=== PATIENT | male | born 1965 | race Caucasian/White ===

== ENCOUNTER 2018-04-11 16:43 | Inpatient (IN) | payer BC, MEDICARE ==
[2018-04-11] MEDS ORDERED: VANCOMYCIN IV PER PHARMACY 1 EACH MISC MISCELLANE PRN (17:51)
[2018-04-11] MEDS ORDERED: ceFAZolin IN SWFI 2 GM/20 ML SYRINGE IVP ONE (18:00)
[2018-04-11] MEDS ORDERED: VANCOMYCIN 1,750 MG in SODIUM CHLORIDE 0.9% 500 ML 500 ML IVPB ONE (18:30)
[2018-04-11] MEDS ORDERED: SODIUM CHLORIDE 0.9% 1,000 ML IV ONE (18:36)
[2018-04-11] MEDS ORDERED: MORPHINE SULFATE 4 MG/ML SYRINGE IVP STA (18:38)
[2018-04-11] MEDS ORDERED: KETOROLAC 30 MG/ML 1 ML VIAL IVP STA (18:45)
--- NOTE | 2018-04-11 18:48 | ED ---
Skin/Abscess/FB HPI - General Source: patient, RN notes reviewed, old records reviewed Mode of arrival: ambulatory Limitations: no limitations <Nahed Dickey - Last Filed: 04/11/18 19:37> <Derek Moran - Last Filed: 04/11/18 21:13> - General Chief complaint: Skin/Abscess/Foreign Body Stated complaint: RT HAND INFECTION Time Seen by Provider: 04/11/18 17:30 - History of Present Illness Initial comments: Patient is a 52-year-old male with a history of 3 days of worsening swelling and pain to the right hand. Patient reports that a few weeks ago he tripped and fell causing an abrasion over the fourth digit. Patient reports that he's had a history of chronic joint infections after he had sold surgery on the right shoulder many years ago. He's had multiple back surgeries. 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 Patient states that he's had no fevers or chills. He reports that he has had increased pain and swelling of the right hand radiating up towards the wrist. Patient states that he attempted to drain his hand himself over his fourth digit with her wrist area of what he believed be pus. He is reports he inserted a needle and only received had blood return. (Nahed Dickey) - Related Data Home Medications Medication Instructions Recorded Confirmed Cyclobenzaprine [Flexeril] 10 mg PO Q6HR PRN 04/11/18 04/11/18 Exenatide Microspheres [Bydureon 2 mg SQ MARKS 04/11/18 04/11/18 Pen] Furosemide [Lasix] 20 mg PO Q6HR PRN 04/11/18 04/11/18 HYDROmorphone HCL [Exalgo] 48 mg PO BID 04/11/18 04/11/18 HYDROmorphone [Dilaudid] 1 - 2 tab PO BID 04/11/18 04/11/18 Ibuprofen [Motrin Ib] 400 mg PO TID 04/11/18 04/11/18 LORazepam [Ativan] 1 mg PO BID 04/11/18 04/11/18 Lisinopril-Hctz 20-12.5 mg 1 tab PO DAILY 04/11/18 04/11/18 [Zestoretic 20-12.5] Prochlorperazine [Compazine] 10 mg PO TID PRN 04/11/18 04/11/18 tiZANidine [Zanaflex] 4 mg PO QID PRN 04/11/18 04/11/18 Allergies Allergy/AdvReac Type Severity Reaction Status Date / Time prednisone Allergy Rash/Hives Verified 04/11/18 17:58 Review of Systems ROS Other: All systems not noted in ROS Statement are negative. <NobleNahed - Last Filed: 04/11/18 19:37> ROS Other: All systems not noted in ROS Statement are negative. <Derek Moran - Last Filed: 04/11/18 21:13> ROS Statement: Those systems with pertinent positive or pertinent negative responses have been documented in the HPI. Past Medical History Past Medical History: Diabetes Mellitus, Hypertension, Pneumonia Additional Past Medical History / Comment(s): chronic back pain History of Any Multi-Drug Resistant Organisms: None Reported Past Surgical History: Back Surgery, Orthopedic Surgery Additional Past Surgical History / Comment(s): right knee, right shoulder Past Psychological History: No Psychological Hx Reported Smoking Status: Never smoker Past Alcohol Use History: None Reported Past Drug Use History: None Reported <NobleNahed - Last Filed: 04/11/18 19:37> General Exam Limitations: no limitations General appearance: alert, in no apparent distress Head exam: Present: atraumatic, normocephalic, normal inspection Eye exam: Present: normal appearance, PERRL, EOMI. Absent: scleral icterus, conjunctival injection, periorbital swelling ENT exam: Present: normal exam, mucous membranes moist Neck exam: Present: normal inspection. Absent: tenderness, meningismus, lymphadenopathy Respiratory exam: Present: normal lung sounds bilaterally. Absent: respiratory distress, wheezes, rales, rhonchi, stridor Cardiovascular Exam: Present: regular rate, normal rhythm, normal heart sounds. Absent: systolic murmur, diastolic murmur, rubs, gallop, clicks GI/Abdominal exam: Present: soft, normal bowel sounds. Absent: distended, tenderness, guarding, rebound, rigid Extremities exam: Present: full ROM, normal capillary refill. Absent: normal inspection, tenderness, pedal edema, joint swelling, calf tenderness Right Upper Arm exam: Present: normal inspection, full ROM Elbow exam: Present: normal inspection, full ROM Forearm Wrist exam: Present: full ROM, swelling. Absent: normal inspection Hand Wrist exam: Present: tenderness, swelling, erythema (Patient has tenderness , significant swelling and erythema over the dorsum of the right hand. Worsening erythema over the dorsum of the third fourth and fifth digit. There is evidence of skin abrasion over the proximal interphalangeal joint of the fourth digit. He has pain with any range of motion of the fingers. The refills less than 2 seconds. Normal radial pulse.). Absent: normal inspection Vascular: Present: normal capillary refill Back exam: Present: normal inspection Neurological exam: Present: alert, oriented X3, CN II-XII intact Psychiatric exam: Present: normal affect, normal mood Skin exam: Present: warm, dry, intact, normal color. Absent: rash <Nahed Dickey - Last Filed: 04/11/18 19:37> <Derek Moran - Last Filed: 04/11/18 21:13> - General Exam Comments Initial Comments: This is a 52-year-old male. Alert and oriented. Patient appears in no acute distress. (Nahed Dickey) Vital Signs 04/11/18 04/11/18 16:50 19:46 Temperature 98.4 F Pulse Rate 87 83 Respiratory 18 16 Rate Blood Pressure 167/81 165/96 O2 Sat by Pulse 98 99 Oximetry Medical Decision Making - Lab Data Result diagrams: 04/11/18 18:17 04/11/18 18:17 - Radiology Data Radiology results: report reviewed <Nahed Dickey - Last Filed: 04/11/18 19:37> - Lab Data Result diagrams: 04/11/18 18:17 04/11/18 18:17 <Derek Moran - Last Filed: 04/11/18 21:13> - Medical Decision Making 52-year-old male presents emergency department today with right hand swelling pain and infection for the past 3 days. He has an abrasion over the fourth digit that occurred a few weeks ago due to a fall. Patient suffers from chronic back pain. Multiple oral pain medications. At this time Patient reports he tried to attempt to I&D his hand today. Patient reports feeling of blood. This time he has significant cellulitis. Concern for possibility of early tenosynovitis with pain with any range of motion of the fingers. Patient blood work was reviewed, white count was unremarkable. Have a slight left shift. His ESR was elevated 100. CRP is mildly elevated at 19. Patient also has history of diabetes. Patient was started on IV, and vancomycin. Case discussed with Dr. Aguilar. I discussed the case with the Jose Liu except admission for right hand cellulitis and will consult orthopedics. (Nahed Dickey) The patient was seen and examined. All diagnostics were reviewed. The case was discussed with the PA and I agree with the findings as documented. (Derek Moran) - Lab Data Lab Results 04/11/18 04/11/18 Range/Units 18:17 18:17 WBC 9.6 (3.8-10.6) k/uL RBC 4.21 L (4.30-5.90) m/uL Hgb 12.1 L (13.0-17.5) gm/dL Hct 36.2 L (39.0-53.0) % MCV 86.2 (80.0-100.0) fL MCH 28.7 (25.0-35.0) pg MCHC 33.3 (31.0-37.0) g/dL RDW 15.1 (11.5-15.5) % Plt Count 310 (150-450) k/uL Neutrophils % 81 % Lymphocytes % 11 % Monocytes % 6 % Eosinophils % 1 % Basophils % 0 % Neutrophils # 7.8 H (1.3-7.7) k/uL Lymphocytes # 1.1 (1.0-4.8) k/uL Monocytes # 0.6 (0-1.0) k/uL Eosinophils # 0.1 (0-0.7) k/uL Basophils # 0.0 (0-0.2) k/uL ESR 104 H (0-15) mm/hr Sodium 138 (137-145) mmol/L Potassium 4.3 (3.5-5.1) mmol/L Chloride 103 (98-107) mmol/L Carbon Dioxide 26 (22-30) mmol/L Anion Gap 9 mmol/L BUN 19 (9-20) mg/dL Creatinine 0.91 (0.66-1.25) mg/dL Est GFR (CKD-EPI)AfAm >90 (>60 ml/min/1.73 sqM) Est GFR (CKD-EPI)NonAf >90 (>60 ml/min/1.73 sqM) Glucose 104 H (74-99) mg/dL Calcium 9.4 (8.4-10.2) mg/dL C-Reactive Protein 19.2 H (<10.0) mg/L - Radiology Data Evidence of soft tissue swelling on the x-ray. (Nahed Dickey) Disposition Is patient prescribed a controlled substance at d/c from ED?: No Time of Disposition: 19:39 <Nahed Dickey - Last Filed: 04/11/18 19:37> <Derek Moran - Last Filed: 04/11/18 21:13> Clinical Impression: Cellulitis of right hand Disposition: ADMITTED IP TO THIS HOSP Condition: Good Additional Instructions: Patient advised to follow-up with primary care physician. Return to emergency department if any alarming signs or symptoms occur. Referrals: Rosendo Mota MD [Primary Care Provider] - 1-2 days
[2018-04-11 18:51] LABS: Basophils % (A) 0 %; Eosinophils # (A) 0.1 k/uL (0-0.7); Eosinophils % (A) 1 %; HCT 36.2 % (39.0-53.0); HGB 12.1 gm/dL (13.0-17.5); Lymphocytes # (A) 1.1 k/uL (1.0-4.8); Lymphocytes % (A) 11 %; MCH 28.7 pg (25.0-35.0); MCHC 33.3 g/dL (31.0-37.0); MCV 86.2 fL (80.0-100.0); Monocytes # (A) 0.6 k/uL (0-1.0); Monocytes % (A) 6 %; Neutrophils # (A) 7.8 k/uL (1.3-7.7); Neutrophils % (A) 81 %; Platelet Count 310 k/uL (150-450); RBC 4.21 m/uL (4.30-5.90); RDW 15.1 % (11.5-15.5); WBC 9.6 k/uL (3.8-10.6)
[2018-04-11 18:53] LABS: Anion Gap 9 mmol/L; Blood Urea Nitrogen 19 mg/dL (9-20); C Reactive Protein 19.2 mg/L (<10.0); Calcium 9.4 mg/dL (8.4-10.2); Carbon Dioxide 26 mmol/L (22-30); Chloride 103 mmol/L (98-107); Glucose 104 mg/dL (74-99); Potassium 4.3 mmol/L (3.5-5.1); Sodium 138 mmol/L (137-145)
--- NOTE | 2018-04-11 19:05 | XR ---
PROCEDURE: XR hand complete RT 3V DATE AND TIME: 04/11/2018 6:36 PM CLINICAL INDICATION: Infection/pain TECHNIQUE: Department protocol. 3V COMPARISON: None FINDINGS: Diffuse nonspecific soft tissue is noted. No focal soft tissue findings. No radiopaque foreign bodies. No soft tissue emphysema. There is no fracture or malalignment. There is no focal osteopenia. No erosions or radiographic evide nce of joint effusion. IMPRESSION: Soft tissue swelling
[2018-04-11 19:36] LABS: Erythrocyte Sedimentation Rate 104 mm/hr (0-15)
[2018-04-11] MEDS ORDERED: ONDANSETRON 4 MG/2 ML VIAL IVP PRN (19:40)
[2018-04-11] MEDS ORDERED: ACETAMINOPHEN TAB 325 MG TAB PO PRN (19:40)
[2018-04-11] MEDS ORDERED: IBUPROFEN 400 MG TAB PO PRN (19:40)
[2018-04-11] MEDS ORDERED: MORPHINE SULFATE 4 MG/ML SYRINGE IV PRN (19:40)
[2018-04-11] MEDS ORDERED: LORazepam 2 MG/ML INJ IV PRN (19:40)
[2018-04-11] MEDS ORDERED: NALOXONE 0.4 MG/ML 1 ML VIAL IV PRN (19:40)
[2018-04-11] MEDS ORDERED: CYCLOBENZAPRINE 10 MG TAB PO PRN (19:52)
[2018-04-11] MEDS ORDERED: FUROSEMIDE 20 MG TAB PO PRN (19:52)
[2018-04-11] MEDS ORDERED: tiZANidine 4 MG TAB PO PRN (19:52)
[2018-04-11] MEDS ORDERED: PROCHLORPERAZINE 10 MG TAB PO PRN (19:52)
[2018-04-11] MEDS: HYDROMORPHONE HCL PO SCH (22:45)
[2018-04-11 23:07] VITALS: BMI 38.6
[2018-04-11] MEDS: LORazepam 1 MG TAB PO SCH (23:16)
[2018-04-11] MEDS: IBUPROFEN 400 MG TAB PO SCH (23:17)
[2018-04-11 23:19] LABS: Glucose,Whole Blood 116 mg/dL (75-99)
[2018-04-11] MEDS: SODIUM CHLORIDE 0.9% 1,000 ML IV SCH (23:57)
[2018-04-12] MEDS: KETOROLAC 30 MG/ML 1 ML VIAL IVP PRN ×2 (01:42→08:12)
[2018-04-12] MEDS: HYDROmorphone 1 MG/ML 1 ML SYRINGE IVP PRN ×7 (03:09→23:40)
[2018-04-12] MEDS: VANCOMYCIN 1,500 MG in SODIUM CHLORIDE 0.9% 250 ML IVPB SCH ×3 (03:11→20:38)
[2018-04-12] MEDS: SODIUM CHLORIDE 0.9% 1,000 ML IV SCH ×2 (05:56→13:41)
[2018-04-12] MEDS: HYDROMORPHONE HCL PO SCH (08:16)
[2018-04-12] MEDS: LORazepam 1 MG TAB PO SCH ×2 (08:18→21:13)
[2018-04-12] MEDS: LISINOPRIL-HCTZ 20-12.5 MG 1 EACH TAB PO SCH ×3 (08:18→11:13)
[2018-04-12] MEDS: PANTOPRAZOLE 40 MG/10 ML VIAL IV SCH (08:38)
[2018-04-12] MEDS: IBUPROFEN 400 MG TAB PO SCH ×3 (10:14→21:07)
--- NOTE | 2018-04-12 13:02 | P.CNOR ---
History of Present Illness - [facility] Consult date: 04/12/18 Requesting physician: Nahed Dickey Consult reason: other (Right hand and fourth metacarpal cellulitis) History of present illness: Patient is a very pleasant 52-year-old male who is seen at the bedside for further evaluation of the right hand. Patient states he sustained multiple falls at home at nighttime of unknown cause approximately 2 weeks ago. At that time he sustained a small abrasion over the dorsum of the right ring finger near the knuckle of the hand. Over the past couple days he has noticed increased erythema and swelling over the abrasion location. He presented to the emergency department yesterday for further evaluation. At that time he was admitted and started on vancomycin. He states since his admission symptoms have significantly worsened. He now has significant swelling over the right hand with a raised palpable fluid collection over the dorsum of the right ring finger near the fourth metacarpal phalangeal joint. He has decreased range of motion of the right hand. He is unable to make a fist. His pain is present but is controlled. He is more concerned about the significant swelling that is radiating into the right hand and wrist. He does have erythema over the dorsum of the right ring finger and hand that is quite significant. The erythema is most significant near the fourth metacarpal phalangeal joint just distal to this joint. He also has erythema on the palmar side of the hand most significant at the fourth metacarpal phalangeal joint. He states he has noticed some spasms of the right hand that started since his admittance. He denies any other injuries. He denies difficulty with range of motion of the right shoulder or right elbow. Patient has a medical history which includes diabetes mellitus and hypertension. Past Medical History Past Medical History: Diabetes Mellitus, Hypertension, Pneumonia Additional Past Medical History / Comment(s): Chronic back pain History of Any Multi-Drug Resistant Organisms: None Reported Past Surgical History: Back Surgery, Orthopedic Surgery Additional Past Surgical History / Comment(s): Right knee, right shoulder, multiple back surgeries with hardware. Past Psychological History: No Psychological Hx Reported Smoking Status: Never smoker Past Alcohol Use History: None Reported Past Drug Use History: None Reported Medications and Allergies Home Medications Medication Instructions Recorded Confirmed Type Cyclobenzaprine [Flexeril] 10 mg PO Q6HR PRN 04/11/18 04/11/18 History Exenatide Microspheres [Bydureon 2 mg SQ MARKS 04/11/18 04/11/18 History Pen] Furosemide [Lasix] 20 mg PO Q6HR PRN 04/11/18 04/11/18 History HYDROmorphone HCL [Exalgo] 48 mg PO BID 04/11/18 04/11/18 History HYDROmorphone [Dilaudid] 1 - 2 tab PO BID 04/11/18 04/11/18 History Ibuprofen [Motrin Ib] 400 mg PO TID 04/11/18 04/11/18 History LORazepam [Ativan] 1 mg PO BID 04/11/18 04/11/18 History Lisinopril-Hctz 20-12.5 mg 1 tab PO DAILY 04/11/18 04/11/18 History [Zestoretic 20-12.5] Prochlorperazine [Compazine] 10 mg PO TID PRN 04/11/18 04/11/18 History tiZANidine [Zanaflex] 4 mg PO QID PRN 04/11/18 04/11/18 History Allergies Allergy/AdvReac Type Severity Reaction Status Date / Time prednisone Allergy Rash/Hives Verified 04/11/18 23:18 Physical Examination Physical Exam: Patient is awake, alert, and oriented 3 Vital signs stable Good chest excursion with deep inspiration and expiration Evidence of significant swelling over the right hand with a raised palpable fluid collection over the dorsum of the right ring finger near the fourth metacarpal phalangeal joint Decreased range of motion of the right hand with difficulty making a fist and performing extension of the fingers Evidence of swelling over all fingers of the right hand, the right hand, and extending to the right wrist Evidence of erythema over the dorsum of the right ring finger and hand with the erythema is most significant near the fourth metacarpal phalangeal joint just distal to this joint Evidence of erythema on the palmar side of the hand most significant at the fourth metacarpal phalangeal joint Pain on palpation around the elevated wound site Neurovascular intact right upper extremity Adequate full range of motion of the right elbow and shoulder without difficulty Results X-rays of the right hand: Evidence of soft tissue swelling without evidence of fracture, erosion, radiopaque foreign body, or joint effusion - Labs Labs: Abnormal Lab Results - Last 24 Hours (Table) 04/11/18 04/11/18 04/11/18 Range/Units 18:17 18:17 23:15 RBC 4.21 L (4.30-5.90) m/uL Hgb 12.1 L (13.0-17.5) gm/dL Hct 36.2 L (39.0-53.0) % Neutrophils # 7.8 H (1.3-7.7) k/uL ESR 104 H (0-15) mm/hr Glucose 104 H (74-99) mg/dL POC Glucose (mg/dL) 116 H (75-99) mg/dL C-Reactive Protein 19.2 H (<10.0) mg/L H & H 04/11/18 Range/Units 18:17 Hgb 12.1 L (13.0-17.5) gm/dL Hct 36.2 L (39.0-53.0) % Result Diagrams: 04/11/18 18:17 04/11/18 18:17 Assessment and Plan Assessment: Assessment: Status post I&D palpable fluid collection of the right proximal fourth metacarpal near the fourth metacarpal phalangeal joint Right hand and fourth digit cellulitis Wound with fluid collection over the right dorsal ring finger near the fourth metacarpal phalangeal joint Swelling at the right fingers, hand, and wrist Decreased range of motion with flexion and extension of the fingers of the right hand Pain at the right fourth digit and right hand History of hypertension and diabetes mellitus (1) Right hand pain Current Visit: Yes Status: Acute Code(s): M79.641 - PAIN IN RIGHT HAND SNOMED Code(s): 19789080 (2) Swelling of right hand Current Visit: Yes Status: Acute Code(s): M79.89 - OTHER SPECIFIED SOFT TISSUE DISORDERS SNOMED Code(s): 212965714 (3) History of hypertension Current Visit: Yes Status: Acute Code(s): Z86.79 - PERSONAL HISTORY OF OTHER DISEASES OF THE CIRCULATORY SYSTEM SNOMED Code(s): 188878520 (4) History of diabetes mellitus Current Visit: Yes Status: Acute Code(s): Z86.39 - PERSONAL HISTORY OF ENDO , NUTRITIONAL AND METABOLIC DISEASE SNOMED Code(s): 784530358 (5) Cellulitis of right hand Current Visit: Yes Status: Acute Code(s): L03.113 - CELLULITIS OF RIGHT UPPER LIMB SNOMED Code(s): 26692121 Plan: Plan: 1. Patient has been discussed in detail with Dr. Jackson. Given the elevated fluid collection which appears just under the skin, we will plan for bedside irrigation and debridement. We will take culture and sent the culture for aerobic testing. Patient will plan to proceed with 30 minutes soaks 4 times per day with warm soapy water. When wound site is not being soaked, we will plan for dry dressing to be placed. Patient may also elevate the right hand, massage the area, and apply ice for comfort support as needed. We will plan to continue with antibiotic IV treatment with vancomycin as prescribed. Consultation has been placed for Dr. Emery in infectious disease. He may adjust the antibiotic medications as he feels appropriate. We will continue to follow the patient closely. Patient has been discussed in detail with Dr. Mello Jackson who agrees with this plan. Dr. Jackson will plan to see the patient at the bedside today. 2. Consultation has been placed with Dr. Emery in infectious disease 3. Medicine will continue to follow the patient Time with Patient: Greater than 30
--- NOTE | 2018-04-12 13:08 | P.PN ---
Progress Note - Text Progress Note Date: 04/12/18 Procedure performed: Irrigation and debridement of the wound of the dorsum of the fourth metacarpal near but not into the fourth metacarpal phalangeal joint Procedure performed by: Alfredo Lazo PA-C Procedure note: Irrigation and debridement procedure was described in detail with the patient and his family. Plan of care following irrigation and debridement was discussed with the patient and his family in detail. Patient agreed to proceed forward bedside irrigation and debridement. Patient's right hand was draped over a wash basin. A 10 blade scalpel was used to make a 2 cm incision over the wound site at the dorsum of the fourth metacarpal near but not into the fourth metacarpal phalangeal joint. Evidence of pus and blood evacuated from the incision site. The wound site was swabbed for culture and sent for aerobic testing. The wound site was irrigated with 20 mL of saline and the wound site appeared clean. Patient tolerated the procedure well. Wound was not dressed at that time. Patient was prepped to proceed forward with warm soapy water soak for half hour for the wound site.
[2018-04-12] MEDS: HYDROMORPHONE HCL 16 MG PO SCH ×2 (13:38→21:08)
[2018-04-12] MEDS ORDERED: HYDROcodone/APAP 5-325MG 1 EACH TAB PO PRN (18:26)
[2018-04-12] MEDS: ceFAZolin IN SWFI 2 GM/20 ML SYRINGE IVP SCH (20:38)
[2018-04-12] MEDS ORDERED: TEMAZEPAM 15 MG CAP PO PRN (21:00)
[2018-04-12] MEDS: HEPARIN SODIUM,PORCINE 5,000 UNIT/ML 1 ML VIAL SQ SCH (21:06)
[2018-04-12 21:12] LABS: Glucose,Whole Blood 123 mg/dL (75-99)
[2018-04-12] MEDS: INSULIN ASPART 100 UNIT/ML 1 ML 10 ML VIAL SQ SCH (21:14)
--- NOTE | 2018-04-12 23:27 | HP ---
HISTORY AND PHYSICAL CHIEF COMPLAINTS: Pain and swelling of the right index finger. HISTORY OF PRESENT ILLNESS: This 52-year-old gentleman with a past medical history of multiple medical problems including diabetes, hypertension, history of pneumonia, history of DJD being followed by Dr. Rosendo Mota in the outpatient setting apparently fell in the bathroom and caused abrasion of the 4th digit and subsequently patient developed significant infection and abscess and Orthopedics saw the patient and is planning incision drainage at this time on the right hand on the 4th digit. There is no history of fever, rigors. No history of headache, loss of consciousness, seizures at this time. White count is 9.6. The patient also had hand x-ray which showed soft tissue swelling. There is no history of fever, rigors or chills at this time. PAST MEDICAL HISTORY: Diabetes type 2, hypertension, history of pneumonia, history of chronic back pain. MEDICATIONS: Prior to admission home medications are: 1. Zanaflex 4 mg q.i.d. p.r.n. 2. Zestril 20/12.5 p.o. daily. 3. Ativan 1 mg p.o. b.i.d. 4. Motrin 400 mg p.o. t.i.d. 5. Exalgo 48 mg p.o. b.i.d. 6. Dilaudid 1 tablet p.o. b.i.d. 7. Lasix 20 mg q.6 p.r.n. 8. Bydureon 20 units subcu. 9. Flexeril 10 mg p.o. q.6h p.r.n. 10.Compazine 10 mg p.o. t.i.d. p.r.n. ALLERGIES: PREDNISONE. FAMILY HISTORY: No history of heart disease or strokes in the family. SOCIAL HISTORY: No history of smoking. No history of alcohol intake. REVIEW OF SYSTEMS: ENT: No diminished hearing or vision. CARDIOVASCULAR: No angina or palpitations. RESPIRATORY: No cough or hemoptysis. GI: No nausea or vomiting. : No dysuria. NERVOUS SYSTEM: No numbness or weakness. ALLERGY/IMMUNOLOGY: No asthma or hayfever. MUSCULOSKELETAL as mentioned earlier. HEMATOLOGY/ONCOLOGY: No history of anemia. ENDOCRINE: As mentioned earlier. CONSTITUTIONAL: As mentioned earlier. Dermatology: Negative. Rheumatology: Negative. Psychiatry: As mentioned earlier. PHYSICAL EXAMINATION: GENERAL: The patient is alert and oriented times three. VITAL SIGNS: Pulse 113, blood pressure 140/71. Respiratory rate 18, temperature 98.9, pulse ox 94% on room air. HEENT: Conjunctivae normal. Oral mucosa moist. NECK is no jugular venous distention. No carotid bruit. No lymph node enlargement. CARDIOVASCULAR: S1, S2 muffled. RESPIRATORY: Breath sounds diminished in the bases. A few scattered rhonchi and crackles. ABDOMEN: Soft, nontender. No mass palpable. Minimal facial puffiness present. LEGS: No edema. No swelling. NERVOUS SYSTEM: No focal deficits. Examination of the hand: The right hand has significant swelling and pain and as well as significant pointing also of the proximal phalanx of the 4th finger present. LABS: WBC 9.2, hemoglobin 12.1. 19.2. ASSESSMENT: 1. Acute cellulitis of the right fourth digit. 2. Diabetes mellitus type 2. 3. Hypertension. 4. History of pneumonia. 5. History of chronic back pain and degenerative joint disease. RECOMMENDATIONS AND DISCUSSION: This 52-year-old gentleman presented with multiple complex medical issues, we will monitor the patient closely. Continue the current medications, continue with monitoring, symptomatic treatment. We will initiate broad-spectrum IV antibiotics. The patient is started on vancomycin. I would add Unasyn to the current regimen and I would also recommend to monitor blood sugars closely and continue to monitor. We will also get infectious disease evaluation. Overall prognosis guarded because of multiple complex medical issues. Further recommendations to follow. MMODL / IJN: [id number] / MTDD
--- NOTE | 2018-04-12 23:34 | P.CONS ---
History of Present Illness - Reason for Consult Consult date: 04/12/18 - Chief Complaint pain right hand - History of Present Illness 52 year old male with multiple medical problems presents to the ER with complaints of rapidly progressive pain and swelling to the right hand. Patient relates that he has had medical problems over the years including chronic facial edema of an unknown etiology.The patient relates that he's been having increasing difficulties over the last several days. He relates that at nighttime when he gets up sometimes to urinate feels quite poorly in the other night upon awakening he was stumbling because he was so weak and appears to have had a near syncopal event following through a doorway injuring his right hand. He relates that he scraped the top of the hand. For the first few days does not seem to be much of an issue. But then just before admission the hand started to become much more painful. He has a history of chronic back pain and relates he normally does well with chronic pain. Today he started to swell became immensely painful and presented to the emergency center. He is subsequently been seen by orthopedics and an incision and drainage was performed of the abscess that had formed on the dorsum of the right hand fourth finger. This time the patient is feeling better but still poorly because of the pain swelling and drainage. He believes he had a fever at home but did not check his temperature. He is having no further chill or right ear. He relates that he's been resting and has had no further presyncopal events. Review of Systems 52-year-old maleuncomfortable HEENT:Denies headache or acute visual change. Denies sinus or mouth discomforts. Denies neck stiffness or pain. Denies significant oral cavity pain. Denies difficulty on swallowing.chronic facial swelling Lungs: Denies significant shortness of breath, cough, sputum production, or hemoptysis. Cardiovascular: Denies significant shortness of breath, chest pain, chest wall pain, orthopnea, dyspnea on exertion, syncope Gastrointestinal:Denies nausea, vomiting, diarrhea, constipation, hematemesis, melena, hematochezia. No no significant change of bowel habit noticed. Musculoskeletal: denies significant myalgias or arthralgias. No new joint swelling. Denies new back pain. Skin: as per the HPI wound and infection to the right hand Neuro: Denies headache or visual change. Denies any new onset weakness or difficulty with ambulation. Denies falls or seizures. Psychiatric:Denies anxiety or depression. Endocrine: Ongoing fatigue questionable diabetes, nursing staff relates he became quite angry when diabetes was discussed Past Medical History Past Medical History: Diabetes Mellitus, Hypertension, Pneumonia Additional Past Medical History / Comment(s): Chronic back pain History of Any Multi-Drug Resistant Organisms: None Reported Past Surgical History: Back Surgery, Orthopedic Surgery Additional Past Surgical History / Comment(s): Right knee, right shoulder, multiple back surgeries with hardware. Past Psychological History: No Psychological Hx Reported Additional Psychological History / Comment(s): and lives in the family is . One adult child. No experience. No international travel. Disabled. No tobacco or alcohol use related Smoking Status: Never smoker Past Alcohol Use History: None Reported Past Drug Use History: None Reported Medications and Allergies Home Medications and Allergies Comment(s): Current Medications Acetaminophen (Tylenol Tab) 650 mg PO Q6HR PRN PRN Reason: Mild Pain or Fever > 100.5 Hydrocodone Bitart/Acetaminophen (Kittrell 5-325) 1 each PO Q6HR PRN PRN Reason: Pain Cefazolin Sodium (Kefzol) 2 gm IVP Q8H [facility] Last Admin: 04/12/18 20:38 Dose: 2 gm Cyclobenzaprine HCl (Flexeril) 10 mg PO Q6HR PRN PRN Reason: Spasms Furosemide (Lasix) 20 mg PO Q6HR PRN PRN Reason: WATER RETENTION Lisinopril/HCTZ (Zestoretic 20-12.5) 1 each PO DAILY [facility] Last Admin: 04/12/18 11:13 Dose: 1 each Heparin Sodium (Porcine) (Heparin) 5,000 unit SQ Q12HR [facility] Last Admin: 04/12/18 21:06 Dose: Not Given Hydromorphone HCl (Dilaudid) 0.5 mg IVP Q4HR PRN PRN Reason: Pain Last Admin: 04/12/18 19:42 Dose: 0.5 mg Sodium Chloride (Saline 0.9%) 1,000 mls @ 100 mls/hr IV .Q10H [facility] Last Admin: 04/12/18 13:41 Dose: 100 mls/hr Vancomycin HCl 1,500 mg/ (Sodium Chloride) 250 mls @ 125 mls/hr IVPB Q8H [facility] Last Admin: 04/12/18 20:38 Dose: 125 mls/hr Ibuprofen (Motrin) 400 mg PO TID [facility] Last Admin: 04/12/18 21:07 Dose: 400 mg Insulin Aspart (Novolog) 0 unit SQ ACHS [facility]; Protocol Last Admin: 04/12/18 21:14 Dose: Not Given Ketorolac Tromethamine (Toradol) 30 mg IVP Q6HR PRN PRN Reason: Moderate Pain Stop: 04/16/18 19:41 Last Admin: 04/12/18 08:12 Dose: 30 mg Lorazepam (Ativan) 0.5 mg IV Q6HR PRN PRN Reason: Anxiety Lorazepam (Ativan) 1 mg PO BID [facility] Last Admin: 04/12/18 21:13 Dose: Not Given Miscellaneous Information (Vancomycin Trough Due) 1 each MISCELLANE ONCE ONE Stop: 04/13/18 11:01 Naloxone HCl (Narcan) 0.2 mg IV Q2M PRN PRN Reason: Opioid Reversal Non-Formulary Medication (Exenatide Microspheres [Bydureon Pen]) 2 mg SQ [facility] Hydromorphone Hcl [ (Exalgo] 16 Mg) 48 mg PO BID [facility] Last Admin: 04/12/18 21:08 Dose: 48 mg Ondansetron HCl (Zofran) 4 mg IVP Q8HR PRN PRN Reason: Nausea And Vomiting Pantoprazole Sodium (Protonix) 40 mg IV DAILY [facility] Last Admin: 04/12/18 08:38 Dose: 40 mg Prochlorperazine Maleate (Compazine) 10 mg PO TID PRN PRN Reason: Nausea And Vomiting Temazepam (Restoril) 15 mg PO HS PRN PRN Reason: Insomnia Tizanidine HCl (Zanaflex) 4 mg PO QID PRN PRN Reason: Spasms Last Admin: 04/11/18 23:13 Dose: 4 mg Home Medications Medication Instructions Recorded Confirmed Type Cyclobenzaprine [Flexeril] 10 mg PO Q6HR PRN 04/11/18 04/11/18 History Exenatide Microspheres [Bydureon 2 mg SQ [facility]KS 04/11/18 04/11/18 History Pen] Furosemide [Lasix] 20 mg PO Q6HR PRN 04/11/18 04/11/18 History HYDROmorphone HCL [Exalgo] 48 mg PO BID 04/11/18 04/11/18 History HYDROmorphone [Dilaudid] 1 - 2 tab PO BID 04/11/18 04/11/18 History Ibuprofen [Motrin Ib] 400 mg PO TID 04/11/18 04/11/18 History LORazepam [Ativan] 1 mg PO BID 04/11/18 04/11/18 History Lisinopril-Hctz 20-12.5 mg 1 tab PO DAILY 04/11/18 04/11/18 History [Zestoretic 20-12.5] Prochlorperazine [Compazine] 10 mg PO TID PRN 04/11/18 04/11/18 History tiZANidine [Zanaflex] 4 mg PO QID PRN 04/11/18 04/11/18 History Allergies Allergy/AdvReac Type Severity Reaction Status Date / Time prednisone Allergy Rash/Hives Verified 04/11/18 23:18 Physical Exam Vitals: Vital Signs Temp Pulse Resp BP Pulse Ox 04/12/18 15:00 98.9 F 113 H 18 145/79 94 L 04/12/18 07:00 96.5 F L 60 18 148/72 96 04/11/18 23:15 97.2 F L 79 20 155/85 99 Intake and Output 04/12/18 04/12/18 04/12/18 06:59 14:59 22:59 Intake Total 200 Balance 200 Intake: Oral 200 Other: Voiding Method Toilet # Voids 3 Weight 92.805 kg 52-year-old male in no distress HEENT: Anicteric conjunctiva are pink and moist nasal mucosa grossly intact without significant lesions, there is no thrush.he has facial edema particularly periorbital in naturenontender no open lesions Neck: The neck is supple without significant lymphadenopathy or thyromegaly. Lungs: Good bilateral air entry without significant crackles or wheezing. There is no significant bronchial sounds. There is no egophony or dullness. Heart: Regular rate and rhythm with an audible S1-S2, no S3 no S4. There is no significant murmur click or rub, PMI was nondisplaced. Abdomen: Positive bowel sounds soft and nontender without palpable masses or organomegaly. There was no guarding or rebound. Extremities: left arm is normal. Left arm reveals evidence of the dressing in place on the right hand from the recent incision and drainage of the abscess on the dorsum of the right fourth finger. Dressing not removed. There is the lack of significant ascending erythema. There is no epitrochlear or axillary lymphadenopathy. No other abnormal lymph nodes are seen. Lower extremities have minimal trace edema. No other open ulcerations are seen. Neuro: Awake alert oriented to person place and time. There are no acute new gross focal sensory motor deficits. Results CBC & Chem 7: 04/11/18 18:17 04/11/18 18:17 Labs: Abnormal Lab Results - Last 24 Hours (Table) 04/11/18 04/12/18 Range/Units 23:15 21:11 POC Glucose (mg/dL) 116 H 123 H (75-99) mg/dL Microbiology - Last 24 Hours (Table) 04/11/18 18:17 Blood Culture - Preliminary Blood No Growth after 24 hours Laboratory Results WBC 9.6 k/uL (3.8-10.6) 04/11/18 18:17 RBC 4.21 m/uL (4.30-5.90) L 04/11/18 18:17 Hgb 12.1 gm/dL (13.0-17.5) L 04/11/18 18:17 Hct 36.2 % (39.0-53.0) L 04/11/18 18:17 MCV 86.2 fL (80.0-100.0) 04/11/18 18:17 MCH 28.7 pg (25.0-35.0) 04/11/18 18:17 MCHC 33.3 g/dL (31.0-37.0) 04/11/18 18:17 RDW 15.1 % (11.5-15.5) 04/11/18 18:17 Plt Count 310 k/uL (150-450) 04/11/18 18:17 Neutrophils % 81 % 04/11/18 18:17 Lymphocytes % 11 % 04/11/18 18:17 Monocytes % 6 % 04/11/18 18:17 Eosinophils % 1 % 04/11/18 18:17 Basophils % 0 % 04/11/18 18:17 Neutrophils # 7.8 k/uL (1.3-7.7) H 04/11/18 18:17 Lymphocytes # 1.1 k/uL (1.0-4.8) 04/11/18 18:17 Monocytes # 0.6 k/uL (0-1.0) 04/11/18 18:17 Eosinophils # 0.1 k/uL (0-0.7) 04/11/18 18:17 Basophils # 0.0 k/uL (0-0.2) 04/11/18 18:17 ESR 104 mm/hr (0-15) H 04/11/18 18:17 Sodium 138 mmol/L (137-145) 04/11/18 18:17 Potassium 4.3 mmol/L (3.5-5.1) 04/11/18 18:17 Chloride 103 mmol/L (98-107) 04/11/18 18:17 Carbon Dioxide 26 mmol/L (22-30) 04/11/18 18:17 Anion Gap 9 mmol/L 04/11/18 18:17 BUN 19 mg/dL (9-20) 04/11/18 18:17 Creatinine 0.91 mg/dL (0.66-1.25) 04/11/18 18:17 Est GFR (CKD-EPI)AfAm >90 (>60 ml/min/1.73 sqM) 04/11/18 18:17 Est GFR (CKD-EPI)NonAf >90 (>60 ml/min/1.73 sqM) 04/11/18 18:17 Glucose 104 mg/dL (74-99) H 04/11/18 18:17 POC Glucose (mg/dL) 123 mg/dL (75-99) H 04/12/18 21:11 POC Glu Double Corner Cutter ID [place], Betsy 04/12/18 21:11 Calcium 9.4 mg/dL (8.4-10.2) 04/11/18 18:17 C-Reactive Protein 19.2 mg/L (<10.0) H 04/11/18 18:17 Microbiology 04/12/18 12:11 Hand - Right Wound Culture - Preliminary 04/11/18 18:17 Blood Blood Culture - Preliminary No Growth after 24 hours Assessment and Plan (1) Abscess of right hand including fingers Narrative/Plan: [id number] who has a history of chronic back pain with multiple back surgeries relates that he had what appears to be a presyncopal event causing an injury to the dorsum of his right hand upon falling. Some local care was given and he developed a significant amount of swelling erythema and pain to the right hand. Upon presentation emergency room at rapidly worsened and he was seen by orthopedics for drainage of the developing abscess. It is related that at the time of the incision and drainage there was no tendon or joint involvement. Patient is feeling better to show some drainage at the site. Does not seem to have a significantly ascending infection at this time. Blood sugars as noted are slightly elevated. Antibiotic therapy with vancomycin therapy has been started cefazolin is added with concerns to an MSSA infection and try to maximize therapy. The patient has periorbital edema which she relates has been persistent for some time.he does not have renal failure. Thyroid status will be checked. The patient relates to what may be a presyncopal event. His pulse appears to have acceptable volume but seems to have diminished upstroke. Carotid Dopplers will be performed to further evaluate and may need echocardiogram also. His pain control appears to be adequate with the multiple lesions that are being utilized. Current Visit: Yes Status: Acute Code(s): L02.511 - CUTANEOUS ABSCESS OF RIGHT HAND SNOMED Code(s): 6598270 (2) Cellulitis of right hand Current Visit: Yes Status: Acute Code(s): L03.113 - CELLULITIS OF RIGHT UPPER LIMB SNOMED Code(s): 85417441 (3) Periorbital edema Current Visit: Yes Status: Acute Code(s): R60.0 - LOCALIZED EDEMA SNOMED Code(s): 68340557 (4) Pre-syncope Current Visit: Yes Status: Acute Code(s): R55 - SYNCOPE AND COLLAPSE SNOMED Code(s): 018267064
[2018-04-13] MEDS: HYDROmorphone 1 MG/ML 1 ML SYRINGE IVP PRN ×6 (04:11→23:56)
[2018-04-13] MEDS: VANCOMYCIN 1,500 MG in SODIUM CHLORIDE 0.9% 250 ML IVPB SCH ×3 (04:11→20:16)
[2018-04-13] MEDS: ceFAZolin IN SWFI 2 GM/20 ML SYRINGE IVP SCH ×3 (04:11→20:15)
[2018-04-13] MEDS: SODIUM CHLORIDE 0.9% 1,000 ML IV SCH ×3 (04:12→21:30)
[2018-04-13 07:47] LABS: Glucose,Whole Blood 94 mg/dL (75-99)
[2018-04-13] MEDS: INSULIN ASPART 100 UNIT/ML 1 ML 10 ML VIAL SQ SCH ×4 (07:58→21:27)
[2018-04-13] MEDS: HEPARIN SODIUM,PORCINE 5,000 UNIT/ML 1 ML VIAL SQ SCH ×2 (08:01→21:26)
[2018-04-13] MEDS: LISINOPRIL-HCTZ 20-12.5 MG 1 EACH TAB PO SCH (08:01)
[2018-04-13] MEDS: PANTOPRAZOLE 40 MG/10 ML VIAL IV SCH (08:02)
[2018-04-13] MEDS: LORazepam 1 MG TAB PO SCH (08:08)
[2018-04-13] MEDS: IBUPROFEN 400 MG TAB PO SCH ×3 (08:08→21:31)
[2018-04-13] MEDS ORDERED: LORazepam 1 MG TAB PO PRN (08:12)
--- NOTE | 2018-04-13 09:21 | US ---
EXAMINATION TYPE: US carotid duplex BILAT DATE OF EXAM: 04/13/2018 COMPARISON: NONE CLINICAL HISTORY: syncope. Patient stated he fell upon awakening EXAM MEASUREMENTS: RIGHT: Peak Systolic Velocity (PSV) cm/sec ----- Right CCA: 97.9 ----- Right ICA: 109.2 ----- Right ECA: 123.8 ICA/CCA ratio: 1.1 RIGHT: End Diastole cm/sec ----- Right CCA: 17.1 ----- Right ICA: 0.0 ----- Right ECA: 10.1 LEFT: Peak Systolic Velocity (PSV) cm/sec ----- Left CCA: 78.8 ----- Left ICA: 75.5 ----- Left ECA: 88.7 ICA/CCA ratio: 1.0 LEFT: End Diastole cm/sec ----- Left CCA: 16.1 ----- Left ICA: 22.7 ----- Left ECA: 0.0 VERTEBRALS (direction of flow): Right Vertebral: Antegrade Left Vertebral: Antegrade Rhythm: Normal IMPRESSION: Very mild intimal wall changes at right carotid bifurcation. At Left distal CCA soft wall plaque is noted in linear appearance from distal CCA to mid CCA. Criteria for Assigning % of Stenosis / Diameter reduction (Estimation based on the indirect measurements of the internal carotid artery velocities (ICA PSV). 1. Normal (no stenosis)=ICA PSV < 125 cm/s: ratio < 2.0: ICA EDV<40 cm/s. 2. Less than 50% stenosis=ICA PSV < 125 cm/s: ratio < 2.0: ICA EDV<40 cm/s. 3. 50 to 69% stenosis=ICA PSV of 125 to 230 cm/s: ration 2.0 ? 4.0: ICA EDV 40-100 cm/s. 4. Greater than 70% stenosis to near occlusion= ICA PSV > 230 cm/s: ratio > 4.0: ICA EDV > 100 cm/s. 5. Near occlusion= ICA PSV velocities may be low or undetectable: variable ratio and ICA EDV. 6. Total occlusion=unable to detect flow.
[2018-04-13] MEDS: HYDROMORPHONE HCL 16 MG PO SCH ×2 (09:30→21:26)
--- NOTE | 2018-04-13 10:02 | XR ---
EXAMINATION TYPE: XR chest 1V portable DATE OF EXAM: 04/13/2018 HISTORY: Shortness of breath. COMPARISON: None. TECHNIQUE: Single view of the chest is submitted. FINDINGS: Demonstrated are scattered senescent parenchymal change. Chronic elevation left hemidiaphragm and ch ronic pleural thickening left costophrenic angle. There is no evidence for focal infiltrate. The heart is stable. Hilar and mediastinal structures are within normal limits. Degenerative changes are seen of the dorsal spine. IMPRESSION: 1. Chronic changes without evidence for acute pulmonary disease.
--- NOTE | 2018-04-13 10:33 | PN ---
PROGRESS NOTE HISTORY: Gianfranco is a 52-year-old male with multiple medical problems, who presented to the emergency department with swelling and erythema of his right hand. He did note that he had a fall and had a scrape on the top of his hand. This progressed. He was seen yesterday by our physician senior office assistant. He had a superficial dorsal hand abscess. An incision and drainage was performed on the dorsum of the right hand 4th finger. He has done twice daily soaks and is feeling much better today. I saw him at the bedside. His hand symptoms are much better. Today's his pain is much less today. EXAM: I removed the dressing. He had an approximate 2 cm incision over the dorsal abscess on the dorsum of his right 4th finger. The erythema is much improved from yesterday. He has full flexion-extension of all fingers and he has intact sensation distally in the 4th finger. There is no evidence of any ascending erythema or infection. The dorsal incision is draining and is still draining purulent material. After my exam, we did start him in his morning soak for this. IMPRESSION: Dorsal hand abscess, right hand, improving after incision and drainage. RECOMMENDATION: We would have Gianfranco continue with the IV antibiotics. We greatly appreciate the input from Dr. Emery, infectious Disease. He currently has Gianfranco being treated with vancomycin and cefazolin. He seems to be improving quite a bit with this. The cultures from the incision and drainage yesterday show no growth at this point. We would continue with twice daily soaks and dressing changes. We will continue with the IV antibiotic treatment as per the Infectious Disease. We will continue to monitor Gianfranco while he is in the hospital. MMODL / IJN: [id number] / [facility]ITALDaniel
[2018-04-13] MEDS ORDERED: VANCOMYCIN TROUGH DUE 1 EACH MISC MISCELLANE ONE ×2 (11:00→19:00)
[2018-04-13 12:18] LABS: Glucose,Whole Blood 163 mg/dL (75-99)
[2018-04-13 12:39] LABS: Glucose,Whole Blood 162 mg/dL (75-99)
[2018-04-13] MEDS ORDERED: Exenatide Microspheres [Bydureon Pen] 2 MG SQ SCH (13:00)
[2018-04-13 15:09] LABS: Glucose,Whole Blood 73 mg/dL (75-99)
[2018-04-13 17:29] LABS: Glucose,Whole Blood 102 mg/dL (75-99)
--- NOTE | 2018-04-13 19:51 | PN ---
PROGRESS NOTE DATE OF SERVICE: 04/13/2018 This 52-year-old gentleman who was admitted with acute cellulitis, right 4th digit incision and drainage by Orthopedic Surgery. The patient had periorbital edema and facial edema also. No chest pain. No palpitations. No fever. EXAM: Alert and oriented x3. Pulse is 74, blood pressure 130/60, respirations 16, temperature 97 degrees, pulse ox 93% on room air. is conjunctivae normal. HEENT: Conjunctivae normal. Oral mucosa moist. NECK: No jugular venous distention. No lymph node enlargement. CARDIOVASCULAR: S1, S2. RESPIRATORY: Diminished breath sounds at the bases. A few scattered rhonchi, no crackles. ABDOMEN: Soft, nontender. LEGS: No swelling. NERVOUS SYSTEM: No focal deficits. Right ring finger status post incision and drainage of abscess. LABS: Accu-Cheks 162, 173. WBC 9.6, hemoglobin is 12.1. ASSESSMENT: 1. Acute cellulitis of the right 4th digit with abscess status post incision and drainage. 2. Diabetes mellitus type 2. 3. Hypertension. 4. History of pneumonia. 5. History of chronic back pain, degenerative joint disease. RECOMMENDATIONS: Continue current management, continue symptomatic treatment. Continue with IV antibiotics. Cultures are pending at this time. Closely follow with Infectious Disease and Orthopedic Surgery. Further recommendations to follow. MMODL / IJN: [id number] /
[2018-04-13] MEDS: KETOROLAC 30 MG/ML 1 ML VIAL IVP PRN (21:27)
[2018-04-13 21:31] LABS: Glucose,Whole Blood 194 mg/dL (75-99)
[2018-04-14 02:27] LABS: Glucose,Whole Blood 101 mg/dL (75-99)
[2018-04-14] MEDS: HYDROmorphone 1 MG/ML 1 ML SYRINGE IVP PRN ×5 (03:53→20:53)
[2018-04-14] MEDS: ceFAZolin IN SWFI 2 GM/20 ML SYRINGE IVP SCH ×3 (03:54→20:44)
[2018-04-14] MEDS: VANCOMYCIN 1,500 MG in SODIUM CHLORIDE 0.9% 250 ML IVPB SCH ×2 (06:01→22:06)
[2018-04-14 06:15] VITALS: RESP 18
[2018-04-14 07:26] LABS: Glucose,Whole Blood 109 mg/dL (75-99)
[2018-04-14] MEDS: INSULIN ASPART 100 UNIT/ML 1 ML 10 ML VIAL SQ SCH ×4 (07:58→21:49)
[2018-04-14] MEDS: SODIUM CHLORIDE 0.9% 1,000 ML IV SCH ×2 (08:11→19:25)
[2018-04-14] MEDS: PANTOPRAZOLE 40 MG/10 ML VIAL IV SCH (08:15)
[2018-04-14] MEDS: LISINOPRIL-HCTZ 20-12.5 MG 1 EACH TAB PO SCH (08:15)
[2018-04-14] MEDS: HEPARIN SODIUM,PORCINE 5,000 UNIT/ML 1 ML VIAL SQ SCH ×2 (08:15→20:44)
[2018-04-14] MEDS: IBUPROFEN 400 MG TAB PO SCH ×3 (08:18→20:44)
[2018-04-14] MEDS: HYDROMORPHONE HCL 16 MG PO SCH ×2 (09:50→21:49)
[2018-04-14 11:04] LABS: Hemoglobin A1C 5.8 % (4.0-6.0)
[2018-04-14 11:27] LABS: Glucose,Whole Blood 120 mg/dL (75-99)
[2018-04-14 11:35] LABS: Basophils % (A) 0 %; Eosinophils # (A) 0.2 k/uL (0-0.7); Eosinophils % (A) 4 %; HCT 33.7 % (39.0-53.0); Lymphocytes # (A) 1.3 k/uL (1.0-4.8); Lymphocytes % (A) 19 %; MCH 28.6 pg (25.0-35.0); MCHC 32.6 g/dL (31.0-37.0); MCV 87.9 fL (80.0-100.0); Mean Platelet Volume 7.9; Monocytes # (A) 0.4 k/uL (0-1.0); Monocytes % (A) 6 %; Neutrophils # (A) 4.7 k/uL (1.3-7.7); Neutrophils % (A) 69 %; Platelet Count 287 k/uL (150-450); RBC 3.83 m/uL (4.30-5.90); WBC 6.8 k/uL (3.8-10.6)
[2018-04-14 11:54] LABS: Anion Gap 7 mmol/L; Blood Urea Nitrogen 19 mg/dL (9-20); Calcium 8.7 mg/dL (8.4-10.2); Carbon Dioxide 26 mmol/L (22-30); Chloride 107 mmol/L (98-107); Glucose 108 mg/dL (74-99); Potassium 4.3 mmol/L (3.5-5.1); Sodium 140 mmol/L (137-145)
--- NOTE | 2018-04-14 14:41 | P.PN ---
Subjective Progress Note Date: 04/14/18 Principal diagnosis: Cellulitis/abscess right ring finger Patient is a 52-year-old male seen at bedside this afternoon. We are following him for cellulitis abscess of the right ring finger. Dr. Jackson has seen the patient as well as infectious disease. He's been on IV antibiotics as well as doing soaks. He feels his hand and fingers are improved some today. He currently denies fever or chills. He has no numbness or tingling. He has no other complaints. Objective - Vital Signs Vital signs: Vital Signs Temp 97.0 F L 04/14/18 14:34 Pulse 67 04/14/18 14:34 Resp 18 04/14/18 14:34 BP 153/83 04/14/18 14:34 Pulse Ox 98 04/14/18 14:34 Intake & Output 04/13/18 04/14/18 04/14/18 18:59 06:59 18:59 Intake Total 320 200 Balance 320 200 Intake: Oral 320 200 Other: Voiding Method Toilet Toilet # Voids 2 1 3 - Exam Inspection of the right hand shows erythema of the right ring finger with sloughing and mild drainage at the dorsum of the distal finger. There does not appear to be any deep fluid collection or abscess. Neurovascular status is grossly intact with motor and sensation in all digits. Less than 2 second capillary refill is present as well as 2+ radial pulse. There is no ascending erythema. - Constitutional General appearance: Present: no acute distress - Labs CBC & Chem 7: 04/14/18 11:01 04/14/18 11:01 Labs: Abnormal Lab Results - Last 24 Hours (Table) 04/13/18 04/13/18 04/13/18 Range/Units 15:06 17:17 21:04 RBC (4.30-5.90) m/uL Hgb (13.0-17.5) gm/dL Hct (39.0-53.0) % Glucose (74-99) mg/dL POC Glucose (mg/dL) 73 L 102 H 194 H (75-99) mg/dL 04/14/18 04/14/18 04/14/18 Range/Units 02:24 07:17 11:01 RBC 3.83 L (4.30-5.90) m/uL Hgb 11.0 L (13.0-17.5) gm/dL Hct 33.7 L (39.0-53.0) % Glucose (74-99) mg/dL POC Glucose (mg/dL) 101 H 109 H (75-99) mg/dL 04/14/18 04/14/18 Range/Units 11:01 11:24 RBC (4.30-5.90) m/uL Hgb (13.0-17.5) gm/dL Hct (39.0-53.0) % Glucose 108 H (74-99) mg/dL POC Glucose (mg/dL) 120 H (75-99) mg/dL Microbiology - Last 24 Hours (Table) 04/11/18 18:17 Blood Culture - Preliminary Blood No Growth after 48 hours 04/12/18 12:11 Gram Stain - Preliminary Hand - Right Wound Culture - Preliminary Assessment and Plan (1) Cellulitis of right hand Narrative/Plan: We'll continue to monitor his status as he is on IV antibiotics and showing improvement. It doesn't appear that surgical intervention is warranted as of yet but we will continue to monitor closely. Continue IV antibiotics per infectious disease as well as wound care and soaks. Current Visit: Yes Status: Acute Code(s): L03.113 - CELLULITIS OF RIGHT UPPER LIMB SNOMED Code(s): 92127385 Time with Patient: Less than 30
[2018-04-14 16:40] LABS: Glucose,Whole Blood 103 mg/dL (75-99)
--- NOTE | 2018-04-14 18:22 | P.PN ---
Subjective Patient resting in bed. States of right hand improving noted skin sloughing. Complains of chronic low back pain noted scar to low lumbar area. Noted muscle spasms to low back Objective - Vital Signs Vital signs: Vital Signs Temp 97.0 F L 04/14/18 14:34 Pulse 67 04/14/18 14:34 Resp 18 04/14/18 14:34 BP 153/83 04/14/18 14:34 Pulse Ox 98 04/14/18 14:34 Intake & Output 04/13/18 04/14/18 04/14/18 18:59 06:59 18:59 Intake Total 320 200 Balance 320 200 Intake: Oral 320 200 Other: Voiding Method Toilet Toilet # Voids 2 1 3 - Constitutional General appearance: Present: mild distress - EENT Eyes: Present: PERRLA Ears: bilateral: normal - Neck Neck: Present: normal ROM - Respiratory Respiratory: bilateral: CTA - Cardiovascular Rhythm: regular - Gastrointestinal General gastrointestinal: Present: soft - Integumentary Integumentary Comment(s): Mild sloughing skin to ring finger mild erythema to her right hand Integumentary: Present: normal - Neurologic Neurologic: Present: CNII-XII intact - Musculoskeletal Musculoskeletal: Present: generalized weakness - Psychiatric Psychiatric: Present: A&O x's 3, appropriate affect, intact judgment & insight - Labs CBC & Chem 7: 04/14/18 11:01 04/14/18 11:01 Labs: Abnormal Lab Results - Last 24 Hours (Table) 04/13/18 04/14/18 04/14/18 Range/Units 21:04 02:24 07:17 RBC (4.30-5.90) m/uL Hgb (13.0-17.5) gm/dL Hct (39.0-53.0) % Glucose (74-99) mg/dL POC Glucose (mg/dL) 194 H 101 H 109 H (75-99) mg/dL 04/14/18 04/14/18 04/14/18 Range/Units 11:01 11:01 11:24 RBC 3.83 L (4.30-5.90) m/uL Hgb 11.0 L (13.0-17.5) gm/dL Hct 33.7 L (39.0-53.0) % Glucose 108 H (74-99) mg/dL POC Glucose (mg/dL) 120 H (75-99) mg/dL 04/14/18 Range/Units 16:38 RBC (4.30-5.90) m/uL Hgb (13.0-17.5) gm/dL Hct (39.0-53.0) % Glucose (74-99) mg/dL POC Glucose (mg/dL) 103 H (75-99) mg/dL Microbiology - Last 24 Hours (Table) 04/11/18 18:17 Blood Culture - Preliminary Blood No Growth after 48 hours 04/12/18 12:11 Gram Stain - Preliminary Hand - Right Wound Culture - Preliminary Assessment and Plan Assessment: Assessment acute cellulitis right fourth digit post incision and drainage Diabetes type 2 Hypertension Degenerative joint disease chronic back pain Plan Patient on vancomycin and Continue with infectious disease and arthritic surgery
[2018-04-14 20:31] LABS: Glucose,Whole Blood 128 mg/dL (75-99)
--- NOTE | 2018-04-14 20:52 | P.PN ---
Subjective Progress Note Date: 04/14/18 52 year old male with multiple medical problems presents to the ER with complaints of rapidly progressive pain and swelling to the right hand. Patient relates that he has had medical problems over the years including chronic facial edema of an unknown etiology.The patient relates that he's been having increasing difficulties over the last several days. He relates that at nighttime when he gets up sometimes to urinate feels quite poorly in the other night upon awakening he was stumbling because he was so weak and appears to have had a near syncopal event following through a doorway injuring his right hand. He relates that he scraped the top of the hand. For the first few days does not seem to be much of an issue. But then just before admission the hand started to become much more painful. He has a history of chronic back pain and relates he normally does well with chronic pain. Today he started to swell became immensely painful and presented to the emergency center. He is subsequently been seen by orthopedics and an incision and drainage was performed of the abscess that had formed on the dorsum of the right hand fourth finger. This time the patient is feeling better but still poorly because of the pain swelling and drainage. He believes he had a fever at home but did not check his temperature. He is having no further chill or right ear. He relates that he's been resting and has had no further presyncopal events. 04/14/2018 patient is doing somewhat better today. Facial swelling is improved. His pain due to his hand is doing somewhat better also. He's having no further fevers or chills. Surgery is evaluated no plans for any further surgical intervention Objective - Vital Signs Vital signs: Vital Signs Temp 97.0 F L 04/14/18 14:34 Pulse 67 04/14/18 14:34 Resp 18 04/14/18 14:34 BP 153/83 04/14/18 14:34 Pulse Ox 98 04/14/18 14:34 Intake & Output 04/14/18 04/14/18 04/15/18 06:59 18:59 06:59 Intake Total 200 Balance 200 Intake: Oral 200 Other: Voiding Method Toilet Toilet # Voids 1 3 - Exam 52-year-old male in no distress HEENT: Anicteric conjunctiva are pink and moist nasal mucosa grossly intact without significant lesions, there is no thrush.he has facial edema particularly periorbital in naturenontender no open lesions Neck: The neck is supple without significant lymphadenopathy or thyromegaly. Lungs: Good bilateral air entry without significant crackles or wheezing. There is no significant bronchial sounds. There is no egophony or dullness. Heart: Regular rate and rhythm with an audible S1-S2, no S3 no S4. There is no significant murmur click or rub, PMI was nondisplaced. Abdomen: Positive bowel sounds soft and nontender without palpable masses or organomegaly. There was no guarding or rebound. Extremities: left arm is normal. right arm reveals evidence of the dressing in place on the right hand from the recent incision and drainage of the abscess on the dorsum of the right fourth finger. there is some good granulation and s There is the lack of significant ascending erythema. There is no epitrochlear or axillary lymphadenopathy. No other abnormal lymph nodes are seen. Lower extremities have minimal trace edema. No other open ulcerations are seen. Neuro: Awake alert oriented to person place and time. There are no acute new gross focal sensory motor deficits. - Labs CBC & Chem 7: 04/14/18 11:01 04/14/18 11:01 Labs: Abnormal Lab Results - Last 24 Hours (Table) 04/13/18 04/14/18 04/14/18 Range/Units 21:04 02:24 07:17 RBC (4.30-5.90) m/uL Hgb (13.0-17.5) gm/dL Hct (39.0-53.0) % Glucose (74-99) mg/dL POC Glucose (mg/dL) 194 H 101 H 109 H (75-99) mg/dL 04/14/18 04/14/18 04/14/18 Range/Units 11:01 11:01 11:24 RBC 3.83 L (4.30-5.90) m/uL Hgb 11.0 L (13.0-17.5) gm/dL Hct 33.7 L (39.0-53.0) % Glucose 108 H (74-99) mg/dL POC Glucose (mg/dL) 120 H (75-99) mg/dL 04/14/18 04/14/18 Range/Units 16:38 20:30 RBC (4.30-5.90) m/uL Hgb (13.0-17.5) gm/dL Hct (39.0-53.0) % Glucose (74-99) mg/dL POC Glucose (mg/dL) 103 H 128 H (75-99) mg/dL Microbiology - Last 24 Hours (Table) 04/11/18 18:17 Blood Culture - Preliminary Blood No Growth after 72 hours 04/12/18 12:11 Gram Stain - Preliminary Hand - Right Wound Culture - Preliminary Laboratory Results WBC 6.8 k/uL (3.8-10.6) 04/14/18 11:01 RBC 3.83 m/uL (4.30-5.90) L 04/14/18 11:01 Hgb 11.0 gm/dL (13.0-17.5) L 04/14/18 11:01 Hct 33.7 % (39.0-53.0) L 04/14/18 11:01 MCV 87.9 fL (80.0-100.0) 04/14/18 11:01 MCH 28.6 pg (25.0-35.0) 04/14/18 11:01 MCHC 32.6 g/dL (31.0-37.0) 04/14/18 11:01 RDW 15.0 % (11.5-15.5) 04/14/18 11:01 Plt Count 287 k/uL (150-450) 04/14/18 11:01 Neutrophils % 69 % 04/14/18 11:01 Lymphocytes % 19 % 04/14/18 11:01 Monocytes % 6 % 04/14/18 11:01 Eosinophils % 4 % 04/14/18 11:01 Basophils % 0 % 04/14/18 11:01 Neutrophils # 4.7 k/uL (1.3-7.7) 04/14/18 11:01 Lymphocytes # 1.3 k/uL (1.0-4.8) 04/14/18 11:01 Monocytes # 0.4 k/uL (0-1.0) 04/14/18 11:01 Eosinophils # 0.2 k/uL (0-0.7) 04/14/18 11:01 Basophils # 0.0 k/uL (0-0.2) 04/14/18 11:01 ESR 104 mm/hr (0-15) H 04/11/18 18:17 Sodium 140 mmol/L (137-145) 04/14/18 11:01 Potassium 4.3 mmol/L (3.5-5.1) 04/14/18 11:01 Chloride 107 mmol/L (98-107) 04/14/18 11:01 Carbon Dioxide 26 mmol/L (22-30) 04/14/18 11:01 Anion Gap 7 mmol/L 04/14/18 11:01 BUN 19 mg/dL (9-20) 04/14/18 11:01 Creatinine 0.85 mg/dL (0.66-1.25) 04/14/18 11:01 Est GFR (CKD-EPI)AfAm >90 (>60 ml/min/1.73 sqM) 04/14/18 11:01 Est GFR (CKD-EPI)NonAf >90 (>60 ml/min/1.73 sqM) 04/14/18 11:01 Glucose 108 mg/dL (74-99) H 04/14/18 11:01 POC Glucose (mg/dL) 128 mg/dL (75-99) H 04/14/18 20:30 POC Glu Physical Therapy Coordinator ID Dye, Evelyn 04/14/18 20:[address] Glu mg/dL 120 04/13/18 19:38 Hemoglobin A1c 5.8 % (4.0-6.0) 04/13/18 19:38 Calcium 8.7 mg/dL (8.4-10.2) 04/14/18 11:01 C-Reactive Protein 19.2 mg/L (<10.0) H 04/11/18 18:17 TSH 1.650 mIU/L (0.465-4.680) 04/13/18 19:38 Vancomycin Trough 29.8 ug/mL 04/13/18 19:38 WIL Screen NEGATIVE (NEGATIVE) 04/13/18 19:38 Microbiology 04/11/18 18:17 Blood Blood Culture - Preliminary No Growth after 72 hours 04/12/18 12:11 Hand - Right Gram Stain - Preliminary 04/12/18 12:11 Hand - Right Wound Culture - Preliminary - Imaging and Cardiology carotid Doppler without evidence of compression or stenosis TSH is normal WIL is negative Assessment and Plan (1) Abscess of right hand including fingers Narrative/Plan: [id number] who has a history of chronic back pain with multiple back surgeries relates that he had what appears to be a presyncopal event causing an injury to the dorsum of his right hand upon falling. Some local care was given and he developed a significant amount of swelling erythema and pain to the right hand. Upon presentation emergency room at rapidly worsened and he was seen by orthopedics for drainage of the developing abscess. It is related that at the time of the incision and drainage there was no tendon or joint involvement. Patient is feeling better to show some drainage at the site. Does not seem to have a significantly ascending infection at this time. Blood sugars as noted are slightly elevated. Antibiotic therapy with vancomycin therapy has been started cefazolin is added with concerns to an MSSA infection and try to maximize therapy. The patient has periorbital edema which she relates has been persistent for some time.he does not have renal failure. Thyroid status will be checked. The patient relates to what may be a presyncopal event. His pulse appears to have acceptable volume but seems to have diminished upstroke. Carotid Dopplers will be performed to further evaluate and may need echocardiogram also. His pain control appears to be adequate with the multiple lesions that are being utilized. 04/14/2018 patient is feeling somewhat better today. Sitting upright eating without difficulties. He has been evaluated by orthopedic surgery with no plans for any further surgical intervention. Continue with current antibiotic therapy while cultures are in process. Fortunately no evidence of any significant hemodynamic compromise to his carotid arteries TSH and WIL are normal as is creatinine. is elevating his right hand with some improvement. Current Visit: Yes Status: Acute Code(s): L02.511 - CUTANEOUS ABSCESS OF RIGHT HAND SNOMED Code(s): 9181961 (2) Cellulitis of right hand Current Visit: Yes Status: Acute Code(s): L03.113 - CELLULITIS OF RIGHT UPPER LIMB SNOMED Code(s): 99879883 (3) Periorbital edema Current Visit: Yes Status: Acute Code(s): R60.0 - LOCALIZED EDEMA SNOMED Code(s): 68627064 (4) Pre-syncope Current Visit: Yes Status: Acute Code(s): R55 - SYNCOPE AND COLLAPSE SNOMED Code(s): 003830223
[2018-04-15] MEDS: HYDROmorphone 1 MG/ML 1 ML SYRINGE IVP PRN ×6 (01:03→19:59)
[2018-04-15 01:54] LABS: Glucose,Whole Blood 107 mg/dL (75-99)
[2018-04-15] MEDS: ceFAZolin IN SWFI 2 GM/20 ML SYRINGE IVP SCH ×3 (04:02→20:59)
[2018-04-15] MEDS: LISINOPRIL-HCTZ 20-12.5 MG 1 EACH TAB PO SCH (06:28)
[2018-04-15] MEDS: SODIUM CHLORIDE 0.9% 1,000 ML IV SCH ×3 (06:34→21:58)
[2018-04-15 07:21] LABS: Glucose,Whole Blood 105 mg/dL (75-99)
[2018-04-15] MEDS: INSULIN ASPART 100 UNIT/ML 1 ML 10 ML VIAL SQ SCH ×4 (07:21→21:02)
[2018-04-15] MEDS: HEPARIN SODIUM,PORCINE 5,000 UNIT/ML 1 ML VIAL SQ SCH ×2 (08:11→21:01)
[2018-04-15] MEDS: PANTOPRAZOLE 40 MG TABLET PO SCH (08:11)
[2018-04-15] MEDS: HYDROMORPHONE HCL 16 MG PO SCH ×2 (09:30→21:01)
[2018-04-15] MEDS: IBUPROFEN 400 MG TAB PO SCH ×3 (09:43→21:56)
[2018-04-15 10:50] LABS: Basophils % (A) 0 %; Eosinophils # (A) 0.2 k/uL (0-0.7); Eosinophils % (A) 3 %; HCT 29.9 % (39.0-53.0); HGB 9.6 gm/dL (13.0-17.5); Lymphocytes # (A) 0.8 k/uL (1.0-4.8); Lymphocytes % (A) 12 %; MCH 28.5 pg (25.0-35.0); MCHC 32.3 g/dL (31.0-37.0); MCV 88.2 fL (80.0-100.0); Mean Platelet Volume 6.9; Monocytes # (A) 0.4 k/uL (0-1.0); Monocytes % (A) 7 %; Neutrophils # (A) 4.8 k/uL (1.3-7.7); Neutrophils % (A) 76 %; Platelet Count 259 k/uL (150-450); RBC 3.38 m/uL (4.30-5.90); RDW 15.2 % (11.5-15.5); WBC 6.3 k/uL (3.8-10.6)
[2018-04-15 11:05] LABS: Anion Gap 5 mmol/L; Blood Urea Nitrogen 18 mg/dL (9-20); Calcium 8.6 mg/dL (8.4-10.2); Carbon Dioxide 28 mmol/L (22-30); Chloride 105 mmol/L (98-107); Glucose 105 mg/dL (74-99); Potassium 4.4 mmol/L (3.5-5.1); Sodium 138 mmol/L (137-145)
--- NOTE | 2018-04-15 11:35 | P.PN ---
Subjective Progress Note Date: 04/15/18 Principal diagnosis: Cellulitis/abscess right ring finger Patient is a 52-year-old male seen at bedside this morning. We are following him for cellulitis abscess of the right ring finger. He is also being followed by ID. He's been on IV antibiotics as well as doing soaks. He feels his hand and finger continue to improve. He currently denies fever or chills. He has no new numbness or tingling. He has no other complaints. Objective - Vital Signs Vital signs: Vital Signs Temp 98.5 F 04/15/18 06:24 Pulse 65 04/15/18 06:24 Resp 18 04/15/18 06:24 BP 171/76 04/15/18 06:24 Pulse Ox 97 04/15/18 06:24 Intake & Output 04/14/18 04/15/18 04/15/18 18:59 06:59 18:59 Other: Voiding Method Toilet Toilet # Voids 3 3 - Exam Inspection of the right hand shows improved erythema of the right ring finger with sloughing and mild drainage at the dorsum of the distal finger. There does not appear to be any deep fluid collection or abscess. Neurovascular status is grossly intact with motor and sensation in all digits. Less than 2 second capillary refill is present as well as 2+ radial pulse. There is no ascending erythema. - Constitutional General appearance: Present: no acute distress - Labs CBC & Chem 7: 04/15/18 10:17 04/15/18 10:17 Labs: Abnormal Lab Results - Last 24 Hours (Table) 04/14/18 04/14/18 04/14/18 Range/Units 11:01 11:01 16:38 RBC 3.83 L (4.30-5.90) m/uL Hgb 11.0 L (13.0-17.5) gm/dL Hct 33.7 L (39.0-53.0) % Lymphocytes # (1.0-4.8) k/uL Glucose 108 H (74-99) mg/dL POC Glucose (mg/dL) 103 H (75-99) mg/dL 04/14/18 04/15/18 04/15/18 Range/Units 20:30 01:51 07:19 RBC (4.30-5.90) m/uL Hgb (13.0-17.5) gm/dL Hct (39.0-53.0) % Lymphocytes # (1.0-4.8) k/uL Glucose (74-99) mg/dL POC Glucose (mg/dL) 128 H 107 H 105 H (75-99) mg/dL 04/15/18 04/15/18 Range/Units 10:17 10:17 RBC 3.38 L (4.30-5.90) m/uL Hgb 9.6 L (13.0-17.5) gm/dL Hct 29.9 L (39.0-53.0) % Lymphocytes # 0.8 L (1.0-4.8) k/uL Glucose 105 H (74-99) mg/dL POC Glucose (mg/dL) (75-99) mg/dL Microbiology - Last 24 Hours (Table) 04/11/18 18:17 Blood Culture - Preliminary Blood No Growth after 72 hours Assessment and Plan (1) Cellulitis of right hand Narrative/Plan: He continues to show improvement. It doesn't appear that surgical intervention will be required. Continue IV antibiotics per infectious disease as well as wound care and soaks. We will sign off for now. Will certainly revisit the patient if requested. Thank you Current Visit: Yes Status: Acute Priority: Medium Code(s): L03.113 - CELLULITIS OF RIGHT UPPER LIMB SNOMED Code(s): 36714002 Time with Patient: Less than 30
[2018-04-15 12:12] LABS: Glucose,Whole Blood 98 mg/dL (75-99)
--- NOTE | 2018-04-15 12:48 | P.PN ---
Subjective Patient resting in bed noted improvement to right hand continues to complain of back pain patient hypertensive 171/[address] Mota. Orthopedics is signed off awaiting plan for discharge with infectious disease Objective - Vital Signs Vital signs: Vital Signs Temp 98.5 F 04/15/18 06:24 Pulse 65 04/15/18 06:24 Resp 18 04/15/18 06:24 BP 171/76 04/15/18 06:24 Pulse Ox 97 04/15/18 06:24 Intake & Output 04/14/18 04/15/18 04/15/18 18:59 06:59 18:59 Other: Voiding Method Toilet Toilet # Voids 3 3 - Constitutional General appearance: Present: mild distress - EENT Eyes: Present: PERRLA Ears: bilateral: normal - Respiratory Respiratory: bilateral: CTA - Cardiovascular Rhythm: regular - Gastrointestinal General gastrointestinal: Present: soft - Integumentary Integumentary Comment(s): 1.5 cm skin sloughing to right hand erythema improved Integumentary: Present: normal - Neurologic Neurologic: Present: CNII-XII intact - Musculoskeletal Musculoskeletal: Present: generalized weakness - Psychiatric Psychiatric: Present: A&O x's 3, appropriate affect, intact judgment & insight - Labs CBC & Chem 7: 04/15/18 10:17 04/15/18 10:17 Labs: Abnormal Lab Results - Last 24 Hours (Table) 04/14/18 04/14/18 04/15/18 Range/Units 16:38 20:30 01:51 RBC (4.30-5.90) m/uL Hgb (13.0-17.5) gm/dL Hct (39.0-53.0) % Lymphocytes # (1.0-4.8) k/uL Glucose (74-99) mg/dL POC Glucose (mg/dL) 103 H 128 H 107 H (75-99) mg/dL 04/15/18 04/15/18 04/15/18 Range/Units 07:19 10:17 10:17 RBC 3.38 L (4.30-5.90) m/uL Hgb 9.6 L (13.0-17.5) gm/dL Hct 29.9 L (39.0-53.0) % Lymphocytes # 0.8 L (1.0-4.8) k/uL Glucose 105 H (74-99) mg/dL POC Glucose (mg/dL) 105 H (75-99) mg/dL Microbiology - Last 24 Hours (Table) 04/11/18 18:17 Blood Culture - Preliminary Blood No Growth after 72 hours Assessment and Plan Plan: Assessment Acute cellulitis right hand post I&D Diabetes type 2 Hypertension Chronic back pain degenerative joint disease Plan Awaiting discharge instructions from infectious disease
[2018-04-15] MEDS: VANCOMYCIN 1,500 MG in SODIUM CHLORIDE 0.9% 250 ML IVPB SCH (15:08)
[2018-04-15 15:33] LABS: C-ANCA <1:20 Titer (<1:20); P-ANCA <1:20 Titer (<1:20)
[2018-04-15 17:05] LABS: Glucose,Whole Blood 136 mg/dL (75-99)
[2018-04-15 20:38] LABS: Glucose,Whole Blood 103 mg/dL (75-99)
[2018-04-16] MEDS: HYDROmorphone 1 MG/ML 1 ML SYRINGE IVP PRN ×3 (00:14→09:54)
[2018-04-16] MEDS: ceFAZolin IN SWFI 2 GM/20 ML SYRINGE IVP SCH ×2 (04:14→11:53)
[2018-04-16] MEDS: VANCOMYCIN 1,500 MG in SODIUM CHLORIDE 0.9% 250 ML IVPB SCH (06:00)
[2018-04-16 07:48] LABS: Glucose,Whole Blood 85 mg/dL (75-99)
[2018-04-16] MEDS: INSULIN ASPART 100 UNIT/ML 1 ML 10 ML VIAL SQ SCH ×2 (07:52→13:30)
[2018-04-16 08:08] VITALS: BP 159/76; PULSE 83; TEMP 97.9
[2018-04-16] MEDS: PANTOPRAZOLE 40 MG TABLET PO SCH (08:21)
[2018-04-16] MEDS: HEPARIN SODIUM,PORCINE 5,000 UNIT/ML 1 ML VIAL SQ SCH (08:22)
[2018-04-16] MEDS: LISINOPRIL-HCTZ 20-12.5 MG 1 EACH TAB PO SCH (08:22)
[2018-04-16] MEDS: IBUPROFEN 400 MG TAB PO SCH (08:45)
[2018-04-16] MEDS: HYDROMORPHONE HCL 16 MG PO SCH (08:47)
[2018-04-16 09:51] LABS: Anion Gap 7 mmol/L; Blood Urea Nitrogen 18 mg/dL (9-20); Calcium 8.6 mg/dL (8.4-10.2); Carbon Dioxide 28 mmol/L (22-30); Chloride 106 mmol/L (98-107); Glucose 150 mg/dL (74-99); Potassium 4.6 mmol/L (3.5-5.1); Sodium 141 mmol/L (137-145)
[2018-04-16] MEDS: SODIUM CHLORIDE 0.9% 1,000 ML IV SCH (09:58)
[2018-04-16 10:32] LABS: Basophils % (A) 1 %; Eosinophils # (A) 0.3 k/uL (0-0.7); Eosinophils % (A) 3 %; HCT 31.8 % (39.0-53.0); HGB 10.2 gm/dL (13.0-17.5); Lymphocytes # (A) 0.9 k/uL (1.0-4.8); Lymphocytes % (A) 12 %; MCH 28.1 pg (25.0-35.0); Mean Platelet Volume 8.3; Monocytes # (A) 0.7 k/uL (0-1.0); Monocytes % (A) 9 %; Neutrophils # (A) 5.8 k/uL (1.3-7.7); Neutrophils % (A) 74 %; Platelet Count 282 k/uL (150-450); RBC 3.61 m/uL (4.30-5.90); RDW 14.9 % (11.5-15.5); WBC 7.8 k/uL (3.8-10.6)
--- NOTE | 2018-04-16 11:45 | P.PN ---
Subjective Patient improving awaiting discharge plan with infectious disease Objective - Vital Signs Vital signs: Vital Signs Temp 97.9 F 04/16/18 07:25 Pulse 83 04/16/18 07:25 Resp 18 04/16/18 08:00 BP 159/76 04/16/18 07:25 Pulse Ox 95 04/16/18 07:25 Intake & Output 04/15/18 04/16/18 04/16/18 18:59 06:59 18:59 Intake Total 250 Balance 250 Intake: Intake, IV Titration 250 Amount Vancomycin 1,500 mg In 250 Sodium Chloride 0.9% 250 ml @ 125 mls/hr IVPB Q16H JOHANNA Rx#:[id number] Other: Voiding Method Toilet # Voids 3 3 - Constitutional General appearance: Present: mild distress - EENT Eyes: Present: PERRLA Ears: bilateral: normal - Neck Neck: Present: normal ROM - Respiratory Respiratory: bilateral: CTA - Cardiovascular Rhythm: regular - Gastrointestinal General gastrointestinal: Present: soft - Integumentary Integumentary Comment(s): Improving erythema to right hand Integumentary: Present: normal - Neurologic Neurologic: Present: CNII-XII intact - Psychiatric Psychiatric: Present: A&O x's 3, appropriate affect, intact judgment & insight - Labs CBC & Chem 7: 04/16/18 08:57 04/16/18 08:57 Labs: Abnormal Lab Results - Last 24 Hours (Table) 04/15/18 04/15/18 04/16/18 Range/Units 17:02 20:37 08:57 RBC 3.61 L (4.30-5.90) m/uL Hgb 10.2 L (13.0-17.5) gm/dL Hct 31.8 L (39.0-53.0) % Lymphocytes # 0.9 L (1.0-4.8) k/uL Glucose (74-99) mg/dL POC Glucose (mg/dL) 136 H 103 H (75-99) mg/dL 04/16/18 Range/Units 08:57 RBC (4.30-5.90) m/uL Hgb (13.0-17.5) gm/dL Hct (39.0-53.0) % Lymphocytes # (1.0-4.8) k/uL Glucose 150 H (74-99) mg/dL POC Glucose (mg/dL) (75-99) mg/dL Microbiology - Last 24 Hours (Table) 04/11/18 18:17 Blood Culture - Preliminary Blood No Growth after 96 hours 04/12/18 12:11 Gram Stain - Preliminary Hand - Right Wound Culture - Preliminary Alpha Hemolytic Streptococcus Assessment and Plan Plan: Assessment Cellulitis right hand fourth digit post I&D Diabetes type 2 Hypertension Chronic back pain degenerative joint disease Plan Orthopedics is signed off Awaiting discharge plan from infectious disease Hopeful discharge soon
[2018-04-16 12:26] LABS: Glucose,Whole Blood 144 mg/dL (75-99)
--- NOTE | 2018-04-16 14:45 | P.DS ---
Providers Date of admission: 04/14/18 13:58 Expected date of discharge: 04/16/18 Attending physician: Rosendo Mota Consults: 04/11/18 19:40 Consult Physician Stat Consulting Provider: Mello Jackson Consult Reason/Comments: R hand cellulitis Do you want consulting provider notified?: Yes 04/12/18 12:19 Consult Physician Routine Consulting Provider: Mario Alberto Emery Consult Reason/Comments: Right hand cellulitis Do you want consulting provider notified?: Yes Primary care physician: Rosendo Mota Hospital Course: 52-year-old male of was admitted for cellulitis of the right hand. Patient had a ID by orthopedics patient was treated with IV vancomycin. Patient consultation with infectious disease and orthopedics. Orthopedics signed off the case. Patient left against medical advice. Noted order for Duracell 500 mg b.i.d. from infectious disease. Assessment right had cellulitis positive of alpha hemolytic strep culture history of diabetes type II hypertension history of chronic back pain degenerative joint disease Plan follow up with the family physician Dr. Rosendo Mota. Follow up with orthopedics Patient Condition at Discharge: Fair Plan - Discharge Summary New Discharge Prescriptions: New Cefadroxil [Duricef] 500 mg PO Q12HR #20 cap No Action Prochlorperazine [Compazine] 10 mg PO TID PRN PRN Reason: Nausea And Vomiting LORazepam [Ativan] 1 mg PO BID Furosemide [Lasix] 20 mg PO Q6HR PRN PRN Reason: WATER RETENTION tiZANidine [Zanaflex] 4 mg PO QID PRN PRN Reason: Spasms HYDROmorphone [Dilaudid] 1 - 2 tab PO BID HYDROmorphone HCL [Exalgo] 48 mg PO BID Cyclobenzaprine [Flexeril] 10 mg PO Q6HR PRN PRN Reason: Spasms Exenatide Microspheres [Bydureon Pen] 2 mg SQ MARKS Lisinopril-Hctz 20-12.5 mg [Zestoretic 20-12.5] 1 tab PO DAILY Ibuprofen [Motrin Ib] 400 mg PO TID Discharge Medication List Cyclobenzaprine [Flexeril] 10 mg PO Q6HR PRN 04/11/18 [History] Exenatide Microspheres [Bydureon Pen] 2 mg SQ MARKS 04/11/18 [History] Furosemide [Lasix] 20 mg PO Q6HR PRN 04/11/18 [History] HYDROmorphone HCL [Exalgo] 48 mg PO BID 04/11/18 [History] HYDROmorphone [Dilaudid] 1 - 2 tab PO BID 04/11/18 [History] Ibuprofen [Motrin Ib] 400 mg PO TID 04/11/18 [History] LORazepam [Ativan] 1 mg PO BID 04/11/18 [History] Lisinopril-Hctz 20-12.5 mg [Zestoretic 20-12.5] 1 tab PO DAILY 04/11/18 [History ] Prochlorperazine [Compazine] 10 mg PO TID PRN 04/11/18 [History] tiZANidine [Zanaflex] 4 mg PO QID PRN 04/11/18 [History] Cefadroxil [Duricef] 500 mg PO Q12HR #20 cap 04/16/18 [Rx] Follow up Appointment(s)/Referral(s): Rosendo Mota MD [Primary Care Provider] - 1-2 days Mario Alberto Emery MD [STAFF PHYSICIAN] - 1 Week Mello Jackson MD [STAFF PHYSICIAN] - As Needed Patient Instructions/Handouts: Cellulitis (DC) Activity/Diet/Wound Care/Special Instructions: PT WENT AMA Patient advised to follow-up with primary care physician. Return to emergency department if any alarming signs or symptoms occur. Discharge Disposition: Left Against Medical Advice
[2018-04-17] MEDS ORDERED: VANCOMYCIN TROUGH DUE 1 EACH MISC MISCELLANE ONE (13:00)
== END 2018-04-16 13:55 | disposition left against medical advice (07) | DRG 603 ==
LOC: EC 16:43 → 4MS4W 21:12 → OBSVTOIN 04-14 13:58
PROVIDERS: ADMIT Family Medicine; ATTEND Family Medicine
DX: L03.113 Cellulitis of right upper limb (principal); L02.511 Cutaneous abscess of right hand; E11.9 Type 2 diabetes mellitus without complications; I10 Essential (primary) hypertension; G89.29 Other chronic pain; B95.4 Other streptococcus as the cause of diseases classified elsewhere; R29.6 Repeated falls; W01.0XXA Fall on same level from slipping, tripping and stumbling without subsequent striking against object, initial encounter; Z79.899 Other long term (current) drug therapy; Z88.8 Allergy status to other drugs, medicaments and biological substances; Z87.01 Personal history of pneumonia (recurrent); Y92.002 Bathroom of unspecified non-institutional (private) residence as the place of occurrence of the external cause
CPT/HCPCS: 36415; 71045; 80048; 80202; 82565; 83036; 84443; 85025; 85652; 86038; 86140; 86255; 87040; 87070; 87077; 87186; 87205; 93880; 96365; 96366; 96375; 99285

== ENCOUNTER 2018-05-11 14:23 | Emergency (ER) | payer BC, MEDICARE ==
[2018-05-11 14:30] VITALS: RESP 20
[2018-05-11] MEDS ORDERED: HYDROmorphone 0.5 MG/0.5 ML SYRINGE IM STA ×2 (14:34→15:50)
[2018-05-11] MEDS ORDERED: HYDROmorphone 1 MG/ML 1 ML SYRINGE IM STA (15:51)
--- NOTE | 2018-05-11 16:17 | XR ---
EXAMINATION TYPE: XR ankle complete LT DATE OF EXAM: 05/11/2018 COMPARISON: 05/09/2018 HISTORY: Ankle pain TECHNIQUE: 3 views FINDINGS: There is small plantar calcaneal spur. Ankle mortise is anatomic. I see no fracture. IMPRESSION: Calcaneal spurring. No fracture. No change. This patient has a fracture of the proximal f irst metatarsal demonstrated on the old exam that is not well evaluated on this exam.
--- NOTE | 2018-05-11 16:18 | XR ---
EXAMINATION TYPE: XR knee complete LT DATE OF EXAM: 05/11/2018 COMPARISON: NONE HISTORY: Pain TECHNIQUE: 3 views FINDINGS: There is meniscal calcification. There is small knee joint effusion. I see no fracture nor dislocation. IMPRESSION: Chondrocalcinosis. No fracture seen. Small joint effusion.
--- NOTE | 2018-05-11 16:18 | ED ---
Lower Extremity Injury HPI - General Chief Complaint: Extremity Injury, Lower Stated Complaint: Ankle Injury Time Seen by Provider: 05/11/18 14:26 Source: patient Mode of arrival: ambulatory Limitations: no limitations - History of Present Illness Initial Comments: 52-year-old male past history of diabetes and hypertension presenting today for chief complaint of left foot pain. Patient states that Mark evening he twisted his foot by miss stepping. He often states his difficulty fully lifting leg secondary to chronic low back issues. Patient states he misstepped twisting his left foot, noticing immediate pain and inability to weight-bear or ambulate. Patient called who presented to the [facility] for evaluation. X-rays obtained that time of the foot and ankle revealed normal ankle imaging however multiple metatarsal fractures of the left foot including first metatarsal fracture with 10 mm of displacement. At that time they stated an on-call orthopedics pediatric physician was counseled to who recommended discharge with splint and orthopedic surgery follow-up. Patient since has had increasing swelling and pain. Patient states he is unable to tolerate the pain and was told to present to the emergency department after speaking with on-call physician dental assistant medical assistant [facility]. Shea Washington. Patient presents via EMS, appearing uncomfortable. IV access was unable to be obtained in the emergency vehicle. Patient was given 100 mcg of fentanyl intranasally. She states this did not help improve pain. Remainder of ROS negative, patient denies any recent fever, chills, shortness of breath, chest pain, back pain, abdominal pain, nausea or vomiting, numbness or tingling, dysuria or hematuria, constipation or diarrhea, headaches or visual changes, or any other complaints. BP mildly elevated. - Related Data Home Medications Medication Instructions Recorded Confirmed Cyclobenzaprine [Flexeril] 10 mg PO Q6HR PRN 04/11/18 04/11/18 Exenatide Microspheres [Bydureon 2 mg SQ MARKS 04/11/18 04/11/18 Pen] Furosemide [Lasix] 20 mg PO Q6HR PRN 04/11/18 04/11/18 HYDROmorphone HCL [Exalgo] 48 mg PO BID 04/11/18 04/11/18 HYDROmorphone [Dilaudid] 1 - 2 tab PO BID 04/11/18 04/11/18 Ibuprofen [Motrin Ib] 400 mg PO TID 04/11/18 04/11/18 LORazepam [Ativan] 1 mg PO BID 04/11/18 04/11/18 Lisinopril-Hctz 20-12.5 mg 1 tab PO DAILY 04/11/18 04/11/18 [Zestoretic 20-12.5] Prochlorperazine [Compazine] 10 mg PO TID PRN 04/11/18 04/11/18 tiZANidine [Zanaflex] 4 mg PO QID PRN 04/11/18 04/11/18 Previous Rx's Medication Instructions Recorded Cefadroxil [Duricef] 500 mg PO Q12HR #20 cap 04/16/18 Allergies Allergy/AdvReac Type Severity Reaction Status Date / Time prednisone Allergy Rash/Hives Verified 05/11/18 14:30 Review of Systems ROS Statement: Those systems with pertinent positive or pertinent negative responses have been documented in the HPI. ROS Other: All systems not noted in ROS Statement are negative. Constitutional: Denies: fever, chills, night sweats ENT: Denies: ear pain, throat pain Respiratory: Denies: cough, dyspnea, wheezes, hemoptysis, stridor Cardiovascular: Denies: chest pain, palpitations Endocrine: Denies: fatigue Gastrointestinal: Denies: abdominal pain, nausea, vomiting, diarrhea, constipation Genitourinary: Denies: urgency, dysuria Musculoskeletal: Reports: joint swelling, arthralgia Skin: Denies: rash, lesions Neurological: Denies: headache, weakness Past Medical History Past Medical History: Diabetes Mellitus, Hypertension, Pneumonia Additional Past Medical History / Comment(s): Chronic back pain History of Any Multi-Drug Resistant Organisms: None Reported Past Surgical History: Back Surgery, Orthopedic Surgery Additional Past Surgical History / Comment(s): Right knee, right shoulder, multiple back surgeries with hardware. Past Psychological History: No Psychological Hx Reported Smoking Status: Never smoker Past Alcohol Use History: None Reported Past Drug Use History: None Reported General Exam - General Exam Comments Initial Comments: General: The patient is awake and alert, in no distress, and does not appear acutely ill. Eye: Pupils are equal, round and reactive to light, extra-ocular movements are intact. No nystagmus. There is normal conjunctiva bilaterally. No signs of icterus. Ears, nose, mouth and throat: There are moist mucous membranes and no oral lesions. Neck: The neck is supple, there is no tenderness or JVD. Cardiovascular: There is a regular rate and rhythm. No murmur, rub or gallop is appreciated. Respiratory: Lungs are clear to auscultation, respirations are non-labored, breath sounds are equal. No wheezes, stridor, rales, or rhonchi. Gastrointestinal: Soft, non-distended, non-tender abdomen without masses or organomegaly noted. There is no rebound or guarding present. No CVA tenderness. Bowel sounds are unremarkable. Musculoskeletal: Upon inspection of the left foot after removing splint. There is significant edema as well as ecchymosis near the base of the first and second MTP joints. Patient has pressured blister that is tense at the base of the first and second digit that spans about 6 cm. Patient is diffusely tender palpation of the foot. With our compressible. Capillary refill 2 seconds of the first digit, remaining digits less than 2 seconds. Patient is able to move all 5 digits of the left foot. Sensation intact. DP pulses equal bilaterally 2+ . Neurological: A&O x 3. CN II-XII intact, There are no obvious motor or sensory deficits. Coordination appears grossly intact. Speech is normal. Skin: Skin is warm and dry and no rashes or lesions are noted. Scar near right sikhism noted. Psychiatric: Cooperative, appropriate mood & affect, normal judgment. Limitations: no limitations Course Vital Signs 05/11/18 05/11/18 05/11/18 14:26 15:50 16:36 Pulse Rate 91 88 95 Respiratory 20 20 20 Rate Blood Pressure 163/89 154/84 149/91 O2 Sat by Pulse 93 L 94 L 95 Oximetry - Reevaluation(s) Reevaluation #1: Phone conversation with physician dental assistant medical assistant Mal [facility]. He reviewed all imaging of patient's- all, he recommended consulting [facility] foot and ankle specialist Dr. Marie or transfer to [facility] 05/11/18 16:00 Reevaluation #2: Spoke with Shea Washington at 16:13 about case, she reviewed imaging recommended transfer to [facility] with orthopedic trauma team. Pending return phone call from [facility] orthopedics. 05/11/18 16:18 Medical Decision Making - Medical Decision Making Pt neurovascularly intact, Significant edema on exam. Compartment are compressible. Imaging repeated, revealing multiple metarasal fractures with 1 metatarsal experiencing 10mm of displacement. Contacted orthopedic employment instructional associate physician dental assistant medical assistant , Mal Stockton who reviewed all imagining, stating to call employment instructional associate foot and ankle specialist, or transfer to ortho trauma at [facility]. No further instruction. I called Shea Mendoza PA-C at [facility] stating no employment instructional associate foot and ankle specialist and would recommend transfer after reviewing patient images. No IV access was obtainable during duration of stay after multiple attempts. Pt given IM analgesics. I contacted Dr. Pelaez at [facility] who accepted admission for orthopedics, he recommended loosely wrapping foot to stabilize prior to transfer. Pt and pt agreeable with transfer. Pt stable. EMS contacted, pt transferred at in stable condition. Disposition Clinical Impression: Multiple closed fractures of metatarsal bone of left foot Disposition: OTHER INSTITUTION NOT DEFINED Condition: Stable Is patient prescribed a controlled substance at d/c from ED?: No Referrals: Rosendo Mota MD [Primary Care Provider] - 1-2 days Time of Disposition: 17:56 - Out of Hospital Transfer - Req. Specs Out of Hospital Transfer - Requested Specifics: Other Emergency Center ([facility]-accepted by Latanya (orthopedics))
--- NOTE | 2018-05-11 16:19 | XR ---
EXAMINATION TYPE: XR foot complete LT DATE OF EXAM: 05/11/2018 COMPARISON: 05/09/2018 HISTORY: Pain TECHNIQUE: 3 views FINDINGS: There is comminuted fracture of the base of the first metatarsal. There is displacement of fragments up to 1 cm. There are fractures of the head of the distal second third and fourth metatarsa ls. IMPRESSION: Multiple fractures without significant change in position compared to last exam. Soft tis rayo swelling.
[2018-05-11 16:36] VITALS: BP 149/91; PULSE 95
== END 2018-05-11 17:42 | disposition other institution (70) ==
LOC: EC 14:23
DX: S92.312A Displaced fracture of first metatarsal bone, left foot, initial encounter for closed fracture (principal); S92.322A Displaced fracture of second metatarsal bone, left foot, initial encounter for closed fracture; S92.332A Displaced fracture of third metatarsal bone, left foot, initial encounter for closed fracture; S92.342A Displaced fracture of fourth metatarsal bone, left foot, initial encounter for closed fracture; E11.9 Type 2 diabetes mellitus without complications; I10 Essential (primary) hypertension; Z79.899 Other long term (current) drug therapy; Z88.8 Allergy status to other drugs, medicaments and biological substances; X50.1XXA Overexertion from prolonged static or awkward postures, initial encounter
CPT/HCPCS: 99284; 96372 ×2; 73562; 73610; 73630; J1170 ×2

== ENCOUNTER 2019-01-17 09:47 | Emergency (ER) | payer BC, MEDICARE ==
[2019-01-17 09:51] VITALS: TEMP 98.1
--- NOTE | 2019-01-17 09:59 | ED ---
Upper Extremity HPI - General Chief Complaint: Extremity Injury, Upper Stated Complaint: Fell/shoulder injury Time Seen by Provider: 01/17/19 09:54 Source: patient, RN notes reviewed Mode of arrival: wheelchair Limitations: physical limitation - History of Present Illness Initial Comments: This a 53-year-old male presents emergency Department with chief complaint of right shoulder pain. Patient states today he tripped and fell around 4 AM this morning. He denies any head injury no loss conscious. Patient complains of severe right shoulder pain. Patient has had prior surgery 30 years ago on it and states that he's had limited range of motion for a while now. Patient denies any paresthesias. Patient denies any pain in his elbow or any other extremity injuries at this time. - Related Data Home Medications Medication Instructions Recorded Confirmed Cyclobenzaprine [Flexeril] 10 mg PO Q6HR PRN 04/11/18 04/11/18 Exenatide Microspheres [Bydureon 2 mg SQ MARKS 04/11/18 04/11/18 Pen] Furosemide [Lasix] 20 mg PO Q6HR PRN 04/11/18 04/11/18 HYDROmorphone HCL [Exalgo] 48 mg PO BID 04/11/18 04/11/18 HYDROmorphone [Dilaudid] 1 - 2 tab PO BID 04/11/18 04/11/18 Ibuprofen [Motrin Ib] 400 mg PO TID 04/11/18 04/11/18 LORazepam [Ativan] 1 mg PO BID 04/11/18 04/11/18 Lisinopril-Hctz 20-12.5 mg 1 tab PO DAILY 04/11/18 04/11/18 [Zestoretic 20-12.5] Prochlorperazine [Compazine] 10 mg PO TID PRN 04/11/18 04/11/18 tiZANidine [Zanaflex] 4 mg PO QID PRN 04/11/18 04/11/18 Previous Rx's Medication Instructions Recorded Cefadroxil [Duricef] 500 mg PO Q12HR #20 cap 04/16/18 Allergies Allergy/AdvReac Type Severity Reaction Status Date / Time prednisone Allergy Rash/Hives Verified 05/11/18 14:30 Review of Systems ROS Statement: Those systems with pertinent positive or pertinent negative responses have been documented in the HPI. ROS Other: All systems not noted in ROS Statement are negative. Past Medical History Past Medical History: Diabetes Mellitus, Hypertension, Pneumonia Additional Past Medical History / Comment(s): Chronic back pain History of Any Multi-Drug Resistant Organisms: None Reported Past Surgical History: Back Surgery, Orthopedic Surgery Additional Past Surgical History / Comment(s): Right knee, right shoulder, multiple back surgeries with hardware. Past Psychological History: No Psychological Hx Reported Smoking Status: Never smoker Past Alcohol Use History: None Reported Past Drug Use History: None Reported General Exam Limitations: physical limitation General appearance: alert, in no apparent distress Head exam: Present: atraumatic, normocephalic, normal inspection Neck exam: Present: normal inspection, full ROM. Absent: tenderness, meningismus, lymphadenopathy Respiratory exam: Present: normal lung sounds bilaterally. Absent: respiratory distress, wheezes, rales, rhonchi, stridor, chest wall tenderness Cardiovascular Exam: Present: regular rate, normal rhythm, normal heart sounds. Absent: systolic murmur, diastolic murmur, rubs, gallop, clicks Extremities exam: Present: other (Right shoulder there is tenderness the proximal humeral region, no tenderness of the clavicle no posterior tenderness. Limited range of motion neurovascular intact with equal radial pulses no tenderness of the distal humeral or right forearm) Neurological exam: Present: alert, oriented X3 Course Vital Signs 01/17/19 09:50 Temperature 98.1 F Pulse Rate 90 Respiratory 18 Rate Blood Pressure 104/59 O2 Sat by Pulse 96 Oximetry Medical Decision Making - Medical Decision Making 53-year-old male presented for fall, right shoulder pain. X-rays were obtained which shows no acute finding. Patient will be discharged sling and follow-up with orthopedics. Disposition Clinical Impression: Fall, Sprain of right shoulder Disposition: HOME SELF-CARE Condition: Stable Instructions (If sedation given, give patient instructions): Shoulder Sprain (ED) Additional Instructions: Please return to the Emergency Department if symptoms worsen or any other concerns. Is patient prescribed a controlled substance at d/c from ED?: No Referrals: Rosendo Mota MD [Primary Care Provider] - 1-2 days Omar Davis DO [Medical Doctor] - 1-2 days Time of Disposition: 10:42
--- NOTE | 2019-01-17 10:21 | XR ---
EXAMINATION TYPE: XR shoulder complete RT DATE OF EXAM: 01/17/2019 COMPARISON: NONE HISTORY: Pain TECHNIQUE: Shoulder examined in 3 views FINDINGS: The humeral head articulates with the glenoid. The acromio-clavicular junction is normal. No acute fractures or dislocations are evident. A follow up study can be performed 7-10 days from acute trauma for continued pain. IMPRESSION: 1. No acute osseous abnormality right shoulder.
[2019-01-17 11:07] VITALS: BP 110/65; PULSE 88; RESP 16
== END 2019-01-17 10:56 | disposition home or self-care (01) ==
LOC: EC 09:47
DX: S43.401A Unspecified sprain of right shoulder joint, initial encounter (principal); E11.9 Type 2 diabetes mellitus without complications; I10 Essential (primary) hypertension; G89.29 Other chronic pain; Z88.8 Allergy status to other drugs, medicaments and biological substances; Z79.1 Long term (current) use of non-steroidal anti-inflammatories (NSAID); Z79.84 Long term (current) use of oral hypoglycemic drugs; Z79.891 Long term (current) use of opiate analgesic; Z79.899 Other long term (current) drug therapy; Z98.890 Other specified postprocedural states; W01.0XXA Fall on same level from slipping, tripping and stumbling without subsequent striking against object, initial encounter; Y92.009 Unspecified place in unspecified non-institutional (private) residence as the place of occurrence of the external cause
CPT/HCPCS: 99283

== ENCOUNTER 2022-09-03 09:49 | Emergency (ER) | payer BC, MEDICARE ==
[2022-09-03 10:13] VITALS: TEMP 98
[2022-09-03] MEDS ORDERED: HYDROmorphone 1 MG/ML 1 ML SYRINGE IVP STA ×2 (10:28→12:29)
[2022-09-03] MEDS ORDERED: SODIUM CHLORIDE 0.9% 1,000 ML IV STA (10:28)
--- NOTE | 2022-09-03 10:30 | ED ---
General Adult HPI - General Chief complaint: Weakness Stated complaint: Fall Time Seen by Provider: 09/03/22 10:18 Source: patient, family (spouse), RN notes reviewed Mode of arrival: wheelchair - History of Present Illness Initial comments: Patient is a 57-year-old male presenting to the emergency room with his with concerns of generalized weakness. She reports that he seems to be a little more confused than baseline but overall both the patient and the are poor historians; she reports that she is unsure of his baseline mental status. He has a significant history of chronic back problems with multiple surgeries and is on pain medications at home. She reports that his increase in generalized weakness has been ongoing for approximately 3 days with episodes of diarrhea has well; she states that he did fall out of bed on Saturday afternoon complaining of increased pain to the lower thoracic/lumbar region of his back along with pain to the right shoulder right sacroiliac region and left foot. Range of motion in all joints is poor and limited due to pain but baseline. He denies any other systemic symptoms including any chest pain, shortness of alejandro th, cough, congestion, nausea, vomiting, abdominal pain not related to diarrhea, dysuria, hematuria, fevers or chills. In addition to his back pain history he has a past medical history significant for diabetes and hypertension. - Related Data Home Medications Medication Instructions Recorded Confirmed Cyclobenzaprine [Flexeril] 10 mg PO Q6HR PRN 04/11/18 04/11/18 Exenatide Microspheres [Bydureon 2 mg SQ MARKS 04/11/18 04/11/18 Pen] Furosemide [Lasix] 20 mg PO Q6HR PRN 04/11/18 04/11/18 HYDROmorphone HCL [Exalgo] 48 mg PO BID 04/11/18 04/11/18 HYDROmorphone [Dilaudid] 1 - 2 tab PO BID 04/11/18 04/11/18 Ibuprofen [Motrin Ib] 400 mg PO TID 04/11/18 04/11/18 LORazepam [Ativan] 1 mg PO BID 04/11/18 04/11/18 Lisinopril-Hctz 20-12.5 mg 1 tab PO DAILY 04/11/18 04/11/18 [Zestoretic 20-12.5] Prochlorperazine [Compazine] 10 mg PO TID PRN 04/11/18 04/11/18 tiZANidine [Zanaflex] 4 mg PO QID PRN 04/11/18 04/11/18 Previous Rx's Medication Instructions Recorded cefaDROXiL [Duricef] 500 mg PO Q12HR #20 cap 04/16/18 Allergies Allergy/AdvReac Type Severity Reaction Status Date / Time prednisone Allergy Rash/Hives Verified 09/03/22 10:13 Review of Systems ROS Statement: Those systems with pertinent positive or pertinent negative responses have been documented in the HPI. ROS Other: All systems not noted in ROS Statement are negative. Past Medical History Past Medical History: Diabetes Mellitus, Hypertension, Pneumonia Additional Past Medical History / Comment(s): Chronic back pain History of Any Multi-Drug Resistant Organisms: None Reported Past Surgical History: Back Surgery, Orthopedic Surgery Additional Past Surgical History / Comment(s): Right knee, right shoulder, multiple back surgeries with hardware. Past Psychological History: No Psychological Hx Reported Past Alcohol Use History: None Reported Past Drug Use History: None Reported General Exam - General Exam Comments Initial Comments: GENERAL: No acute distress, well developed, well nourished. Appears fatigued and older than stated age HEENT: Normocephalic, atraumatic. Pupils equal, round, reactive to light. Moist mucous membranes. LUNGS: No respiratory distress. Clear to auscultation, no adventitious sounds, no use of accessory muscles. HEART: Regular rate and rhythm without murmur, rub, or gallop. ABDOMEN: Normal bowel sounds. Soft, non-tender, non-distended. BACK: Postsurgical changes noted. Tenderness from the lower thoracic vertebrae to mid lumbar vertebrae without any obvious deformity. Right hip stage III iliac region tenderness without obvious deformity. EXTREMITIES: No edema. Poor range of motion to all extremities reporting pain in all extremities including worse pain to right shoulder and left foot. NEUROLOGIC: Alert & oriented x 3 but slow responses and poor historian. CN II- XII grossly intact. PSYCHIATRIC: Flat affect and behavior. DERMATOLOGIC: Skin intact, without rashes or lesions noted. Course Vital Signs 09/03/22 09/03/22 10:10 13:46 Temperature 98.0 F Pulse Rate 69 64 Respiratory 18 16 Rate Blood Pressure 118/65 134/70 O2 Sat by Pulse 97 Oximetry Medical Decision Making - Medical Decision Making Was pt. sent in by a medical professional or institution (, PA, ORTHOTIST OR PROSTHETIST, urgent care, hospital, or alf...) When possible be specific @ -No Did you speak to anyone other than the patient for history (EMS, parent, family, police, friend...)? What history was obtained from this source @ -Yes, spoke with who is at bedside to obtain HPI and history information; and patient are both poor historians. Did you review nursing and triage notes (agree or disagree)? Why? @ -I reviewed and agree with nursing and triage notes Were old charts reviewed (outside hosp., previous admission, EMS record, old EKG, old radiological studies, urgent care reports/EKG's, alf records)? Report findings @ -No old charts were reviewed Differential Diagnosis (chest pain, altered mental status, abdominal pain women, abdominal pain men, vaginal bleeding, weakness, fever, dyspnea, syncope, headache, dizziness, GI bleed, back pain, seizure, CVA, palpatations, mental health, musculoskeletal)? @ -Differential Weakness: Hypoglycemia, shock, sepsis, hyponatremia, anemia, infection, [place], ETOH, adverse medicine reaction, overdose, stroke, this is not meant to be an all-inclusive list. EKG interpreted by me (3pts min.). @ -Sinus bradycardia, ventricular rate 57 bpm, MO interval 150 ms, QRS duration 105 ms, QT/QTC 463/458 ms, PRT axes 58, 47, 13 X-rays interpreted by me (1pt min.). @ -Chest x-ray: No focal consolidation, effusion or pneumothorax Thoracic spine x-ray: Postsurgical changes, no acute fracture or subluxation Lumbar spine x-ray: Postsurgical changes, no acute fracture or subluxation. Left foot x-ray: No fracture or subluxation. Healed previous fractures noted. Right shoulder x-ray:. No fracture or dislocation. Joint spaces well maintained. X-ray right hip and pelvis: No fracture or dislocation. Joint spaces well maintained. CT interpreted by me (1pt min.). @ -CT cervical spine: Chronic degenerative disc disease no acute fracture or subluxation. U/S interpreted by me (1pt. min.). @ -None done What testing was considered but not performed or refused? (CT, X-rays, U/S, labs)? Why? @ -None What meds were considered but not given or refused? Why? @ -None Did you discuss the management of the patient with other professionals (professionals i.e. , PA, ORTHOTIST OR PROSTHETIST, lab, RT, psych nurse, social sciences research scientist, field technical support consultant, teacher, admissions officer, special education case manager)? Give summary @ -No Was smoking cessation discussed for >3mins.? @ -No Was critical care preformed (if so, how long)? @ -No Were there social determinants of health that impacted care today? How? (Homelessness, low income, unemployed, alcoholism, drug addiction, transportation, low edu. Level, literacy, decrease access to med. care, half-way, rehab)? @ -No Was there de-escalation of care discussed even if they declined (Discuss DNR or withdrawal of care, Hospice)? DNR status @ -No What co-morbidities impacted this encounter? (DM, HTN, Smoking, COPD, CAD, Cancer, CVA, ARF, Chemo, Hep., AIDS, mental health diagnosis, sleep apnea, morbid obesity)? @ -None Was patient admitted / discharged? Hospital course, mention meds given and route, prescriptions, significant lab abnormalities, going to OR and other pertinent info. @ -57-year-old male presenting to the emergency room with 3 days of diarrhea along with worsening generalized weakness and pain to back, left foot, right hip, and right shoulder. No other systemic symptoms. Will start workup for weakness along with fall with pain. Will obtain x-rays of thoracic spine, lumbar spine along with left foot, right hip/pelvis and right shoulder. Due to weakness will obtain chest x-ray, EKG, CBC, CMP, magnesium, phosphorus, TSH, lactic acid, urinalysis and viral swabbing for Covid, influenza and RSV. CBC shows anemia with hemoglobin 11.0 hematocrit 34.1, white count normal, lymphocytes low 0.8, coags stable, CMP demonstrates dehydration BUN 27 creatinin e normal. Glucose slightly elevated 116 electrolytes normal. Liver enzymes normal, protein level low 5.7 lactic acid normal 0.8 TSH low 0.438 reflex free T4 added and normal 1.27. Urinalysis normal, viral swabbing for Covid, RSV and influenza are negative. No indication for further diagnostic imaging or laboratory studies. 1 L of IV fluids given for dehydration and tolerated well. Dilaudid IV given 2 to help control pain better. Patient established with pain management. Above findings discussed with patient and spouse at length. Questions and concerns answered. 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 Fall precautions encouraged. Return parameters to the emergency room discussed. Will discharge home in stable condition maintaining fall precautions to prevent falls and good hydration to help with weakness advising follow-up with pain management and primary care provider. Undiagnosed new problem with uncertain prognosis? @ -No Drug Therapy requiring intensive monitoring for toxicity (Heparin, Nitro, Insulin, Cardizem)? @ -No Were any procedures done? @ -No Diagnosis/symptom? @ -Fall Acute, or Chronic, or Acute on Chronic? @ -Acute Uncomplicated (without systemic symptoms) or Complicated (systemic symptoms)? @ -Uncomplicated Side effects of treatment? @ -No Exacerbation, Progression, or Severe Exacerbation? @ -No Poses a threat to life or bodily function? How? (Chest pain, [place], [place], pneumonia, PE, COPD, DKA, ARF, appy, cholecystitis, CVA, Diverticulitis, Homicidal, Suicidal, threat to staff... and all critical care pts) @ -No Diagnosis/symptom? @ -Dehydration Acute, or Chronic, or Acute on Chronic? @ -Acute Uncomplicated (without systemic symptoms) or Complicated (systemic symptoms)? @ -Uncomplicated Side effects of treatment? @ -none Exacerbation, Progression, or Severe Exacerbation] @ -no Poses a threat to life or bodily function? @ -no Diagnosis/symptom? @ -Generalized weakness Acute, or Chronic, or Acute on Chronic? @ -Acute Uncomplicated (without systemic symptoms) or Complicated (systemic symptoms)? @ -Uncomplicated Side effects of treatment? @ -none Exacerbation, Progression, or Severe Exacerbation] @ -no Poses a threat to life or bodily function? @ -no Case discussed with Dr. Barlow. - Lab Data Result diagrams: 09/03/22 10:50 09/03/22 10:50 Lab Results 09/03/22 09/03/22 09/03/22 Range/Units 10:50 10:50 10:50 WBC 6.5 (3.8-10.6) k/uL RBC 3.64 L (4.30-5.90) m/uL Hgb 11.0 L (13.0-17.5) gm/dL Hct 34.1 L (39.0-53.0) % MCV 93.6 (80.0-100.0) fL MCH 30.3 (25.0-35.0) pg MCHC 32.3 (31.0-37.0) g/dL RDW 14.9 (11.5-15.5) % Plt Count 225 (150-450) k/uL MPV 8.3 Neutrophils % 76 % Lymphocytes % 12 % Monocytes % 8 % Eosinophils % 2 % Basophils % 0 % Neutrophils # 4.9 (1.3-7.7) k/uL Lymphocytes # 0.8 L (1.0-4.8) k/uL Monocytes # 0.5 (0-1.0) k/uL Eosinophils # 0.1 (0-0.7) k/uL Basophils # 0.0 (0-0.2) k/uL PT 11.2 (9.0-12.0) sec INR 1.1 (<1.2) APTT 31.3 H (22.0-30.0) sec Sodium 139 (137-145) mmol/L Potassium 4.2 (3.5-5.1) mmol/L Chloride 105 (98-107) mmol/L Carbon Dioxide 29 (22-30) mmol/L Anion Gap 5 mmol/L BUN 27 H (9-20) mg/dL Creatinine 0.81 (0.66-1.25) mg/dL Est GFR (CKD-EPI)AfAm >90 (>60 ml/min/1.73 sqM) Est GFR (CKD-EPI)NonAf >90 (>60 ml/min/1.73 sqM) Glucose 116 H (74-99) mg/dL Plasma Lactic Acid Sanjay (0.7-2.0) mmol/L Calcium 8.8 (8.4-10.2) mg/dL Phosphorus 3.9 (2.5-4.5) mg/dL Magnesium 2.0 (1.6-2.3) mg/dL Total Bilirubin 0.5 (0.2-1.3) mg/dL AST 29 (17-59) U/L ALT 24 (4-49) U/L Alkaline Phosphatase 72 (38-126) U/L Troponin I (0.000-0.034) ng/mL Total Protein 5.7 L (6.3-8.2) g/dL Albumin 3.7 (3.5-5.0) g/dL TSH 0.438 L (0.465-4.680) mIU/L Free T4 (0.78-2.19) ng/dL Urine Color Urine Appearance (Clear) Urine pH (5.0-8.0) Ur Specific Seymour (1.001-1.035) Urine Protein (Negative) Urine Glucose (UA) (Negative) Urine Ketones (Negative) Urine Blood (Negative) Urine Nitrite (Negative) Urine Bilirubin (Negative) Urine Urobilinogen (<2.0) mg/dL Ur Leukocyte Esterase (Negative) Influenza Type A (PCR) (Not Detectd) Influenza Type B (PCR) (Not Detectd) RSV (PCR) (Not Detectd) SARS-CoV-2 (PCR) (Not Detectd) 09/03/22 09/03/22 09/03/22 Range/Units 10:50 10:50 10:50 WBC (3.8-10.6) k/uL RBC (4.30-5.90) m/uL Hgb (13.0-17.5) gm/dL Hct (39.0-53.0) % MCV (80.0-100.0) fL MCH (25.0-35.0) pg MCHC (31.0-37.0) g/dL RDW (11.5-15.5) % Plt Count (150-450) k/uL MPV Neutrophils % % Lymphocytes % % Monocytes % % Eosinophils % % Basophils % % Neutrophils # (1.3-7.7) k/uL Lymphocytes # (1.0-4.8) k/uL Monocytes # (0-1.0) k/uL Eosinophils # (0-0.7) k/uL Basophils # (0-0.2) k/uL PT (9.0-12.0) sec INR (<1.2) APTT (22.0-30.0) sec Sodium (137-145) mmol/L Potassium (3.5-5.1) mmol/L Chloride (98-107) mmol/L Carbon Dioxide (22-30) mmol/L Anion Gap mmol/L BUN (9-20) mg/dL Creatinine (0.66-1.25) mg/dL Est GFR (CKD-EPI)AfAm (>60 ml/min/1.73 sqM) Est GFR (CKD-EPI)NonAf (>60 ml/min/1.73 sqM) Glucose (74-99) mg/dL Plasma Lactic Acid Sanjay 0.8 (0.7-2.0) mmol/L Calcium (8.4-10.2) mg/dL Phosphorus (2.5-4.5) mg/dL Magnesium (1.6-2.3) mg/dL Total Bilirubin (0.2-1.3) mg/dL AST (17-59) U/L ALT (4-49) U/L Alkaline Phosphatase (38-126) U/L Troponin I <0.012 (0.000-0.034) ng/mL Total Protein (6.3-8.2) g/dL Albumin (3.5-5.0) g/dL TSH (0.465-4.680) mIU/L Free T4 (0.78-2.19) ng/dL Urine Color Urine Appearance (Clear) Urine pH (5.0-8.0) Ur Specific Se[place] (1.001-1.035) Urine Protein (Negative) Urine Glucose (UA) (Negative) Urine Ketones (Negative) Urine Blood (Negative) Urine Nitrite (Negative) Urine Bilirubin (Negative) Urine Urobilinogen (<2.0) mg/dL Ur Leukocyte Esterase (Negative) Influenza Type A (PCR) Not Detected (Not Detectd) Influenza Type B (PCR) Not Detected (Not Detectd) RSV (PCR) Not Detected (Not Detectd) SARS-CoV-2 (PCR) Not Detected (Not Detectd) 09/03/22 09/03/22 Range/Units 10:50 12:40 WBC (3.8-10.6) k/uL RBC (4.30-5.90) m/uL Hgb (13.0-17.5) gm/dL Hct (39.0-53.0) % MCV (80.0-100.0) fL MCH (25.0-35.0) pg MCHC (31.0-37.0) g/dL RDW (11.5-15.5) % Plt Count (150-450) k/uL MPV Neutrophils % % Lymphocytes % % Monocytes % % Eosinophils % % Basophils % % Neutrophils # (1.3-7.7) k/uL Lymphocytes # (1.0-4.8) k/uL Monocytes # (0-1.0) k/uL Eosinophils # (0-0.7) k/uL Basophils # (0-0.2) k/uL PT (9.0-12.0) sec INR (<1.2) APTT (22.0-30.0) sec Sodium (137-145) mmol/L Potassium (3.5-5.1) mmol/L Chloride (98-107) mmol/L Carbon Dioxide (22-30) mmol/L Anion Gap mmol/L BUN (9-20) mg/dL Creatinine (0.66-1.25) mg/dL Est GFR (CKD-EPI)AfAm (>60 ml/min/1.73 sqM) Est GFR (CKD-EPI)NonAf (>60 ml/min/1.73 sqM) Glucose (74-99) mg/dL Plasma Lactic Acid Sanjay (0.7-2.0) mmol/L Calcium (8.4-10.2) mg/dL Phosphorus (2.5-4.5) mg/dL Magnesium (1.6-2.3) mg/dL Total Bilirubin (0.2-1.3) mg/dL AST (17-59) U/L ALT (4-49) U/L Alkaline Phosphatase (38-126) U/L Troponin I (0.000-0.034) ng/mL Total Protein (6.3-8.2) g/dL Albumin (3.5-5.0) g/dL TSH (0.465-4.680) mIU/L Free T4 1.27 (0.78-2.19) ng/dL Urine Color Light Yellow Urine Appearance Clear (Clear) Urine pH 5.5 (5.0-8.0) Ur Specific [place] 1.013 (1.001-1.035) Urine Protein Negative (Negative) Urine Glucose (UA) Negative (Negative) Urine Ketones Negative (Negative) Urine Blood Negative (Negative) Urine Nitrite Negative (Negative) Urine Bilirubin Negative (Negative) Urine Urobilinogen <2.0 (<2.0) mg/dL Ur Leukocyte Esterase Negative (Negative) Influenza Type A (PCR) (Not Detectd) Influenza Type B (PCR) (Not Detectd) RSV (PCR) (Not Detectd) SARS-CoV-2 (PCR) (Not Detectd) - Radiology Data Radiology results: report reviewed, image reviewed Disposition Clinical Impression: Fall, Generalized weakness, Dehydration Disposition: HOME SELF-CARE Condition: Stable Instructions (If sedation given, give patient instructions): Weakness (ED), Fall Prevention (ED) Additional Instructions: Please follow-up with your primary care provider and painter decorator. Avoid taking medications that may cause drowsiness or respiratory sedation. Stay well hydrated. Change positions slowly. Please return to the Emergency Department if symptoms worsen or any other concerns. Is patient prescribed a controlled substance at d/c from ED?: No Referrals: Rosendo Mota MD [Primary Care Provider] - 1-2 days Time of Disposition: 13:27
[2022-09-03 11:05] LABS: Basophils % (A) 0 %; Eosinophils # (A) 0.1 k/uL (0-0.7); Eosinophils % (A) 2 %; HCT 34.1 % (39.0-53.0); Lymphocytes # (A) 0.8 k/uL (1.0-4.8); Lymphocytes % (A) 12 %; MCH 30.3 pg (25.0-35.0); MCHC 32.3 g/dL (31.0-37.0); MCV 93.6 fL (80.0-100.0); Mean Platelet Volume 8.3; Monocytes # (A) 0.5 k/uL (0-1.0); Monocytes % (A) 8 %; Neutrophils # (A) 4.9 k/uL (1.3-7.7); Neutrophils % (A) 76 %; Platelet Count 225 k/uL (150-450); RBC 3.64 m/uL (4.30-5.90); RDW 14.9 % (11.5-15.5); WBC 6.5 k/uL (3.8-10.6)
[2022-09-03 11:17] LABS: INR 1.1 (<1.2); Partial Thromboplastin Time 31.3 sec (22.0-30.0); Prothrombin Time 11.2 sec (9.0-12.0)
[2022-09-03 11:23] LABS: ALT 24 U/L (4-49); AST 29 U/L (17-59); African American GFR (CKD) >90 (>60 ml/min/1.73 sqM); Albumin 3.7 g/dL (3.5-5.0); Alkaline Phosphatase 72 U/L (38-126); Anion Gap 5 mmol/L; Blood Urea Nitrogen 27 mg/dL (9-20); Calcium 8.8 mg/dL (8.4-10.2); Carbon Dioxide 29 mmol/L (22-30); Chloride 105 mmol/L (98-107); Glucose 116 mg/dL (74-99); Non-African American GFR(CKD) >90 (>60 ml/min/1.73 sqM); Phosphorus 3.9 mg/dL (2.5-4.5); Potassium 4.2 mmol/L (3.5-5.1); Sodium 139 mmol/L (137-145); Total Bilirubin 0.5 mg/dL (0.2-1.3); Total Protein 5.7 g/dL (6.3-8.2)
--- NOTE | 2022-09-03 11:42 | CT ---
EXAMINATION TYPE: CT cervical spine wo con CT DLP: 388.3 mGycm, Automated exposure control for dose reduction was used. DATE OF EXAM: 09/03/2022 11:30 AM COMPARISON: None. CLINICAL INDICATION:Male, 57 years old with history of weakness fall; , Fall TECHNIQUE: Axial CT images from the skull base to the inferior aspect of T2 we obtained without intra venous contrast. Coronal and sagittal reformatted images were also reviewed. FINDINGS: Fracture: None. Osseous structures: Multilevel degenerative disc disease changes with endplate spurring and disc oste ophyte complex's. 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 N onfusion of the posterior arch and absent right pedicle. Vertebral alignment: Alignment within normal limits. Spinal canal/Neural Foramina: No evidence of significant spinal canal narrowing. No evidence for sign ificant neural foraminal stenosis. Neck soft tissues: Prevertebral soft tissues are within normal limits. Other: The airway is patent. The lung apices are clear. IMPRESSION: 1. No evidence of cervical spine fracture. 2. Mild multilevel degenerative disc disease. 3. C5 vertebral body anomaly with suspected absence right pedicle and nonfusion posterior arch..
--- NOTE | 2022-09-03 12:40 | XR ---
EXAMINATION TYPE: XR Hip RT and AP Pelvis DATE OF EXAM: 09/03/2022 COMPARISON: NONE HISTORY: Fall injury with pelvic and right hip pain TECHNIQUE: A single AP view of the pelvis is obtained. Two views of the right hip are obtained. FINDINGS: There is no acute fracture/dislocation evident in the pelvis. Mild axial joint space loss in both hips left greater than right. Pubic symphysis is intact. Sacroiliac joints are preserved. Pos tsurgical changes right L5-S1 level is noted . The overlying soft tissue appears unremarkable. Two views of right hip show no acute fracture or dislocation. No focal lytic or sclerotic lesion see n in the proximal right femur. Well-defined round bony density from the lateral aspect of the superio r acetabulum could reflect os acetabuli The overlying soft tissue is unremarkable. IMPRESSION: There is no acute fracture or dislocation in the pelvis or right hip.
--- NOTE | 2022-09-03 12:41 | XR ---
EXAMINATION TYPE: XR shoulder complete RT DATE OF EXAM: 09/03/2022 CLINICAL HISTORY: Falling injury with pain TECHNIQUE: Three views of the right shoulder are obtained. COMPARISON: Right shoulder x-ray January 17, 2019. FINDINGS: Osseous structures are demineralized. There is no acute fracture/dislocation evident in th e right shoulder. Mild narrowing at the acromioclavicular joint remains present. Tiny ossific fragmen ts at the level of the acromion are again seen could reflect product of old trauma. Glenohumeral join t is maintained. The visualized ribs are intact and unremarkable. IMPRESSION: There is no acute fracture or dislocation in the right shoulder. No significant change f rom prior.
--- NOTE | 2022-09-03 12:43 | XR ---
EXAMINATION TYPE: XR foot complete LT DATE OF EXAM: 09/03/2022 CLINICAL HISTORY: Falling injury with pain TECHNIQUE: Frontal, lateral, and oblique images of the left foot are obtained. COMPARISON: Prior left foot x-ray 2018 FINDINGS: Osseous structures are demineralized which is noted to lower radiographic sensitivity. The re is no acute fracture/dislocation evident in the left foot. Old healed fractures through the third and fourth metatarsal heads are noted. Small to moderate size inferior calcaneal spur is redemonstrat ed The joint spaces in the left foot appear within normal limits. Accessory ossicle near lateral base of the cuboid bone again seen. The overlying soft tissue appears unremarkable. IMPRESSION: There is no acute fracture or dislocation in the left foot.
--- NOTE | 2022-09-03 12:46 | XR ---
EXAMINATION TYPE: XR lumbar spine 2 or 3V DATE OF EXAM: 09/03/2022 CLINICAL HISTORY: Falling injury with pain TECHNIQUE: Frontal and lateral images of the lumbar spine are obtained. COMPARISON: None FINDINGS: There are 5 lumbar type vertebral bodies identified. Osseous structures are demineralized which is noted to lower radiographic sensitivity. There is levoconvex scoliosis centered at L3 level. There are right interpedicular rods and screws running from L2 through L4 levels with metallic disc material at L2-L3 and L3-L4 levels. There is posterior interpedicular sam and screws right L5-S1 leve l. Alignment is straightened on the lateral images. There is moderate to severe disc space narrowing with vacuum disc phenomenon at L4-L5 level. No acute displaced fracture is seen. Mild overlying arter ial vascular calcification is noted. IMPRESSION: As above.
--- NOTE | 2022-09-03 12:47 | XR ---
EXAMINATION TYPE: XR thoracic spine complete DATE OF EXAM: 09/03/2022 CLINICAL HISTORY: Fall injury with mid back pain. TECHNIQUE: Frontal, lateral, and swimmer's view of thoracic spine are obtained. COMPARISON: None. FINDINGS: Thoracic spine show straightens alignment without evidence of acute fracture or dislocation . Vertebral body heights and disc space heights are preserved. Visualized ribs are intact bilaterall y. IMPRESSION: No acute displaced fracture is seen in the thoracic spine.
[2022-09-03 12:49] LABS: Appearance,Urine Clear (Clear); Bilirubin,Urine Negative (Negative); Blood,Urine Negative (Negative); Color,Urine Light Yellow; Glucose,Urine (UA) Negative (Negative); Ketones,Urine Negative (Negative); Leukocyte Esterase,Urine Negative (Negative); Nitrite,Urine Negative (Negative); PH, Urine 5.5 (5.0-8.0); Protein,Urine Negative (Negative); Specific Gravity,Urine 1.013 (1.001-1.035); Urobilinogen,Urine <2.0 mg/dL (<2.0)
--- NOTE | 2022-09-03 12:50 | XR ---
EXAMINATION TYPE: XR chest 1V DATE OF EXAM: 09/03/2022 COMPARISON: Prior chest x-ray April 13, 2018 HISTORY: Weakness. TECHNIQUE: 2 frontal views of the chest are obtained. FINDINGS: There is some chronic parenchymal change without suspicious new focal air space opacity, p leural effusion, or pneumothorax seen. The cardiac silhouette size is stable and upper limits of nor mal. Surgical change of the lumbar spine is partially imaged. IMPRESSION: No acute process. No significant change from prior.
[2022-09-03 13:48] VITALS: BP 134/70; PULSE 64; RESP 16
== END 2022-09-03 13:48 | disposition home or self-care (01) ==
LOC: EC 09:49
DX: E86.0 Dehydration (principal); R53.1 Weakness; M54.6 Pain in thoracic spine; M54.50 Low back pain, unspecified; M79.672 Pain in left foot; M25.551 Pain in right hip; M25.511 Pain in right shoulder; E11.9 Type 2 diabetes mellitus without complications; I10 Essential (primary) hypertension; Z20.822 Contact with and (suspected) exposure to COVID-19; Z79.899 Other long term (current) drug therapy; Z88.8 Allergy status to other drugs, medicaments and biological substances
CPT/HCPCS: 36415; 93005; 84439; 80053; 83605; 83735; 84100; 84443; 84484; 85025; 85610; 85730; 81003; 87636; 72072; 72100; 73502; 73030; 73630; 71045; 72125; 99285; 96374; 96376; 96361; J1170

== ENCOUNTER 2024-07-12 10:58 | Inpatient (IN) | payer BC, MEDICARE ==
[2024-07-12 11:21] LABS: Glucose,Whole Blood 126 mg/dL (70-110)
--- NOTE | 2024-07-12 11:27 | ED ---
General Adult HPI - General Chief complaint: Overdose Stated complaint: AMS Time Seen by Provider: 07/12/24 11:00 Source: patient, EMS, RN notes reviewed, old records reviewed Mode of arrival: EMS Limitations: altered mental status - History of Present Illness Initial comments: This is a 58-year-old male who was found down and unresponsive on his floor at home according to EMS the stated that he has been on the floor since Saturday. EMS gave the patient Narcan on the way and he became much more responsive he is able to answer some questions he denies taking an excessive amount of any medications. Patient denies injecting any meds however he does appear to have some injection zurita on his arms. Patient is not able to give us any further history. No family members here at this time - Related Data Home Medications Medication Instructions Recorded Confirmed Cyclobenzaprine [Flexeril] 10 mg PO Q6HR PRN 04/11/18 04/11/18 Exenatide Microspheres [Bydureon 2 mg SQ MARKS 04/11/18 04/11/18 Pen] Furosemide [Lasix] 20 mg PO Q6HR PRN 04/11/18 04/11/18 HYDROmorphone HCL [Exalgo] 48 mg PO BID 04/11/18 04/11/18 HYDROmorphone [Dilaudid] 1 - 2 tab PO BID 04/11/18 04/11/18 Ibuprofen [Motrin Ib] 400 mg PO TID 04/11/18 04/11/18 LORazepam [Ativan] 1 mg PO BID 04/11/18 04/11/18 Lisinopril-Hctz 20-12.5 mg 1 tab PO DAILY 04/11/18 04/11/18 [Zestoretic 20-12.5] Prochlorperazine [Compazine] 10 mg PO TID PRN 04/11/18 04/11/18 tiZANidine [Zanaflex] 4 mg PO QID PRN 04/11/18 04/11/18 Previous Rx's Medication Instructions Recorded cefaDROXiL [Duricef] 500 mg PO Q12HR #20 cap 04/16/18 Allergies Allergy/AdvReac Type Severity Reaction Status Date / Time prednisone Allergy Rash/Hives Verified 09/03/22 10:13 Review of Systems ROS Statement: Those systems with pertinent positive or pertinent negative responses have been documented in the HPI. ROS Other: All systems not noted in ROS Statement are negative. Past Medical History Past Medical History: Diabetes Mellitus, Hypertension, Pneumonia Additional Past Medical History / Comment(s): Chronic back pain History of Any Multi-Drug Resistant Organisms: None Reported Past Surgical History: Back Surgery, Orthopedic Surgery Additional Past Surgical History / Comment(s): Right knee, right shoulder, multiple back surgeries with hardware. Past Psychological History: No Psychological Hx Reported Smoking Status: Unknown if ever smoked Past Alcohol Use History: Unable to Obtain Past Drug Use History: Heroin General Exam - General Exam Comments Initial Comments: GENERAL: Patient is well-developed and well-nourished. Patient is nontoxic and well- hydrated and is in mild distress. ENT: Neck is soft and supple. No significant lymphadenopathy is noted. Oropharynx is clear. Moist mucous membranes. Neck has full range of motion without eliciting any pain. EYES: The sclera were anicteric and conjunctiva were pink and moist. Extraocular movements were intact and pupils were equal round and reactive to light. Eyelids were unremarkable. PULMONARY: Unlabored respirations. Good breath sounds bilaterally. No audible rales rhonchi or wheezing was noted. CARDIOVASCULAR: There is a regular rate and rhythm without any murmurs gallops or rubs. ABDOMEN: Soft and nontender with normal bowel sounds. No palpable organomegaly was noted. There is no palpable pulsatile mass. SKIN: Skin is clear with no lesions or rashes and otherwise unremarkable. NEUROLOGIC: Patient is alert and oriented x 2. Cranial nerves II through XII are grossly intact. Motor and sensory are also intact. Normal speech, volume and content. Symmetrical smile. MUSCULOSKELETAL: Normal extremities with adequate strength and full range of motion. Patient has tenderness to the medial right knee as well as the lateral aspect of the left arm and forearm. Both areas show some petechiae.. LYMPHATICS: No significant lymphadenopathy is noted PSYCHIATRIC: Unable to assess at this time Limitations: altered mental status Course Vital Signs 07/12/24 07/12/24 10:59 14:00 Temperature 97.7 F Pulse Rate 61 90 Respiratory 30 H 16 Rate Blood Pressure 114/83 O2 Sat by Pulse 97 96 Oximetry Medical Decision Making - Medical Decision Making EKG is interpreted by myself. EKG shows a sinus rhythm with occasional PAC at 79 bpm W[place] 144 QRS is 122 QT interval is 413 QTc is 448. Patient EKG shows no ST segment elevation or depression. Was pt. sent in by a medical professional or institution (ARNOLD Santiago, FINANCIAL AUDITOR, urgent care, hospital, or halfway...) When possible be specific @ -No Did you speak to anyone other than the patient for history (EMS, parent, family, police, friend...)? What history was obtained from this source @ -No Did you review nursing and triage notes (agree or disagree)? Why? @ -I reviewed and agree with nursing and triage notes Were old charts reviewed (outside hosp., previous admission, EMS record, old EKG, old radiological studies, urgent care reports/EKG's, halfway records)? Report findings @ -No old charts were reviewed Differential Diagnosis? @ -Differential Altered Mental Status: Hypoglycemia, DKA, hypercapnia, ETOH, overdose, CO poisoning, trauma, myxedema coma, HTN encephalopathy, infection, encephalitis, psychosis, intercranial hemorrhage, hepatic encephalopathy, meningitis, CVA, this is not meant to be an all-inclusive list EKG interpreted by me (3pts min.). @ -As above X-rays interpreted by me (1pt min.). @ -Chest x-ray shows no acute abnormality CT interpreted by me (1pt min.). @ -CT of the brain shows no acute abnormality U/S interpreted by me (1pt. min.). @ -None done What testing was considered but not performed or refused? (CT, X-rays, U/S, labs)? Why? @ -None What meds were considered but not given or refused? Why? @ -None Did you discuss the management of the patient with other professionals (lorena moya i.e. ARNOLD Santiago, FINANCIAL AUDITOR, lab, RT, psych nurse, aids social worker, knot tying operator, teacher, navigating officer, case management social worker)? Give summary @ -[facility] Was smoking cessation discussed for >3mins.? @ -No Was critical care preformed (if so, how long)? @ -No Were there social determinants of health that impacted care today? How? (Homelessness, low income, unemployed, alcoholism, drug addiction, transportation, low edu. Level, literacy, decrease access to med. care, shelter, rehab)? @ -No Was there de-escalation of care discussed even if they declined (Discuss DNR or withdrawal of care, Hospice)? DNR status @ -No What co-morbidities impacted this encounter? (DM, HTN, Smoking, COPD, CAD, Cancer, CVA, ARF, Chemo, Hep., AIDS, mental health diagnosis, sleep apnea, morbid obesity)? @ -None Was patient admitted / discharged? Hospital course, mention meds given and route, prescriptions, significant lab abnormalities, going to OR and other pertinent info. @ -Patient continues to be altered and not back to his baseline CAT scan was normal lab work is normal. Patient may have taken too many narcotics but he denies. Undiagnosed new problem with uncertain prognosis? @ -No Drug Therapy requiring intensive monitoring for toxicity (Heparin, Nitro, Ins ulin, Cardizem)? @ -No Were any procedures done? @ -No Diagnosis/symptom? @ -Altered mental status Acute, or Chronic, or Acute on Chronic? @ -Acute Uncomplicated (without systemic symptoms) or Complicated (systemic symptoms)? @ -Complicated Side effects of treatment? @ -No Exacerbation, Progression, or Severe Exacerbation? @ -No Poses a threat to life or bodily function? How? (Chest pain, [place], [place], pneumonia, PE, COPD, DKA, ARF, appy, cholecystitis, CVA, Diverticulitis, Homicidal, Suicidal, threat to staff... and all critical care pts) @ -Yes an acute overdose could cause - Lab Data Result diagrams: 07/12/24 11:34 07/12/24 12:17 Lab Results 07/12/24 07/12/24 07/12/24 Range/Units 11:19 11:34 11:34 WBC 11.6 H (3.8-10.6) k/uL RBC 5.07 (4.30-5.90) m/uL Hgb 14.3 (13.0-17.5) gm/dL Hct 45.8 (39.0-53.0) % MCV 90.4 (80.0-100.0) fL MCH 28.2 (25.0-35.0) pg MCHC 31.3 (31.0-37.0) g/dL RDW 14.3 (11.5-15.5) % Plt Count 242 (150-450) k/uL MPV 8.0 Neutrophils % 83 % Lymphocytes % 8 % Monocytes % 7 % Eosinophils % 1 % Basophils % 0 % Neutrophils # 9.6 H (1.3-7.7) k/uL Lymphocytes # 0.9 L (1.0-4.8) k/uL Monocytes # 0.9 (0-1.0) k/uL Eosinophils # 0.1 (0-0.7) k/uL Basophils # 0.0 (0-0.2) k/uL PT 12.3 (10.0-12.5) sec INR 1.1 (<1.2) APTT 27.8 (22.0-30.0) sec VBG pH (7.31-7.41) VBG pCO2 (37-51) mmHg VBG HCO3 (24-28) mmol/L Sodium (137-145) mmol/L Potassium (3.5-5.1) mmol/L Chloride (98-107) mmol/L Carbon Dioxide (22-30) mmol/L Anion Gap mmol/L BUN (9-20) mg/dL Creatinine (0.66-1.25) mg/dL Est GFR (CKD-EPI)AfAm (>60 ml/min/1.73 sqM) Est GFR (CKD-EPI)NonAf (>60 ml/min/1.73 sqM) Glucose (74-99) mg/dL POC Glucose (mg/dL) 126 H (70-110) mg/dL POC Glu Palm Gatherer ID [facility] Plasma Lactic Acid Sanjay (0.7-2.0) mmol/L Calcium (8.4-10.2) mg/dL Total Bilirubin (0.2-1.3) mg/dL AST (17-59) U/L ALT (4-49) U/L Alkaline Phosphatase (38-126) U/L Ammonia (<30) umol/L Creatine Kinase (55-170) U/L Troponin I (0.000-0.034) ng/mL Total Protein (6.3-8.2) g/dL Albumin (3.5-5.0) g/dL Salicylates mg/dL Urine Opiates Screen (NotDetected) Ur Oxycodone Screen (NotDetected) Urine Methadone Screen (NotDetected) Acetaminophen ug/mL Ur Barbiturates Screen (NotDetected) U Tricyclic Antidepress (NotDetected) Ur Phencyclidine Scrn (NotDetected) Ur Amphetamines Screen (NotDetected) U Methamphetamines Scrn (NotDetected) U Benzodiazepines Scrn (NotDetected) Urine Cocaine Screen (NotDetected) U Marijuana (THC) Screen (NotDetected) Serum Alcohol mg/dL 07/12/24 07/12/24 07/12/24 Range/Units 11:34 11:34 12:17 WBC (3.8-10.6) k/uL RBC (4.30-5.90) m/uL Hgb (13.0-17.5) gm/dL Hct (39.0-53.0) % MCV (80.0-100.0) fL MCH (25.0-35.0) pg MCHC (31.0-37.0) g/dL RDW (11.5-15.5) % Plt Count (150-450) k/uL MPV Neutrophils % % Lymphocytes % % Monocytes % % Eosinophils % % Basophils % % Neutrophils # (1.3-7.7) k/uL Lymphocytes # (1.0-4.8) k/uL Monocytes # (0-1.0) k/uL Eosinophils # (0-0.7) k/uL Basophils # (0-0.2) k/uL PT (10.0-12.5) sec INR (<1.2) APTT (22.0-30.0) sec VBG pH (7.31-7.41) VBG pCO2 (37-51) mmHg VBG HCO3 (24-28) mmol/L Sodium 138 (137-145) mmol/L Potassium 3.9 (3.5-5.1) mmol/L Chloride 101 (98-107) mmol/L Carbon Dioxide 29 (22-30) mmol/L Anion Gap 8 mmol/L BUN 48 H (9-20) mg/dL Creatinine 0.84 (0.66-1.25) mg/dL Est GFR (CKD-EPI)AfAm >90 (>60 ml/min/1.73 sqM) Est GFR (CKD-EPI)NonAf >90 (>60 ml/min/1.73 sqM) Glucose 117 H (74-99) mg/dL POC Glucose (mg/dL) (70-110) mg/dL POC Glu Palm Gatherer ID Plasma Lactic Acid Sanjay 1.4 (0.7-2.0) mmol/L Calcium 9.0 (8.4-10.2) mg/dL Total Bilirubin 1.0 (0.2-1.3) mg/dL AST 60 H (17-59) U/L ALT 38 (4-49) U/L Alkaline Phosphatase 100 (38-126) U/L Ammonia <9 (<30) umol/L Creatine Kinase 587 H (55-170) U/L Troponin I <0.012 (0.000-0.034) ng/mL Total Protein 5.9 L (6.3-8.2) g/dL Albumin 3.6 (3.5-5.0) g/dL Salicylates <1.0 mg/dL Urine Opiates Screen (NotDetected) Ur Oxycodone Screen (NotDetected) Urine Methadone Screen (NotDetected) Acetaminophen <10.0 ug/mL Ur Barbiturates Screen (NotDetected) U Tricyclic Antidepress (NotDetected) Ur Phencyclidine Scrn (NotDetected) Ur Amphetamines Screen (NotDetected) U Methamphetamines Scrn (NotDetected) U Benzodiazepines Scrn (NotDetected) Urine Cocaine Screen (NotDetected) U Marijuana (THC) Screen (NotDetected) Serum Alcohol <10 mg/dL 07/12/24 07/12/24 Range/Units 13:20 14:00 WBC (3.8-10.6) k/uL RBC (4.30-5.90) m/uL Hgb (13.0-17.5) gm/dL Hct (39.0-53.0) % MCV (80.0-100.0) fL MCH (25.0-35.0) pg MCHC (31.0-37.0) g/dL RDW (11.5-15.5) % Plt Count (150-450) k/uL MPV Neutrophils % % Lymphocytes % % Monocytes % % Eosinophils % % Basophils % % Neutrophils # (1.3-7.7) k/uL Lymphocytes # (1.0-4.8) k/uL Monocytes # (0-1.0) k/uL Eosinophils # (0-0.7) k/uL Basophils # (0-0.2) k/uL PT (10.0-12.5) sec INR (<1.2) APTT (22.0-30.0) sec VBG pH 7.39 (7.31-7.41) VBG pCO2 45 (37-51) mmHg VBG HCO3 27 (24-28) mmol/L Sodium (137-145) mmol/L Potassium (3.5-5.1) mmol/L Chloride (98-107) mmol/L Carbon Dioxide (22-30) mmol/L Anion Gap mmol/L BUN (9-20) mg/dL Creatinine (0.66-1.25) mg/dL Est GFR (CKD-EPI)AfAm (>60 ml/min/1.73 sqM) Est GFR (CKD-EPI)NonAf (>60 ml/min/1.73 sqM) Glucose (74-99) mg/dL POC Glucose (mg/dL) (70-110) mg/dL POC Glu Palm Gatherer ID Plasma Lactic Acid Sanjay (0.7-2.0) mmol/L Calcium (8.4-10.2) mg/dL Total Bilirubin (0.2-1.3) mg/dL AST (17-59) U/L ALT (4-49) U/L Alkaline Phosphatase (38-126) U/L Ammonia (<30) umol/L Creatine Kinase (55-170) U/L Troponin I (0.000-0.034) ng/mL Total Protein (6.3-8.2) g/dL Albumin (3.5-5.0) g/dL Salicylates mg/dL Urine Opiates Screen Detected H (NotDetected) Ur Oxycodone Screen Detected H (NotDetected) Urine Methadone Screen Not Detected (NotDetected) Acetaminophen ug/mL Ur Barbiturates Screen Not Detected (NotDetected) U Tricyclic Antidepress Detected H (NotDetected) Ur Phencyclidine Scrn Not Detected (NotDetected) Ur Amphetamines Screen Not Detected (NotDetected) U Methamphetamines Scrn Not Detected (NotDetected) U Benzodiazepines Scrn Not Detected (NotDetected) Urine Cocaine Screen Not Detected (NotDetected) U Marijuana (THC) Screen Not Detected (NotDetected) Serum Alcohol mg/dL Disposition Clinical Impression: Altered mental status Disposition: ADMITTED IP TO THIS HOSP Referrals: Rosendo Mota MD [Primary Care Provider] - 1-2 days Time of Disposition: 15:24
[2024-07-12] MEDS: SODIUM CHLORIDE 0.9% 1,000 ML IV ONE ×3 (11:37→15:57)
[2024-07-12 11:51] LABS: Basophils % (A) 0 %; Eosinophils # (A) 0.1 k/uL (0-0.7); Eosinophils % (A) 1 %; HCT 45.8 % (39.0-53.0); HGB 14.3 gm/dL (13.0-17.5); Lymphocytes # (A) 0.9 k/uL (1.0-4.8); Lymphocytes % (A) 8 %; MCH 28.2 pg (25.0-35.0); MCHC 31.3 g/dL (31.0-37.0); MCV 90.4 fL (80.0-100.0); Monocytes # (A) 0.9 k/uL (0-1.0); Monocytes % (A) 7 %; Neutrophils # (A) 9.6 k/uL (1.3-7.7); Neutrophils % (A) 83 %; Platelet Count 242 k/uL (150-450); RBC 5.07 m/uL (4.30-5.90); RDW 14.3 % (11.5-15.5); WBC 11.6 k/uL (3.8-10.6)
[2024-07-12 11:58] LABS: INR 1.1 (<1.2); Partial Thromboplastin Time 27.8 sec (22.0-30.0); Prothrombin Time 12.3 sec (10.0-12.5)
--- NOTE | 2024-07-12 12:12 | XR ---
EXAMINATION TYPE: XR chest 2V DATE OF EXAM: 07/12/2024 12:05 PM COMPARISON: Chest radiographs from 09/03/2022 TECHNIQUE: XR chest 2V Frontal and lateral views of the chest. CLINICAL INDICATION:Male, 58 years old with history of altered mental status; FINDINGS: Lungs/Pleura: There is no evidence of pleural effusion, focal consolidation, or pneumothorax. Chroni c elevation of the left hemidiaphragm. Pulmonary vascularity: Unremarkable. Heart/mediastinum: Cardiomediastinal silhouette is unremarkable. Atherosclerotic calcifications are seen in the aorta. Musculoskeletal: Multiple level degenerative disc disease changes seen throughout the spine. IMPRESSION: Chronic changes without acute pulmonary process. [facility], , 07/12/2024 12:10 PM
[2024-07-12 12:24] LABS: Lactic Acid, Venous 1.4 mmol/L (0.7-2.0)
[2024-07-12 12:41] LABS: ALT 38 U/L (4-49); AST 60 U/L (17-59); Acetaminophen <10.0 ug/mL; African American GFR (CKD) >90 (>60 ml/min/1.73 sqM); Albumin 3.6 g/dL (3.5-5.0); Alcohol <10 mg/dL; Alkaline Phosphatase 100 U/L (38-126); Anion Gap 8 mmol/L; Blood Urea Nitrogen 48 mg/dL (9-20); Carbon Dioxide 29 mmol/L (22-30); Chloride 101 mmol/L (98-107); Creatine Kinase 587 U/L (55-170); Glucose 117 mg/dL (74-99); Non-African American GFR(CKD) >90 (>60 ml/min/1.73 sqM); Potassium 3.9 mmol/L (3.5-5.1); Salicylate <1.0 mg/dL; Sodium 138 mmol/L (137-145); Total Protein 5.9 g/dL (6.3-8.2)
[2024-07-12 13:33] LABS: VBG PH 7.39 (7.31-7.41)
[2024-07-12 14:30] LABS: Amphetamine Screen,Urine Not Detected (NotDetected); Cocaine Screen,Urine Not Detected (NotDetected); Opiate Screen,Urine Detected (NotDetected); Phencyclidine Screen,Urine Not Detected (NotDetected); Urn Cannabinoid Scrn Not Detected (NotDetected)
[2024-07-12 14:31] LABS: Barbiturate Screen,Urine Not Detected (NotDetected); Benzodiazepines Screen,Urine Not Detected (NotDetected); Methadone Screen, Urine Not Detected (NotDetected); Oxycodone Screen, Urine Detected (NotDetected); Tricyclic Antidepressant,Urine Detected (NotDetected)
--- NOTE | 2024-07-12 14:52 | CT ---
EXAMINATION TYPE: CT brain cspine wo con DATE OF EXAM: 07/12/2024 2:38 PM COMPARISON: Previous study 09/03/2022. CLINICAL INDICATION: Male, 58 years old with history of Trauma; ams, overdose TECHNIQUE: Brain: Multiple axial CT images of the brain were obtained without IV contrast. Cspine: Axial CT images from the skull base to the inferior aspect of T2 we obtained without intraven ous contrast. Coronal and sagittal reformatted images were also reviewed. . CT DLP: 1418.1 mGycm, Automated exposure control for dose reduction was used. FINDINGS: Study significantly limited due to motion artifact. Brain: Extra-axial spaces: No abnormal extra-axial fluid collections. Ventricular system: Within normal limits Cerebral parenchyma: No acute intraparenchymal hemorrhage or mass effect. The wagner-white junction is well differentiated. Cerebellum: Unremarkable. Mass effect: No evidence of midline shift. Intracranial vasculature: unremarkable Soft tissues: Normal. Calvarium/osseous structures: No depressed skull fracture. Paranasal sinuses and mastoid air cells: Clear. Visualized orbits: Orbital contents are intact. Cervical spine: Fracture: None. Osseous structures: Unremarkable Vertebral alignment: Dextroconvex curvature centered at C4-C5. Spinal canal/Neural Foramina: Multilevel facet arthropathy/uncovertebral hypertrophy in combination w ith posterior disc osteophyte complexes cause varying degrees of multilevel spinal canal and neural f oraminal narrowing. Neck soft tissues: Prevertebral soft tissues are within normal limits. Other: The airway is patent. The lung apices are clear. 8 mm hypodense nodule in the partially visual ized right thyroid lobe. IMPRESSION: 1. No acute intracranial process. 2. No acute fracture or traumatic dislocation of the cervical spine. [facility], , 07/12/2024 2:49 PM
--- NOTE | 2024-07-12 18:48 | P.HPIM ---
History of Present Illness H&P Date: 07/12/24 Chief Complaint: Altered mental status/possible overdose 58-year-old male who was found down and unresponsive on his floor at home according to EMS the stated that he has been on the floor since Saturday. EMS gave the patient Narcan on the way and he became much more responsive he is able to answer some questions he denies taking an excessive amount of any medications. Patient denies injecting any meds however he does appear to have some injection zurita on his arms. Patient is not able to give us any further history. No family members here at this time Patient remains altered at the time of examination; likely resulting from long- acting narcotic; patient will be admitted and monitored closely Blood work reveals WBC of 11.6, hemoglobin of 14.3 and platelet count of 242, sodium 138, potassium 3.9, BUNs/creatinine of 48/0.84, and blood glucose of 117, troponin less than 0.012, ammonia of less than 9, CK elevated at 587 Chest x-ray is negative for any acute abnormality CT of the brain shows no acute intracranial abnormality Review of Systems ROS unobtainable: due to mental status Past Medical History Past Medical History: Diabetes Mellitus, Hypertension, Pneumonia Additional Past Medical History / Comment(s): Chronic back pain History of Any Multi-Drug Resistant Organisms: None Reported Past Surgical History: Back Surgery, Orthopedic Surgery Additional Past Surgical History / Comment(s): Right knee, right shoulder, multiple back surgeries with hardware. Past Psychological History: No Psychological Hx Reported Smoking Status: Unknown if ever smoked Past Alcohol Use History: Unable to Obtain Past Drug Use History: Heroin Medications and Allergies Home Medications Medication Instructions Recorded Confirmed Type Cyclobenzaprine [Flexeril] 10 mg PO TID PRN 07/12/24 07/12/24 History Furosemide [Lasix] 20 mg PO QID PRN 07/12/24 07/12/24 History HYDROmorphone HCL [Dilaudid] 8 mg PO BID PRN 07/12/24 07/12/24 History Lidocaine 5% Patch [Lidoderm] 1 patch TOPICAL DAILY 07/12/24 07/12/24 History Linaclotide [Linzess] 145 mcg PO DAILY PRN 07/12/24 07/12/24 History Oxycodone Myristate [Xtampza ER] 18 mg PO BID 07/12/24 07/12/24 History lisinopriL [Zestril] 20 mg PO DAILY 07/12/24 07/12/24 History tiZANidine HCL 8 mg PO QID PRN 07/12/24 07/12/24 History Allergies Allergy/AdvReac Type Severity Reaction Status Date / Time prednisone Allergy Rash/Hives Verified 07/12/24 16:12 Physical Exam Vitals: Vital Signs Temp Pulse Resp BP Pulse Ox 07/12/24 15:58 68 20 149/87 96 07/12/24 14:00 90 16 96 07/12/24 10:59 97.7 F 61 30 H 114/83 97 Intake and Output 07/12/24 07/12/24 07/12/24 06:59 14:59 22:59 Other: Weight 90.718 kg GENERAL: Patient is well-developed and well-nourished. Patient is nontoxic and well- hydrated and is in mild distress. ENT: Neck is soft and supple. No significant lymphadenopathy is noted. Oropharynx is clear. Moist mucous membranes. Neck has full range of motion without eliciting any pain. EYES: The sclera were anicteric and conjunctiva were pink and moist. Extraocular movements were intact and pupils were equal round and reactive to light. Eyelids were unremarkable. PULMONARY: Unlabored respirations. Good breath sounds bilaterally. No audible rales rhonchi or wheezing was noted. CARDIOVASCULAR: There is a regular rate and rhythm without any murmurs gallops or rubs. ABDOMEN: Soft and nontender with normal bowel sounds. No palpable organomegaly was noted. There is no palpable pulsatile mass. SKIN: Skin is clear with no lesions or rashes and otherwise unremarkable. NEUROLOGIC: Patient is alert and oriented x 2. Cranial nerves II through XII are grossly intact. Motor and sensory are also intact. Normal speech, volume and content. Symmetrical smile. MUSCULOSKELETAL: Normal extremities with adequate strength and full range of motion. Patient has tenderness to the medial right knee as well as the lateral aspect of the left arm and forearm. Both areas show some petechiae.. LYMPHATICS: No significant lymphadenopathy is noted PSYCHIATRIC: Unable to assess at this time Results CBC & Chem 7: 07/12/24 11:34 07/12/24 12:17 Labs: Abnormal Lab Results - Last 24 Hours (Table) 07/12/24 07/12/24 07/12/24 Range/Units 11:19 11:34 12:17 WBC 11.6 H (3.8-10.6) k/uL Neutrophils # 9.6 H (1.3-7.7) k/uL Lymphocytes # 0.9 L (1.0-4.8) k/uL BUN 48 H (9-20) mg/dL Glucose 117 H (74-99) mg/dL POC Glucose (mg/dL) 126 H (70-110) mg/dL AST 60 H (17-59) U/L Creatine Kinase 587 H (55-170) U/L Total Protein 5.9 L (6.3-8.2) g/dL Urine Opiates Screen (NotDetected) Ur Oxycodone Screen (NotDetected) U Tricyclic Antidepress (NotDetected) 07/12/24 Range/Units 14:00 WBC (3.8-10.6) k/uL Neutrophils # (1.3-7.7) k/uL Lymphocytes # (1.0-4.8) k/uL BUN (9-20) mg/dL Glucose (74-99) mg/dL POC Glucose (mg/dL) (70-110) mg/dL AST (17-59) U/L Creatine Kinase (55-170) U/L Total Protein (6.3-8.2) g/dL Urine Opiates Screen Detected H (NotDetected) Ur Oxycodone Screen Detected H (NotDetected) U Tricyclic Antidepress Detected H (NotDetected) Assessment and Plan Assessment: 1. Altered mental status; likely narcotic overdose; patient takes Dilaudid 8 mg twice daily, oxycodone 18 mg p.o. twice daily, tizanidine 8 mg 4 times daily, Flexeril 10 mg 4 times daily -CT of the head completed in ED has been unremarkable for any acute process --Patient received Narcan and brought to ED after which he became completely alert and oriented -- Altered again after CT of the head -Will hold all medications at this time; patient received fluid resuscitation's 2 L of normal saline in ED ED; will continue with normal saline at rate of 75 cc an hour 2. Rhabdomyolysis; CK is elevated at 587 -Was found on the floor unresponsive by the -Patient has been placed on normal saline at rate of 75 cc an hour; we will monitor and trend CK -Creatinine within normal limit at 0.84 3. Mild NAOMIE; BUN slightly elevated at 48; creatinine remains within normal limit; patient is currently on IV fluids; we will monitor BULL's, daily weights, renal function electrolytes; avoid nephrotoxins and hypotension 4. Transaminitis; AST elevated at 60; likely due to medication; will trend liver enzymes 5. Diabetes mellitus by history; monitor Accu-Cheks before every meal and at bedtime with insulin sliding scale 6. Hypertension; currently not on any antihypertensive therapy; will monitor and make further recommendations pending clinical course 7. Chronic back pain; patient takes Dilaudid, hydromorphone, tizanidine and Flexeril; all medications placed on hold DVT prophylaxis; SCDs/subcu heparin CODE STATUS; full code
[2024-07-13 09:05] LABS: Basophils % (A) 0 %; Eosinophils # (A) 0.1 k/uL (0-0.7); Eosinophils % (A) 2 %; HCT 42.4 % (39.0-53.0); HGB 12.8 gm/dL (13.0-17.5); Hypochromasia Slight; Lymphocytes # (A) 0.9 k/uL (1.0-4.8); Lymphocytes % (A) 12 %; MCH 27.9 pg (25.0-35.0); MCHC 30.1 g/dL (31.0-37.0); MCV 92.6 fL (80.0-100.0); Mean Platelet Volume 7.9; Monocytes # (A) 0.8 k/uL (0-1.0); Monocytes % (A) 9 %; Neutrophils % (A) 75 %; Platelet Count 248 k/uL (150-450); RBC 4.58 m/uL (4.30-5.90); RDW 14.4 % (11.5-15.5)
[2024-07-13 09:16] LABS: African American GFR (CKD) >90 (>60 ml/min/1.73 sqM); Anion Gap 9 mmol/L; Blood Urea Nitrogen 36 mg/dL (9-20); Carbon Dioxide 27 mmol/L (22-30); Chloride 106 mmol/L (98-107); Creatine Kinase 142 U/L (55-170); Glucose 108 mg/dL (74-99); Non-African American GFR(CKD) >90 (>60 ml/min/1.73 sqM); Potassium 4.1 mmol/L (3.5-5.1); Sodium 142 mmol/L (137-145)
[2024-07-13] MEDS ORDERED: ONDANSETRON 4 MG/2 ML VIAL IVP PRN (11:03)
[2024-07-13 20:35] LABS: Glucose,Whole Blood 104 mg/dL (70-110)
--- NOTE | 2024-07-13 22:33 | P.PN ---
Subjective Progress Note Date: 07/13/24 Patient evaluated today in the ER he required sternal rub to arouse. He is alert x2. Nursing staff to search belongings. All his narcotics are on hold. Earlier in the day he was up to the bedside standing and using urinal. CK is 152. His bloodwork is essentially unremarkable. Pain management consulted to re-evaluate his chronic pain medications. Review of Systems Constitutional: Denied any fatigue denied any fever. Cardio vascular: denied any chest pain, palpitations Gastrointestinal: denied any nausea, vomiting, diarrhea Pulmonary: Denied any shortness of breath cough Neurologic denied any new focal deficits All inpatient medications were reviewed and appropriate changes in these medications as dictated in the interval history and assessment and plan. PHYSICAL EXAMINATION: GENERAL: The patient is alert and oriented x1-2, not in any acute distress. Well developed, well nourished. HEENT: Pupils are round and equally reacting to light. EOMI. No scleral icterus. No conjunctival pallor. Normocephalic, atraumatic. No pharyngeal erythema. No thyromegaly. CARDIOVASCULAR: S1 and S2 present. No murmurs, rubs, or gallops. PULMONARY: Chest is clear to auscultation, no wheezing or crackles. ABDOMEN: Soft, nontender, nondistended, normoactive bowel sounds. No palpable organomegaly. MUSCULOSKELETAL: No joint swelling or deformity. EXTREMITIES: No cyanosis, clubbing, or pedal edema. NEUROLOGICAL: Gross neurological examination did not reveal any focal deficits. SKIN: No rashes. Assessment and Plan 1. Altered mental status; likely narcotic overdose; patient takes Dilaudid 8 mg twice daily, oxycodone 18 mg p.o. twice daily, tizanidine 8 mg 4 times daily, Flexeril 10 mg 4 times daily -CT of the head completed in ED has been unremarkable for any acute process --Patient received Narcan and brought to ED after which he became completely alert and oriented -- Altered again after CT of the head -Will hold all medications at this time; patient received fluid resuscitation's 2 L of normal saline in ED ED; will continue with normal saline at rate of 75 cc an hour -Consult pain management for review of medications 2. Rhabdomyolysis; CK is elevated at 587 -Was found on the floor unresponsive by the -Patient has been placed on normal saline at rate of 75 cc an hour; we will monitor and trend CK -Creatinine within normal limit at 0.84 3. Mild NAOMIE; BUN slightly elevated at 48; creatinine remains within normal limit; patient is currently on IV fluids; we will monitor BULL's, daily weights, renal function electrolytes; avoid nephrotoxins and hypotension 4. Transaminitis; AST elevated at 60; likely due to medication; will trend liver enzymes 5. Diabetes mellitus by history; monitor Accu-Cheks before every meal and at bedtime with insulin sliding scale 6. Hypertension; currently not on any antihypertensive therapy; will monitor and make further recommendations pending clinical course 7. Chronic back pain; patient takes Dilaudid, hydromorphone, tizanidine and Flexeril; all medications placed on hold DVT prophylaxis; SCDs/subcu heparin CODE STATUS; full code The impression and plan of care has been dictated by Marley Bonilla, Nurse Practitioner as directed. Dr. Kalia MD I have performed a history and physical examination and medical decision making of this patient, discussed the same with the dictator, and agree with the dictators assessment and plan as written, documented as a scribe. Based on total visit time, I have performed more than 50% of this visit. Objective - Vital Signs Vital signs: Vital Signs Temp 98.3 F 07/13/24 11:46 Pulse 82 07/13/24 11:46 Resp 20 07/13/24 11:46 BP 130/89 07/13/24 11:46 Pulse Ox 97 07/13/24 11:46 FiO2 Intake & Output 07/12/24 07/13/24 07/13/24 18:59 06:59 18:59 Weight 90.718 kg 90.718 kg - Labs CBC & Chem 7: 07/13/24 08:20 07/13/24 08:20 Labs: Abnormal Lab Results - Last 24 Hours (Table) 07/13/24 07/13/24 Range/Units 08:20 08:20 Hgb 12.8 L (13.0-17.5) gm/dL MCHC 30.1 L (31.0-37.0) g/dL Lymphocytes # 0.9 L (1.0-4.8) k/uL BUN 36 H (9-20) mg/dL Glucose 108 H (74-99) mg/dL Assessment and Plan Time with Patient: Less than 30
[2024-07-14 07:02] LABS: Glucose,Whole Blood 108 mg/dL (70-110)
[2024-07-14] MEDS: INSULIN LISPRO (HumaLOG) 100 UNIT/ML 10 mL VL SQ SCH (09:46)
[2024-07-14 12:12] LABS: Glucose,Whole Blood 168 mg/dL (70-110)
[2024-07-14] MEDS: NICOTINE 21MG/24HR PATCH TRANSDERM SCH (12:57)
[2024-07-14] MEDS: LIDOCAINE 4% PATCH TOPICAL SCH (12:57)
[2024-07-14 17:06] LABS: Glucose,Whole Blood 113 mg/dL (70-110)
[2024-07-14 17:39] LABS: Bacteria,Urine Rare /hpf; Mucus,Urine Rare /hpf; RBC,Urine 1 /hpf (0-5); WBC,Urine 1 /hpf (0-5)
--- NOTE | 2024-07-14 17:56 | P.PN ---
Subjective Progress Note Date: 07/14/24 Patient evaluated today in the ER he required sternal rub to arouse. He is alert x2. Nursing staff to search belongings. All his narcotics are on hold. Earlier in the day he was up to the bedside standing and using urinal. CK is 152. His bloodwork is essentially unremarkable. Pain management consulted to re-evaluate his chronic pain medications. 07/14/2024 Patient is evaluated in follow-up of medical floor. He is more awake and alert. He is having no acute complaints at this time. He has no focal neurological deficits. He is still lethargic and having difficulty with any conversation. Will continue to monitor and follow-up tomorrow patient may need neurology consultation. PT is recommending subacute rehab. Review of Systems Constitutional: Denied any fatigue denied any fever. Cardio vascular: denied any chest pain, palpitations Gastrointestinal: denied any nausea, vomiting, diarrhea Pulmonary: Denied any shortness of breath cough Neurologic denied any new focal deficits All inpatient medications were reviewed and appropriate changes in these medications as dictated in the interval history and assessment and plan. PHYSICAL EXAMINATION: GENERAL: The patient is alert and oriented x1-2, not in any acute distress. Well developed, well nourished. HEENT: Pupils are round and equally reacting to light. EOMI. No scleral icterus. No conjunctival pallor. Normocephalic, atraumatic. No pharyngeal erythema. No thyromegaly. CARDIOVASCULAR: S1 and S2 present. No murmurs, rubs, or gallops. PULMONARY: Chest is clear to auscultation, no wheezing or crackles. ABDOMEN: Soft, nontender, nondistended, normoactive bowel sounds. No palpable organomegaly. MUSCULOSKELETAL: No joint swelling or deformity. EXTREMITIES: No cyanosis, clubbing, or pedal edema. NEUROLOGICAL: Gross neurological examination did not reveal any focal deficits. SKIN: No rashes. Assessment and Plan 1. Altered mental status; likely narcotic overdose; patient takes Dilaudid 8 mg twice daily, oxycodone 18 mg p.o. twice daily, tizanidine 8 mg 4 times daily, Flexeril 10 mg 4 times daily -CT of the head completed in ED has been unremarkable for any acute process --Patient received Narcan and brought to ED after which he became completely alert and oriented -- Altered again after CT of the head -Will hold all medications at this time; patient received fluid resuscitation's 2 L of normal saline in ED ED; will continue with normal saline at rate of 75 cc an hour -Consult pain management for review of medications 2. Rhabdomyolysis; CK is elevated at 587 -Was found on the floor unresponsive by the -Patient has been placed on normal saline at rate of 75 cc an hour; we will monitor and trend CK -Creatinine within normal limit at 0.84 3. Mild NAOMIE; BUN slightly elevated at 48; creatinine remains within normal limit; patient is currently on IV fluids; we will monitor BULL's, daily weights, renal function electrolytes; avoid nephrotoxins and hypotension 4. Transaminitis; AST elevated at 60; likely due to medication; will trend liver enzymes 5. Diabetes mellitus by history; monitor Accu-Cheks before every meal and at bedtime with insulin sliding scale 6. Hypertension; currently not on any antihypertensive therapy; will monitor and make further recommendations pending clinical course 7. Chronic back pain; patient takes Dilaudid, hydromorphone, tizanidine and Flexeril; all medications placed on hold DVT prophylaxis; SCDs/subcu heparin CODE STATUS; full code The impression and plan of care has been dictated by Marley Bonilla Nurse Practitioner as directed. Dr. Kalia MD I have performed a history and physical examination and medical decision making of this patient, discussed the same with the dictator, and agree with the dictators assessment and plan as written, documented as a scribe. Based on total visit time, I have performed more than 50% of this visit. Objective - Vital Signs Vital signs: Vital Signs Temp 98.1 F 07/14/24 11:59 Pulse 70 07/14/24 11:59 Resp 16 07/14/24 11:59 BP 143/71 07/14/24 11:59 Pulse Ox 96 07/14/24 11:59 FiO2 Intake & Output 07/13/24 07/14/24 07/14/24 18:59 06:59 18:59 Intake Total 590 540 Balance 590 540 Intake: Oral 590 540 Other: Voiding Method Urinal - Labs CBC & Chem 7: 07/13/24 08:20 07/13/24 08:20 Labs: Abnormal Lab Results - Last 24 Hours (Table) 07/14/24 Range/Units 12:10 POC Glucose (mg/dL) 168 H (70-110) mg/dL Assessment and Plan Time with Patient: Less than 30
[2024-07-14 18:11] LABS: Appearance,Urine Clear (Clear); Bilirubin,Urine Negative (Negative); Blood,Urine Negative (Negative); Color,Urine Yellow; Glucose,Urine (UA) Negative (Negative); Ketones,Urine Negative (Negative); Leukocyte Esterase,Urine Negative (Negative); Nitrite,Urine Negative (Negative); Protein,Urine Negative (Negative); Specific Gravity,Urine 1.024 (1.001-1.035)
[2024-07-14 19:49] LABS: Glucose,Whole Blood 183 mg/dL (70-110)
[2024-07-15 07:18] LABS: Glucose,Whole Blood 102 mg/dL (70-110)
[2024-07-15 12:13] LABS: Glucose,Whole Blood 110 mg/dL (70-110)
[2024-07-15] MEDS: HEPARIN SODIUM,PORCINE 5,000 UNIT/ML 1 ML VIAL SQ SCH (12:52)
--- NOTE | 2024-07-15 14:50 | P.PN ---
Subjective Progress Note Date: 07/15/24 Patient evaluated today in the ER he required sternal rub to arouse. He is alert x2. Nursing staff to search belongings. All his narcotics are on hold. Earlier in the day he was up to the bedside standing and using urinal. CK is 152. His bloodwork is essentially unremarkable. Pain management consulted to re-evaluate his chronic pain medications. 07/14/2024 Patient is evaluated in follow-up of medical floor. He is more awake and alert. He is having no acute complaints at this time. He has no focal neurological deficits. He is still lethargic and having difficulty with any conversation. Will continue to monitor and follow-up tomorrow patient may need neurology consultation. PT is recommending subacute rehab. 07/15/2024 Patient is evaluated in follow-up on the medical floor he is sitting up in the chair today he is more awake alert oriented he is now talkative. He does state that he is having some intermittent pain generalized however we are continuing to hold his oral Dilaudid and oral oxycodone as he was significantly altered on admission likely from the polysubstance abuse. He will require subacute rehabilitation on discharge PT did evaluate this patient. Medically he is stabl e for discharge we are now awaiting subacute rehab placement from social work. Will likely happen in the next 1 to 2 days as referrals have not been sent yet. Review of Systems Constitutional: Denied any fatigue denied any fever. Cardio vascular: denied any chest pain, palpitations Gastrointestinal: denied any nausea, vomiting, diarrhea Pulmonary: Denied any shortness of breath cough Neurologic denied any new focal deficits All inpatient medications were reviewed and appropriate changes in these medications as dictated in the interval history and assessment and plan. PHYSICAL EXAMINATION: GENERAL: The patient is alert and oriented x1-2, not in any acute distress. Well developed, well nourished. HEENT: Pupils are round and equally reacting to light. EOMI. No scleral icterus. No conjunctival pallor. Normocephalic, atraumatic. No pharyngeal erythema. No thyromegaly. CARDIOVASCULAR: S1 and S2 present. No murmurs, rubs, or gallops. PULMONARY: Chest is clear to auscultation, no wheezing or crackles. ABDOMEN: Soft, nontender, nondistended, normoactive bowel sounds. No palpable or ganomegaly. MUSCULOSKELETAL: No joint swelling or deformity. EXTREMITIES: No cyanosis, clubbing, or pedal edema. NEUROLOGICAL: Gross neurological examination did not reveal any focal deficits. SKIN: No rashes. Assessment and Plan 1. Altered mental status from acute toxic encephalopathy; likely narcotic overdose; patient takes Dilaudid 8 mg twice daily, oxycodone 18 mg p.o. twice daily, tizanidine 8 mg 4 times daily, Flexeril 10 mg 4 times daily -CT of the head completed in ED has been unremarkable for any acute process --Patient received Narcan and brought to ED after which he became completely alert and oriented -- Altered again after CT of the head -Will hold all medications at this time; patient received fluid resuscitation's 2 L of normal saline in ED ED; will continue with normal saline at rate of 75 cc an hour -Consult pain management for review of medications 2. Rhabdomyolysis; CK is elevated at 587 -Was found on the floor unresponsive by the -Patient has been placed on normal saline at rate of 75 cc an hour; we will monitor and trend CK -Creatinine within normal limit at 0.84 3. Mild NAOMIE; BUN slightly elevated at 48; creatinine remains within normal limit; patient is currently on IV fluids; we will monitor BULL's, daily weights, renal function electrolytes; avoid nephrotoxins and hypotension -Renal Function now normal 4. Transaminitis; AST elevated at 60; likely due to medication; will trend liver enzymes -LFTs have been trending down 5. Diabetes mellitus by history; monitor Accu-Cheks before every meal and at bedtime with insulin sliding scale 6. Hypertension; currently not on any antihypertensive therapy and blood pressures are improved. 7. Chronic back pain; patient takes Dilaudid, hydromorphone, tizanidine and Flexeril; all medications placed on hold DVT prophylaxis; SCDs/subcu heparin CODE STATUS; full code Patients mentation has significantly improved. He is pending social work evaluation and referral placements for [facility]. Pain management to review his external medications although will likely recommend to hold narcotics as he was significantly altered on admission. Pending [facility] at this time. The impression and plan of care has been dictated by Marley Bonilla Nurse Practitioner as directed. Dr. Kalia MD I have performed a history and physical examination and medical decision making of this patient, discussed the same with the dictator, and agree with the dictators assessment and plan as written, documented as a scribe. Based on total visit time, I have performed more than 50% of this visit. Objective - Vital Signs Vital signs: Vital Signs Temp 98.4 F 07/15/24 12:45 Pulse 71 07/15/24 12:45 Resp 16 07/15/24 12:45 BP 118/66 07/15/24 12:45 Pulse Ox 96 07/15/24 12:45 FiO2 Intake & Output 07/14/24 07/15/24 07/15/24 18:59 06:59 18:59 Intake Total 1860 Balance 1860 Intake: Oral 1860 Other: Voiding Method Urinal Urinal Urinal Diaper # Voids 3 2 - Labs CBC & Chem 7: 07/13/24 08:20 07/13/24 08:20 Labs: Abnormal Lab Results - Last 24 Hours (Table) 07/14/24 07/14/24 07/14/24 Range/Units 17:04 17:21 19:43 POC Glucose (mg/dL) 113 H 183 H (70-110) mg/dL Urine Bacteria Rare H (None) /hpf Urine Mucus Rare H (None) /hpf Assessment and Plan Time with Patient: Less than 30
[2024-07-15 17:09] LABS: Glucose,Whole Blood 169 mg/dL (70-110)
[2024-07-15 20:28] LABS: Glucose,Whole Blood 121 mg/dL (70-110)
[2024-07-15] MEDS: ACETAMINOPHEN TAB 325 MG TAB PO PRN (22:21)
[2024-07-16 07:31] LABS: Glucose,Whole Blood 79 mg/dL (70-110)
[2024-07-16 09:17] LABS: ALT 30 U/L (10-49); AST 27 U/L (14-35); Albumin 3.4 g/dL (3.8-4.9); Alkaline Phosphatase 100 U/L (41-126); Blood Urea Nitrogen 17.4 mg/dL (9.0-27.0); Calcium 8.6 mg/dL (8.7-10.3); Carbon Dioxide 25.1 mmol/L (21.6-31.8); Chloride 105 mmol/L (96-109); Globulin 1.7 g/dL (1.6-3.3); Glucose 114 mg/dL (70-110); Magnesium 1.9 mg/dL (1.5-2.4); Potassium 4.3 mmol/L (3.5-5.5); Sodium 141 mmol/L (135-145); Total Bilirubin 0.5 mg/dL (0.3-1.2); Total Protein 5.1 g/dL (6.2-8.2)
[2024-07-16 10:48] LABS: Basophils # (A) 0.02 X 10*3/uL (0.00-0.10); Basophils % (A) 0.4 %; Eosinophils # (A) 0.16 X 10*3/uL (0.04-0.35); Eosinophils % (A) 2.9 %; HCT 40.7 % (39.6-50.0); HGB 12.6 g/dL (13.0-17.0); Lymphocytes # (A) 1.36 X 10*3/uL (0.90-5.00); Lymphocytes % (A) 24.4 %; MCH 28.4 pg (27.0-32.0); MCV 91.7 FL (80.0-97.0); Mean Platelet Volume 10.4 FL (9.5-12.2); Monocytes # (A) 0.72 X 10*3/uL (0.20-1.00); Monocytes % (A) 12.9 %; NRBC Per 100 WBC 0 X 10*3/uL (0.00-0.01); Platelet Count 246 X 10*3/uL (140-440); RBC 4.44 X 10*6/uL (4.40-5.60); RDW 14.5 % (11.5-14.5); WBC 5.58 X 10*3/uL (4.50-10.00)
[2024-07-16 12:23] LABS: Glucose,Whole Blood 163 mg/dL (70-110)
--- NOTE | 2024-07-16 13:01 | P.PAINPG ---
Objective - Vital Signs Vital signs: Vital Signs Temp 98.2 F 07/16/24 12:11 Pulse 67 07/16/24 12:11 Resp 18 07/16/24 12:11 BP 130/71 07/16/24 12:11 Pulse Ox 95 07/16/24 12:11 FiO2 Intake & Output 07/15/24 07/16/24 07/16/24 18:59 06:59 18:59 Intake Total 660 Output Total 150 Balance 660 -150 Intake: Oral 660 Output: Urine 150 Other: Voiding Method Urinal Urinal Diaper Diaper Incontinent # Voids 2 1 - Labs CBC & Chem 7: 07/16/24 04:34 07/16/24 04:34 Labs: Abnormal Lab Results - Last 24 Hours (Table) 07/15/24 07/15/24 07/16/24 Range/Units 17:07 20:24 04:34 Hgb 12.6 L (13.0-17.0) g/dL MCHC 31.0 L (32.0-37.0) g/dL BUN/Creatinine Ratio (12.00-20.00) Ratio Glucose (70-110) mg/dL POC Glucose (mg/dL) 169 H 121 H (70-110) mg/dL Calcium (8.7-10.3) mg/dL Total Protein (6.2-8.2) g/dL Albumin (3.8-4.9) g/dL 07/16/24 07/16/24 Range/Units 04:34 12:14 Hgb (13.0-17.0) g/dL MCHC (32.0-37.0) g/dL BUN/Creatinine Ratio 29.00 H (12.00-20.00) Ratio Glucose 114 H (70-110) mg/dL POC Glucose (mg/dL) 163 H (70-110) mg/dL Calcium 8.6 L (8.7-10.3) mg/dL Total Protein 5.1 L (6.2-8.2) g/dL Albumin 3.4 L (3.8-4.9) g/dL PQRS Measure Charge Sheet Comment: HISTORY OF PRESENT ILLNESS: A 58 yr old inpatient male as a referral from [facility] presents today w severe acute back and limb pain for evaluation. Pt had been dozing in and out of consciousness for 1-2 days until pt was admitted approximately 4 days ago. He is diabetic but his glucose reading upon arrival was 127. He became more alert after given a Narcan actuation and today has been alert most of the day. He tested positive for opiates of which is listed in routine medications. Pt states pain is provoked with over activity, stating "all four corners" are aching him, achy in character without radiating pain. Pain is provoked by any movement. He has been peeling off Lidoderm and refusing Tylenol by various nurses when o ffered. Pain is alleviated by medications (Lidoderm 4% QD, Tyl 650mg q6h prn), repositioning and rest . PMH: OA, NIDDM II, HTN PSH: Lumbar surgery w Hardware, R Knee Surgery, R Shoulder Surgery SH: Unknown tobacco use history, Unknown ETOH use history, Hx of Heroin use FH: Non contributory All: See list Meds: See list REVIEW OF ORGAN SYSTEMS: CONSTITUTIONAL: No fevers or chills. No recent weight loss. NEUROLOGICAL: + numbness and tingling along the distal extremities. No seizure disorders or headaches. MUSCULOSKELETAL: + pain PSYCHIATRIC: Denies current depression or suicidal thoughts. Physical Examinations : Constitutional : Cooperative , not in acute distress . Slow cerebration, slurred speech Neurologic : Cranial nerve II to XII intact. No focal neurological deficits. Psychiatric : alert & oriented x 3. Matching mood & appropriate affect. Judgment & insight intact. Musculoskeletal : Cervical Spine Motor strength in the deltoid and biceps: Normal right side. Normal Left side Motor strength biceps and the wrist extensors: Normal right side . Normal left side Motor strength in the triceps muscle: Normal right side. Normal left side Deep tendon reflexes: Normal at the biceps. Normal at Brachioradialis. Normal at triceps Vertebral body tenderness to deep palpation over Cervical facet loading test: positive bilaterally Spurling test: positive bilaterally Neck distraction test: positive bilaterally Greg sign: positive bilaterally Lumbar spine Motor strength lower extremities ,thigh and legs 5/5 Right side , 5/5 Left side Deep tendon reflexes : Normal Knee Jerk. Normal Ankle Jerk Vertebral body tenderness over Jacques Test positive Lumbar facet Loading Test: positive Right / positive Left Range of motion of the lumbar spine Flexion 30 degrees, extension 10 degrees Straight Leg Raise test: Left/ Right positive at degrees Nidia test: positive right / positive left. Severe tenderness over the Sacroiliac joint on the Right / Left sides Gaenslen test: positive bilaterally Seated flexion test: positive bilaterally. Sacral spine : Severe tenderness over the Sacroiliac joint: right side / left side Range of motion: Flexion of the lumbar spine <60 degrees Range of motion: Extension of the lumbar spine <20 degrees Gaenslen's Test positive Nidia test: positive right side / left side Thigh Thrust Test Sacral Thrust Test Assessment/ Plan : Generalized pain, Opioid toxicity Recommendation of medication management. Add Toradol 15mg/mL IVP q6h prn severe pain. Pt conscious state is improving and will likely be discharged to a subacute care facility. All questions answered. I have spent greater than 30 minutes on patient care today. Dr Vital was av ailable by phone for the evaluation of this patient. The time was used to review the medical records including relevant urine studies and Prescription history (MAPs), review of the available imaging, evaluation and examination of the patient, coordination of care with the medical staff and if applicable referring physicians, as well as creation of the medical record - Pain Location Left Thigh Non-Pharmacological Interventions: Position/Reposition Pharmacological Interventions: Discuss Pain Med Options PQRS Narrative: Smoking Status Never smoker Blood Pressure [Right Arm] 130/71 Blood Pressure 138/89 Pain Intensity [Left Thigh] 6 Pain Intensity [Back] 0 Pain Intensity [None] 0 Pain Intensity 2 Pain Scale Used Numeric (1 - 10) Scale Used Numeric (1 - 10) Home Medications: Ambulatory Orders Cyclobenzaprine [Flexeril] 10 mg PO TID PRN 07/12/24 Furosemide [Lasix] 20 mg PO QID PRN 07/12/24 HYDROmorphone HCL [Dilaudid] 8 mg PO BID PRN 07/12/24 Lidocaine 5% Patch [Lidoderm] 1 patch TOPICAL DAILY 07/12/24 Linaclotide [Linzess] 145 mcg PO DAILY PRN 07/12/24 Oxycodone Myristate [Xtampza ER] 18 mg PO BID 07/12/24 lisinopriL [Zestril] 20 mg PO DAILY 07/12/24 tiZANidine HCL 8 mg PO QID PRN 07/12/24 Controlled Substance Measures - Controlled Substance Measures Is patient prescribed a controlled substance at discharge?: No
--- NOTE | 2024-07-16 14:16 | P.DS ---
Providers Date of admission: 07/12/24 15:24 Attending physician: Darrion Nelson MD Primary care physician: Rosendo Mota Hospital Course: Final Diagnosis -Altered mental status from acute toxic encephalopathy; likely narcotic overdose; patient takes Dilaudid 8 mg twice daily, oxycodone 18 mg p.o. twice daily, tizanidine -Rhabdomyolysis; CK is elevated at 587 -Mild NAOMIE; BUN slightly elevated at 48; creatinine remains within normal limit -Transaminitis; AST elevated at 60; likely due to medication; have been trending down -Diabetes mellitus by history -Hypertension; currently not on any antihypertensive therapy and blood pressures are improved. -Chronic back pain; patient takes Dilaudid, hydromorphone, tizanidine and Flexeril; all medications placed on hold Discharge Disposition Patient stable for DC to [facility]. Avoid all narcotics. Follow up with his foxing painter on discharge Paul Hernandez. Hospital Course 58-year-old male who was found down and unresponsive on his floor at home according to EMS the stated that he has been on the floor since Saturday. EMS gave the patient Narcan on the way and he became much more responsive he is able to answer some questions he denies taking an excessive amount of any medications. Patient denies injecting any meds however he does appear to have some injection zurita on his arms. Patient is not able to give us any further history. Patient remains altered at the time of examination; likely resulting from long-acting narcotic; patient was admitted and monitored closely with pain management consultation. Blood work reveals WBC of 11.6, hemoglobin of 14.3 and platelet count of 242, sodium 138, potassium 3.9, BUNs/creatinine of 48/0.84, and blood glucose of 117, troponin less than 0.012, ammonia of less than 9, CK elevated at 587. Chest x-ray is negative for any acute abnormality. CT of the brain shows no acute intracranial abnormality. All narcotics have been held clinically patient improved. He has no focal weakness. He has been mostly bed rest. PT saw and recommending subacute rehab. His CBC and BMP are unremarkable. Please see medication reconciliation for a list of current medications. Thank you for allowing us to participate in the care of this patient. The impression and plan of care has been dictated by Marley Bonilla, Nurse Practitioner as directed. Dr. Kalia MD I have performed a history and physical examination and medical decision making of this patient, discussed the same with the dictator, and agree with the dictators assessment and plan as written, documented as a scribe. Based on total visit time, I have performed more than 50% of this visit. Patient Condition at Discharge: Fair Plan - Discharge Summary Discharge Rx Participant: No New Discharge Prescriptions: New Heparin Sodium,Porcine (1 ml) [Heparin Sodium] 5,000 unit SQ Q12HR each INSULIN LISPRO (HumaLOG) [HumaLOG] 0 unit SQ ACHS each Continue lisinopriL [Zestril] 20 mg PO DAILY Lidocaine 5% Patch [Lidoderm 5% Patch] 1 patch TOPICAL DAILY Discontinued Linaclotide [Linzess] 145 mcg PO DAILY PRN PRN Reason: Gi Upset Cyclobenzaprine [Flexeril] 10 mg PO TID PRN PRN Reason: Muscle Spasm Oxycodone Myristate [Xtampza ER] 18 mg PO BID Furosemide [Lasix] 20 mg PO QID PRN PRN Reason: Edema HYDROmorphone HCL [Dilaudid] 8 mg PO BID PRN PRN Reason: Pain tiZANidine HCL 8 mg PO QID PRN PRN Reason: Muscle Spasm Discharge Medication List Lidocaine 5% Patch [Lidoderm 5% Patch] 1 patch TOPICAL DAILY 07/12/24 [History] lisinopriL [Zestril] 20 mg PO DAILY 07/12/24 [History] Heparin Sodium,Porcine (1 ml) [Heparin Sodium] 5,000 unit SQ Q12HR each 07/16/24 [Rx] INSULIN LISPRO (HumaLOG) [HumaLOG] 0 unit SQ ACHS each 07/16/24 [Rx] Follow up Appointment(s)/Referral(s): Rosendo Mota MD [Primary Care Provider] - 1-2 days Paul Hernandez PAC [REFERRING] - 1 Week Ambulatory/Diagnostic Orders: Basic Metabolic Panel [LAB.AMB] Time Frame: 3 Days, Location: None Selected Activity/Diet/Wound Care/Special Instructions: Neurology follow up outpatient with his known pain mgt/neurologist Paul Hernandez Discharge Disposition: TRANSFER TO SNF/F
[2024-07-16 17:15] LABS: Glucose,Whole Blood 240 mg/dL (70-110)
[2024-07-16 20:08] LABS: Glucose,Whole Blood 158 mg/dL (70-110)
[2024-07-17] MEDS: KETOROLAC 15 MG/ML 1 ML VIAL IM PRN (03:50)
[2024-07-17 08:19] LABS: Glucose,Whole Blood 98 mg/dL (70-110)
--- NOTE | 2024-07-17 10:08 | CDI ---
Documentation Clarification Form Date: 07/17/2024 09:35:41 AM From: Antonia Bonilla RN, CCDS Phone: [phone] Admit Date: 07/12/2024 03:24:00 PM Patient Name: Gianfranco Rodriguez Visit Number: [id number] Discharge Date: ATTENTION: The Clinical Documentation Specialists (CDI) and [facility] Coding Staff appreciate your assistance in clarifying documentation. Please respond to the clarification below the line at the bottom and electronically sign. The CDI & [facility] Coding staff will review the response and follow-up if needed. Please note: Queries are made part of the Legal Health Record. If you have any questions, please contact the author of this message via ITS. Provider: Marley Bonilla Rhabdomyolysis is documented in the H/P and subsequent progress notes. Additional clarification regarding the type of rhabdomyolysis is requested. History/Risk Factors: Chronic back pain, Clinical Indicators: 58-year-old male found on floor unresponsive by his . Had been on the floor since Saturday (admit07/12/24) Patient is alert and oriented x 2 on arrival to ED. CK 587, 142,BUN 48, Cr 0.84 Treatment: .9NS 1,000 ML Bolus x2 Please clarify the type of rhabdomyolysis, if known: [ x ] Traumatic rhabdomyolysis due to fall [ ] Traumatic rhabdomyolysis due to prolonged immobility [ ] Non traumatic rhabdomyolysis due to medication (please specify) [ ] Other, please specify [ ] Unable to Determine (Template Last Revised: July 2020) MTDD
[2024-07-17 11:29] LABS: Glucose,Whole Blood 95 mg/dL (70-110)
--- NOTE | 2024-07-17 15:46 | XR ---
EXAMINATION TYPE: XR chest 2V DATE OF EXAM: 07/17/2024 3:35 PM COMPARISON: Chest radiographs from 07/12/2024 TECHNIQUE: XR chest 2V Frontal and lateral views of the chest. CLINICAL INDICATION:Male, 58 years old with history of cough; FINDINGS: Lungs/Pleura: There is no evidence of pleural effusion or pneumothorax. Right basilar opacities. Pulmonary vascularity: Unremarkable. Heart/mediastinum: Cardiomediastinal silhouette is unremarkable. Atherosclerotic calcifications are seen in the aorta. Musculoskeletal: Multiple level degenerative disc disease changes seen throughout the spine. IMPRESSION: Subtle right basilar opacities which may represent atelectasis or infiltrate. [facility] Bon[facility], , 07/17/2024 3:44 PM
[2024-07-17 17:20] LABS: Glucose,Whole Blood 106 mg/dL (70-110)
--- NOTE | 2024-07-17 18:07 | P.PN ---
Subjective Progress Note Date: 07/17/24 Patient evaluated today in the ER he required sternal rub to arouse. He is alert x2. Nursing staff to search belongings. All his narcotics are on hold. Earlier in the day he was up to the bedside standing and using urinal. CK is 152. His bloodwork is essentially unremarkable. Pain management consulted to re-evaluate his chronic pain medications. 07/14/2024 Patient is evaluated in follow-up of medical floor. He is more awake and alert. He is having no acute complaints at this time. He has no focal neurological deficits. He is still lethargic and having difficulty with any conversation. Will continue to monitor and follow-up tomorrow patient may need neurology consultation. PT is recommending subacute rehab. 07/15/2024 Patient is evaluated in follow-up on the medical floor he is sitting up in the chair today he is more awake alert oriented he is now talkative. He does state that he is having some intermittent pain generalized however we are continuing to hold his oral Dilaudid and oral oxycodone as he was significantly altered on admission likely from the polysubstance abuse. He will require subacute rehabilitation on discharge PT did evaluate this patient. Medically he is stabl e for discharge we are now awaiting subacute rehab placement from social work. Will likely happen in the next 1 to 2 days as referrals have not been sent yet. 07/17/2024 Patient evaluated today resting in bed. He is complaining of a dry cough. He is pending authorization for discharge to [facility]. Chest xray reveals subtle right basilar opacities with may represent atelectasis or pneumonia. Review of Systems Constitutional: Denied any fatigue denied any fever. Cardio vascular: denied any chest pain, palpitations Gastrointestinal: denied any nausea, vomiting, diarrhea Pulmonary: Denied any shortness of breath cough Neurologic denied any new focal deficits All inpatient medications were reviewed and appropriate changes in these medications as dictated in the interval history and assessment and plan. PHYSICAL EXAMINATION: GENERAL: The patient is alert and oriented x1-2, not in any acute distress. Well developed, well nourished. HEENT: Pupils are round and equally reacting to light. EOMI. No scleral icterus. No conjunctival pallor. Normocephalic, atraumatic. No pharyngeal erythema. No thyromegaly. CARDIOVASCULAR: S1 and S2 present. No murmurs, rubs, or gallops. PULMONARY: Chest is clear to auscultation, no wheezing or crackles. ABDOMEN: Soft, nontender, nondistended, normoactive bowel sounds. No palpable organomegaly. MUSCULOSKELETAL: No joint swelling or deformity. EXTREMITIES: No cyanosis, clubbing, or pedal edema. NEUROLOGICAL: Gross neurological examination did not reveal any focal deficits. SKIN: No rashes. Assessment and Plan 1. Altered mental status from acute toxic encephalopathy; likely narcotic overdose; patient takes Dilaudid 8 mg twice daily, oxycodone 18 mg p.o. twice daily, tizanidine 8 mg 4 times daily, Flexeril 10 mg 4 times daily -CT of the head completed in ED has been unremarkable for any acute process --Patient received Narcan and brought to ED after which he became completely alert and oriented -- Altered again after CT of the head -Will hold all medications at this time; patient received fluid resuscitation's 2 L of normal saline in ED ED; will continue with normal saline at rate of 75 cc an hour -Consult pain management for review of medications 2. Rhabdomyolysis traumatic due to fall ; CK is elevated at 587 -Was found on the floor unresponsive by the -Patient has been placed on normal saline at rate of 75 cc an hour; we will monitor and trend CK -Creatinine within normal limit at 0.84 3. Mild NAOMIE; BUN slightly elevated at 48; creatinine remains within normal limit; patient is currently on IV fluids; we will monitor BULL's, daily weights, renal function electrolytes; avoid nephrotoxins and hypotension -Renal Function now normal 4. Transaminitis; AST elevated at 60; likely due to medication; will trend liver enzymes -LFTs have been trending down 5. Diabetes mellitus by history; monitor Accu-Cheks before every meal and at bedtime with insulin sliding scale 6. Hypertension; currently not on any antihypertensive therapy and blood pressures are improved. 7. Chronic back pain; patient takes Dilaudid, hydromorphone, tizanidine and Flexeril; all medications placed on hold -Patient continues with lidocaine patch and tylenol -Would recommend to continue to hold all narcotics -Pain management consultation 8. Cough and chest xray revealing atelectasis; incentive spirometer has been ordered. DVT prophylaxis; SCDs/subcu heparin CODE STATUS; full code Patients mentation has significantly improved. He is pending social work evaluation and referral placements for [facility]. Pain management to review his external medications although will likely recommend to hold narcotics as he was significantly altered on admission. Pending [facility] at this time has been accepted at [facility] and currently pending insurance authorization The impression and plan of care has been dictated by Marley Bonilla Nurse Practitioner as directed. Dr. Kalia MD I have performed a history and physical examination and medical decision making of this patient, discussed the same with the dictator, and agree with the dictators assessment and plan as written, documented as a scribe. Based on total visit time, I have performed more than 50% of this visit. Objective - Vital Signs Vital signs: Vital Signs Temp 98.9 F 07/17/24 14:00 Pulse 98 07/17/24 14:00 Resp 19 07/17/24 14:00 BP 113/69 07/17/24 14:00 Pulse Ox 96 07/17/24 14:00 FiO2 Intake & Output 07/16/24 07/17/24 07/17/24 18:59 06:59 18:59 Intake Total 1080 Output Total 400 400 Balance 680 -400 Intake: Oral 1080 Output: Urine 400 400 Other: Voiding Method Urinal Urinal Urinal Diaper Diaper Diaper # Voids 2 3 - Labs CBC & Chem 7: 07/16/24 04:34 07/16/24 04:34 Labs: Abnormal Lab Results - Last 24 Hours (Table) 07/16/24 Range/Units 20:06 POC Glucose (mg/dL) 158 H (70-110) mg/dL Assessment and Plan Time with Patient: Less than 30
[2024-07-17 19:54] LABS: Glucose,Whole Blood 114 mg/dL (70-110)
[2024-07-18 07:10] LABS: Glucose,Whole Blood 80 mg/dL (70-110)
[2024-07-18 08:18] LABS: Basophils % (A) 0 %; Eosinophils # (A) 0.1 k/uL (0-0.7); Eosinophils % (A) 2 %; HCT 45.5 % (39.0-53.0); HGB 13.7 gm/dL (13.0-17.5); Hypochromasia Moderate; Lymphocytes # (A) 1.2 k/uL (1.0-4.8); Lymphocytes % (A) 17 %; MCH 28.3 pg (25.0-35.0); MCHC 30.2 g/dL (31.0-37.0); MCV 93.8 fL (80.0-100.0); Mean Platelet Volume 7.1; Monocytes # (A) 0.5 k/uL (0-1.0); Monocytes % (A) 7 %; Neutrophils # (A) 5.1 k/uL (1.3-7.7); Neutrophils % (A) 72 %; Platelet Count 266 k/uL (150-450); RBC 4.85 m/uL (4.30-5.90); RDW 14.5 % (11.5-15.5); WBC 7.1 k/uL (3.8-10.6)
[2024-07-18 12:21] LABS: Glucose,Whole Blood 119 mg/dL (70-110)
--- NOTE | 2024-07-18 13:09 | P.PN ---
Subjective Patient evaluated today in the ER he required sternal rub to arouse. He is alert x2. Nursing staff to search belongings. All his narcotics are on hold. Earlier in the day he was up to the bedside standing and using urinal. CK is 152. His bloodwork is essentially unremarkable. Pain management consulted to re-evaluate his chronic pain medications. 07/14/2024 Patient is evaluated in follow-up of medical floor. He is more awake and alert. He is having no acute complaints at this time. He has no focal neurological deficits. He is still lethargic and having difficulty with any conversation. Will continue to monitor and follow-up tomorrow patient may need neurology consultation. PT is recommending subacute rehab. 07/15/2024 Patient is evaluated in follow-up on the medical floor he is sitting up in the chair today he is more awake alert oriented he is now talkative. He does state that he is having some intermittent pain generalized however we are continuing to hold his oral Dilaudid and oral oxycodone as he was significantly altered on admission likely from the polysubstance abuse. He will require subacute rehabilitation on discharge PT did evaluate this patient. Medically he is stable for discharge we are now awaiting subacute rehab placement from social work. Will likely happen in the next 1 to 2 days as referrals have not been sent yet. 07/17/2024 Patient evaluated today resting in bed. He is complaining of a dry cough. He is pending authorization for discharge to [facility]. Chest xray reveals subtle right basilar opacities with may represent atelectasis or pneumonia. 07/18 Patient mentation improved after stopping his narcotics He still complaining from left hip and low back pain, he is getting Toradol and lidocaine patch, we can increase his lidocaine patch to 2. Trying to avoid narcotics He has been complaining from occasional cough, chest x-ray showing possible right lower basal opacities suspicious for atelectasis and infiltrate, Procalcitonin is requested and is pending CBC from today is normal Discussed with staff Objective - Vital Signs Vital signs: Vital Signs Temp 97.7 F 07/18/24 12:21 Pulse 82 07/18/24 12:21 Resp 16 07/18/24 12:21 BP 126/74 07/18/24 12:21 Pulse Ox 94 L 07/18/24 12:21 FiO2 Intake & Output 07/17/24 07/18/24 07/18/24 18:59 06:59 18:59 Output Total 350 Balance -350 Output: Urine 350 Other: Voiding Method Urinal Urinal Diaper Diaper # Voids 1 2 # Bowel Movements 1 - Exam GENERAL: The patient is alert and oriented x3, not in any acute distress. Well developed, well nourished. HEENT: Pupils are round and equally reacting to light. EOMI. No scleral icterus. No conjunctival pallor. Normocephalic, atraumatic. No pharyngeal erythema. No thyromegaly. CARDIOVASCULAR: S1 and S2 present. No murmurs, rubs, or gallops. PULMONARY: Chest is clear to auscultation, no wheezing , no crackles. ABDOMEN: Soft, nontender, nondistended, normoactive bowel sounds. No palpable organomegaly. MUSCULOSKELETAL: No joint swelling or deformity. EXTREMITIES: No cyanosis, clubbing, or pedal edema. NEUROLOGICAL: Gross neurological examination did not reveal any focal deficits. SKIN: No rashes. no petechiae. - Labs CBC & Chem 7: 07/18/24 07:07 07/16/24 04:34 Labs: Abnormal Lab Results - Last 24 Hours (Table) 07/17/24 07/18/24 07/18/24 Range/Units 19:49 07:07 12:19 MCHC 30.2 L (31.0-37.0) g/dL POC Glucose (mg/dL) 114 H 119 H (70-110) mg/dL Assessment and Plan Assessment: Assessment and Plan 1. Altered mental status from acute toxic encephalopathy; likely narcotic overdose; patient takes Dilaudid 8 mg twice daily, oxycodone 18 mg p.o. twice daily, tizanidine 8 mg 4 times daily, Flexeril 10 mg 4 times daily -CT of the head completed in ED has been unremarkable for any acute process --Patient received Narcan and brought to ED after which he became completely alert and oriented -- Altered again after CT of the head -Will hold all medications at this time; patient received fluid resuscitation's 2 L of normal saline in ED ED; will continue with normal saline at rate of 75 cc an hour -Consult pain management for review of medications - resolved now 2. Rhabdomyolysis traumatic due to fall ; CK is elevated at 587 -Was found on the floor unresponsive by the -Patient has been placed on normal saline at rate of 75 cc an hour; we will monitor and trend CK -Creatinine within normal limit at 0.84 3. Mild NAOMIE; BUN slightly elevated at 48; creatinine remains within normal limit; patient is currently on IV fluids; we will monitor BULL's, daily weights, renal function electrolytes; avoid nephrotoxins and hypotension -Renal Function now normal 4. Transaminitis; AST elevated at 60; likely due to medication; will trend liver enzymes -LFTs have been trending down 5. Diabetes mellitus by history; monitor Accu-Cheks before every meal and at bedtime with insulin sliding scale 6. Hypertension; currently not on any antihypertensive therapy and blood pressures are improved. 7. Chronic back pain; patient takes Dilaudid, hydromorphone, tizanidine and Flexeril; all medications placed on hold -Patient continues with lidocaine patch and tylenol -Would recommend to continue to hold all narcotics -Pain management consultation 8. Cough and chest xray revealing atelectasis; incentive spirometer has been ordered. Right lower basal atelectasis, pneumonia felt less likely. We will check pro- Calcitonin DVT prophylaxis; SCDs/subcu heparin CODE STATUS; full code
[2024-07-18 15:53] VITALS: BMI 27.8
[2024-07-18 17:12] LABS: Glucose,Whole Blood 114 mg/dL (70-110)
[2024-07-18 20:18] LABS: Glucose,Whole Blood 153 mg/dL (70-110)
[2024-07-19 07:03] LABS: Glucose,Whole Blood 95 mg/dL (70-110)
[2024-07-19 12:06] LABS: Glucose,Whole Blood 129 mg/dL (70-110)
--- NOTE | 2024-07-19 15:18 | P.PN ---
Subjective Patient evaluated today in the ER he required sternal rub to arouse. He is alert x2. Nursing staff to search belongings. All his narcotics are on hold. Earlier in the day he was up to the bedside standing and using urinal. CK is 152. His bloodwork is essentially unremarkable. Pain management consulted to re-evaluate his chronic pain medications. 07/14/2024 Patient is evaluated in follow-up of medical floor. He is more awake and alert. He is having no acute complaints at this time. He has no focal neurological deficits. He is still lethargic and having difficulty with any conversation. Will continue to monitor and follow-up tomorrow patient may need neurology consultation. PT is recommending subacute rehab. 07/15/2024 Patient is evaluated in follow-up on the medical floor he is sitting up in the chair today he is more awake alert oriented he is now talkative. He does state that he is having some intermittent pain generalized however we are continuing to hold his oral Dilaudid and oral oxycodone as he was significantly altered on admission likely from the polysubstance abuse. He will require subacute rehabilitation on discharge PT did evaluate this patient. Medically he is stable for discharge we are now awaiting subacute rehab placement from social work. Will likely happen in the next 1 to 2 days as referrals have not been sent yet. 07/17/2024 Patient evaluated today resting in bed. He is complaining of a dry cough. He is pending authorization for discharge to [facility]. Chest xray reveals subtle right basilar opacities with may represent atelectasis or pneumonia. 07/18 Patient mentation improved after stopping his narcotics He still complaining from left hip and low back pain, he is getting Toradol and lidocaine patch, we can increase his lidocaine patch to 2. Trying to avoid narcotics He has been complaining from occasional cough, chest x-ray showing possible right lower basal opacities suspicious for atelectasis and infiltrate, Procalcitonin is requested and is pending CBC from today is normal Discussed with staff 07/19 Patient sitting up in bed looks lethargic but he follows command, he talks l ittle bit and he moves slowly. at bedside, she thinks he is improving every day little bit but he is not back to baseline yet and she is agreeable that he requires rehab upon discharge. Patient able to tolerate diet. He has some diarrhea, C. difficile is negative, Imodium is provided He has chest x-ray showing most likely atelectasis, no fever or leukocytosis and pro- Calcitonin was normal. He still have some pain in his hip area which is controlled now. Patient encouraged to consume more diet Objective - Vital Signs Vital signs: Vital Signs Temp 97.5 F L 07/19/24 12:05 Pulse 78 07/19/24 12:05 Resp 18 07/19/24 12:05 BP 113/72 07/19/24 12:05 Pulse Ox 96 07/19/24 12:05 FiO2 Intake & Output 07/18/24 07/19/24 07/19/24 17:59 06:59 18:59 Intake Total Output Total 350 Balance -350 Weight Intake: Oral Output: Urine 350 Other: Voiding Method Urinal Diaper # Voids 1 # Bowel Movements 0 - Exam GENERAL: The patient is alert and oriented x3, not in any acute distress. Well developed, well nourished. HEENT: Pupils are round and equally reacting to light. EOMI. No scleral icterus. No conjunctival pallor. Normocephalic, atraumatic. No pharyngeal erythema. No thyromegaly. CARDIOVASCULAR: S1 and S2 present. No murmurs, rubs, or gallops. PULMONARY: Chest is clear to auscultation, no wheezing , no crackles. ABDOMEN: Soft, nontender, nondistended, normoactive bowel sounds. No palpable organomegaly. MUSCULOSKELETAL: No joint swelling or deformity. EXTREMITIES: No cyanosis, clubbing, or pedal edema. NEUROLOGICAL: Gross neurological examination did not reveal any focal deficits. SKIN: No rashes. no petechiae. - Labs CBC & Chem 7: 07/18/24 07:07 07/16/24 04:34 Labs: Abnormal Lab Results - Last 24 Hours (Table) 07/18/24 07/18/24 07/19/24 Range/Units 17:10 20:17 12:05 POC Glucose (mg/dL) 114 H 153 H 129 H (70-110) mg/dL Assessment and Plan Assessment: Assessment and Plan 1. Altered mental status from acute toxic encephalopathy; likely narcotic overdose; patient takes Dilaudid 8 mg twice daily, oxycodone 18 mg p.o. twice daily, tizanidine 8 mg 4 times daily, Flexeril 10 mg 4 times daily -CT of the head completed in ED has been unremarkable for any acute process --Patient received Narcan and brought to ED after which he became completely alert and oriented -- Altered again after CT of the head -Will hold all medications at this time; patient received fluid resuscitation's 2 L of normal saline in ED ED; will continue with normal saline at rate of 75 cc an hour -Consult pain management for review of medications - resolved now 2. Rhabdomyolysis traumatic due to fall ; CK is elevated at 587 -Was found on the floor unresponsive by the -Patient has been placed on normal saline at rate of 75 cc an hour; we will monitor and trend CK -Creatinine within normal limit at 0.84 3. Mild NAOMIE; BUN slightly elevated at 48; creatinine remains within normal limit; patient is currently on IV fluids; we will monitor BULL's, daily weights, renal function electrolytes; avoid nephrotoxins and hypotension -Renal Function now normal 4. Transaminitis; AST elevated at 60; likely due to medication; will trend liver enzymes -LFTs have been trending down 5. Diabetes mellitus by history; monitor Accu-Cheks before every meal and at bedtime with insulin sliding scale 6. Hypertension; currently not on any antihypertensive therapy and blood pressures are improved. 7. Chronic back pain; patient takes Dilaudid, hydromorphone, tizanidine and Flexeril; all medications placed on hold -Patient continues with lidocaine patch and tylenol -Would recommend to continue to hold all narcotics -Pain management consultation 8. Cough and chest xray revealing atelectasis; incentive spirometer has been ordered. Right lower basal atelectasis, pneumonia felt less likely. We will check pro- Calcitonin DVT prophylaxis; SCDs/subcu heparin CODE STATUS; full code
[2024-07-19] MEDS: LOPERAMIDE 2 MG CAP PO STA (16:02)
[2024-07-19 17:33] LABS: Glucose,Whole Blood 190 mg/dL (70-110)
[2024-07-19 20:23] LABS: Glucose,Whole Blood 172 mg/dL (70-110)
[2024-07-20 01:25] VITALS: RESP 16
[2024-07-20] MEDS: LOPERAMIDE 2 MG CAP PO PRN (03:42)
[2024-07-20 07:09] LABS: Glucose,Whole Blood 95 mg/dL (70-110)
[2024-07-20 07:39] VITALS: BP 132/72; PULSE 82; TEMP 98.4
--- NOTE | 2024-07-20 10:41 | P.DS ---
Providers Date of admission: 07/12/24 15:24 Attending physician: Darrion Nelson MD Primary care physician: Rosendo Mota Hospital Course: Final Diagnosis -Altered mental status from acute toxic encephalopathy; likely narcotic overdose; patient takes Dilaudid 8 mg twice daily, oxycodone 18 mg p.o. twice daily, tizanidine -Rhabdomyolysis, traumatic from fall ; CK is elevated at 587 -Mild NAOMIE; BUN slightly elevated at 48; creatinine remains within normal limit -Transaminitis; AST elevated at 60; likely due to medication; have been trending down -Diabetes mellitus by history -Hypertension; currently not on any antihypertensive therapy and blood pressures are improved. -Chronic back pain; patient takes Dilaudid, hydromorphone, tizanidine and Flexeril; all medications placed on hold Discharge Disposition Patient stable for DC to [facility]. Avoid all narcotics. 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 Hospital Course 58-year-old male who was found down and unresponsive on his floor at home according to EMS the stated that he has been on the floor since Saturday. EMS gave the patient Narcan on the way and he became much more responsive he is able to answer some questions he denies taking an excessive amount of any me dications. Patient denies injecting any meds however he does appear to have some injection zurita on his arms. Patient is not able to give us any further history. Patient remains altered at the time of examination; likely resulting from long-acting narcotic; patient was admitted and monitored closely with pain management consultation. Blood work reveals WBC of 11.6, hemoglobin of 14.3 and platelet count of 242, sodium 138, potassium 3.9, BUNs/creatinine of 48/0.84, and blood glucose of 117, troponin less than 0.012, ammonia of less than 9, CK elevated at 587. Chest x-ray is negative for any acute abnormality. CT of the brain shows no acute intracranial abnormality. All narcotics have been held clinically patient improved. He has no focal weakness. He has been mostly bed rest. PT saw and recommending subacute rehab. His CBC and BMP are unremarkable. He has been monitored over the weekend and more awake and alert. He will be discharging to [facility] Please see medication reconciliation for a list of current medications. Thank you for allowing us to participate in the care of this patient. The impression and plan of care has been dictated by Marley Bonilla, Nurse Practitioner as directed. Dr. Kalia MD I have performed a history and physical examination and medical decision making of this patient, discussed the same with the dictator, and agree with the dictators assessment and plan as written, documented as a scribe. Based on total visit time, I have performed more than 50% of this visit. Patient Condition at Discharge: Fair Plan - Discharge Summary Discharge Rx Participant: No New Discharge Prescriptions: New Heparin Sodium,Porcine (1 ml) [Heparin Sodium] 5,000 unit SQ Q12HR each INSULIN LISPRO (HumaLOG) [HumaLOG] 0 unit SQ ACHS each Continue lisinopriL [Zestril] 20 mg PO DAILY Lidocaine 5% Patch [Lidoderm 5% Patch] 1 patch TOPICAL DAILY Discontinued Linaclotide [Linzess] 145 mcg PO DAILY PRN PRN Reason: Gi Upset Cyclobenzaprine [Flexeril] 10 mg PO TID PRN PRN Reason: Muscle Spasm Oxycodone Myristate [Xtampza ER] 18 mg PO BID Furosemide [Lasix] 20 mg PO QID PRN PRN Reason: Edema HYDROmorphone HCL [Dilaudid] 8 mg PO BID PRN PRN Reason: Pain tiZANidine HCL 8 mg PO QID PRN PRN Reason: Muscle Spasm Discharge Medication List Lidocaine 5% Patch [Lidoderm 5% Patch] 1 patch TOPICAL DAILY 07/12/24 [History] lisinopriL [Zestril] 20 mg PO DAILY 07/12/24 [History] Heparin Sodium,Porcine (1 ml) [Heparin Sodium] 5,000 unit SQ Q12HR each 07/16/24 [Rx] INSULIN LISPRO (HumaLOG) [HumaLOG] 0 unit SQ ACHS each 07/16/24 [Rx] Follow up Appointment(s)/Referral(s): Rosendo Mota MD [Primary Care Provider] - 1-2 days Paul Hernandez PAC [REFERRING] - 1 Week Ambulatory/Diagnostic Orders: Basic Metabolic Panel [LAB.AMB] Time Frame: 3 Days, Location: None Selected Activity/Diet/Wound Care/Special Instructions: Neurology follow up outpatient with his known pain mgt/neurologist Paul Hernandez
[2024-07-20 12:08] LABS: Glucose,Whole Blood 162 mg/dL (70-110)
== END 2024-07-20 12:16 | DRG 917 ==
LOC: EC 10:58 → OBSVTOIN 15:24 → 5NMEDONC 15:24
PROVIDERS: ADMIT Internal Medicine; ATTEND Internal Medicine
DX: T40.601A Poisoning by unspecified narcotics, accidental (unintentional), initial encounter (principal); G92.9 Unspecified toxic encephalopathy; E11.9 Type 2 diabetes mellitus without complications; I10 Essential (primary) hypertension; J98.11 Atelectasis; N17.9 Acute kidney failure, unspecified; M54.9 Dorsalgia, unspecified; R74.01 Elevation of levels of liver transaminase levels; G89.29 Other chronic pain; T79.6XXA Traumatic ischemia of muscle, initial encounter; W19.XXXA Unspecified fall, initial encounter; Z75.1 Person awaiting admission to adequate facility elsewhere; Z79.899 Other long term (current) drug therapy; Z79.891 Long term (current) use of opiate analgesic; Z79.1 Long term (current) use of non-steroidal anti-inflammatories (NSAID); Z88.8 Allergy status to other drugs, medicaments and biological substances; Z87.01 Personal history of pneumonia (recurrent)
CPT/HCPCS: 36415; 51701; 70450; 71046; 72125; 80048; 80053; 80143; 80179; 80306; 80320; 81003; 82140; 82550; 82803; 83605; 83735; 84145; 84443; 84484; 85025; 85610; 85730; 87324; 93005; 96360; 96361; 99285